=== PATIENT | female | born 1950 | race Caucasian/White ===

== ENCOUNTER 2016-08-12 13:09 | Inpatient (IN) | payer OTHER, MEDICARE ==
[~2016-08-12] VITALS: Ht 162.6 cm; Wt 119.1 kg
[2016-08-12] MEDS ORDERED: NITROGLYCERIN 0.4 MG SUBL TABLET As Ordered ONE (13:43)
[2016-08-12] MEDS ORDERED: ASPIRIN 81 MG CHEW TABLET As Ordered ONE (13:43)
[2016-08-12 13:59] LABS: BASO % 0.2 % (0.0-1.0); EOS # 0.1 K/mm3 (0.0-0.50); EOS % 0.5 % (0.0-3.0); LARGE UNSTAINED CELL # 0.1 K/mm3 (0.0-0.4); LARGE UNSTAINED CELL % 0.9 % (0.0-4.0); LYMPH # 0.9 K/mm3 (1.5-4.5); LYMPH % 7.8 % (24.0-44.0); MEAN CORPUSCULAR HEMOGLOBIN 29.2 pg (27.0-33.0); MEAN CORPUSCULAR HGB CONC 32.1 g/dl (32.0-36.5); MEAN CORPUSCULAR VOLUME 90.7 fl (80.0-96.0); MONO # 0.5 K/mm3 (0.0-0.8); MONO % 4.3 % (0.0-5.0); NEUTROPHILS # 9.7 K/mm3 (1.8-7.7); NEUTROPHILS % 86.3 % (36.0-66.0); PLATELET COUNT, AUTOMATED 172 k/mm3 (150-450); RED CELL DISTRIBUTION WIDTH 13.6 % (11.5-14.5); WHITE BLOOD COUNT 11.2 K/mm3 (4.0-10.0)
[2016-08-12 14:18] LABS: ANION GAP 9 MEQ/L (8-16); BLOOD UREA NITROGEN 16 MG/DL (7-18); CALCIUM LEVEL 8.8 MG/DL (8.8-10.2); CARBON DIOXIDE LEVEL 27 MEQ/L (21-32); CHLORIDE LEVEL 103 MEQ/L (98-107); CREATININE FOR GFR 0.97 MG/DL (0.55-1.02); GLOMERULAR FILTRATION RATE > 60.0 (>45); GLUCOSE, FASTING 181 MG/DL (80-110); POTASSIUM SERUM 3.7 MEQ/L (3.5-5.1); SODIUM LEVEL 139 MEQ/L (136-145)
[2016-08-12] MEDS ORDERED: ISOVUE-370 76% 100ML VIAL (Q9967) As Ordered ONE (14:43)
--- NOTE | 2016-08-12 15:04 | REP ---
CHEST X-RAY: TWO VIEWS. HISTORY: Chest pain. COMPARISON STUDY: December 11, 2015 FINDINGS: EKG monitoring electrodes and oxygen tubing overlie the chest. Heart is not enlarged. The lungs are well inflated and clear. Pleural angles are sharp. No significant bony abnormality is seen. IMPRESSION: No active disease. Signed by Kevan Bender MD 08/12/2016 03:06 P
--- NOTE | 2016-08-12 15:24 | REP ---
CT pulmonary angiogram: With IV contrast. History: Shortness of breath and chest pain. Comparison studies: No comparison CT studies. Comparison is made with today's chest x-ray. Contrast dose: 75 cc's of Isovue [address] technique: Helical scanning is acquired and overlapping 1.5 mm and contiguous 3 mm axial images are reformatted. In addition, a 3-D work station is deployed to generate thick slab maximum intensity projection images in sagittal and coronal imaging projections. CT pulmonary angiographic findings: There is good opacification of the pulmonary arterial tree. There is no CT evidence of pulmonary embolism. Thoracic aorta is normal in coarse, caliber and homogeneous in density. There is no evidence of aneurysm or dissection. No hilar or mediastinal mass or adenopathy is observed. No pleural effusion is seen. There is a mild pericardial effusion. No adrenal lesion is seen. The visualized upper abdominal structures are unremarkable. A prosthetic left shoulder joint is seen casting some spray artifact. The lung gerber show no evidence of infiltrate or mass lesion. No bony destructive lesion is appreciated. Impression: No CT evidence of pulmonary embolism. Small pericardial effusion noted. Otherwise unremarkable CT pulmonary angiogram. Signed by Kevan Bender MD 08/12/2016 04:34 P
[2016-08-12] MEDS ORDERED: IPRATROPIUM 0.5MG/ALBUTEROL 2.5MG INH SOL UD 3ML (DUONEB)(J7620) As Ordered ONE (15:54)
[2016-08-12] MEDS ORDERED: methylPREDNISolone INJ 125 MG/2 ML VIAL (J2930) As Ordered ONE (16:28)
[2016-08-12] MEDS ORDERED: ONDANSETRON 4MG/2ML VIAL (J2405) As Ordered ONE (16:43)
[2016-08-12] MEDS ORDERED: MORPHINE 4 MG/ML 1ML SYRINGE As Ordered ONE (16:43)
[2016-08-12] MEDS ORDERED: BIOT10005 PO (17:59)
[2016-08-12] MEDS ORDERED: VITA200T2 PO (17:59)
[2016-08-12] MEDS ORDERED: CITA20TA4 PO (17:59)
[2016-08-12] MEDS ORDERED: PREG50CA PO (17:59)
[2016-08-12] MEDS ORDERED: GLIM4TAB PO (17:59)
[2016-08-12] MEDS ORDERED: RIZA10TA2 PO (17:59)
[2016-08-12] MEDS ORDERED: LOSA100T36 PO (17:59)
[2016-08-12] MEDS ORDERED: VITATAB11 PO (17:59)
[2016-08-12] MEDS ORDERED: AMLO5TAB2 PO (17:59)
[2016-08-12] MEDS ORDERED: FISH1000 PO (17:59)
[2016-08-12] MEDS ORDERED: VITA100066 PO (17:59)
[2016-08-12] MEDS ORDERED: ATOR1TAB19 PO (17:59)
[2016-08-12] MEDS ORDERED: MAGN500T2 PO (17:59)
[2016-08-12] MEDS ORDERED: VITA500T88 PO (17:59)
[2016-08-12] MEDS ORDERED: FERR325T PO (17:59)
[2016-08-12] MEDS ORDERED: FOLI1TAB2 PO (17:59)
[2016-08-12] MEDS ORDERED: RABE1TAB PO (17:59)
[2016-08-12] MEDS ORDERED: JANU100T PO (17:59)
[2016-08-12] MEDS ORDERED: HYDR12.55 PO (17:59)
[2016-08-12] MEDS ORDERED: VITA400C2 PO (17:59)
[2016-08-12] MEDS ORDERED: PIOG30TA4 PO (17:59)
[2016-08-12] MEDS ORDERED: ALBUTEROL SULFATE 2.5 MG/0.5 ML INH NEB SOLN INH PRN (18:30)
[2016-08-12 19:04] LABS: ABG BASE EXCESS -2.8 (-2.0-2.0); ABG HCO3 22.2 MEQ/L (22.0-26.0); ABG PARTIAL PRESSURE CO2 39.4 mmHg (35.0-45.0); ABG PARTIAL PRESSURE O2 105.8 mmHg (75.0-100.0); ABG STANDARD HCO3 22.1 MEQ/L (22.0-26.0); ABG TOTAL CO2 23.4 MEQ/L (23.0-31.0); ABG pH (ARTERIAL) 7.369 UNITS (7.350-7.450)
--- NOTE | 2016-08-12 19:57 | HPEPDOC ---
Medical History and Physical Date of Admission 08/12/16 History and Physical PRIMARY CARE PROVIDER: ATTENDING: Lisa Warren M.D. CHIEF COMPLAINT: Shortness of breath HISTORY OF PRESENT ILLNESS: This is a 66-year-old female past history of COPD with no prior hospitalizations , diabetes mellitus, hypertension, polymyalgia rheumatica who presents complaining of shortness of breath. Patient states she was walking to work when she got out of her car heading towards her building when she started to develop dyspnea on exertion, wheezing, and chest pain. Patient states that many of her coworkers have been having upper respiratory tract infection recently. Denies any fevers or has chills. Also states her was recently diagnosed with pneumonia. Patient states that she's been having exertional chest pain over the past few weeks. States that it's usually midsternal, nonradiating. No prior episodes. No stress test in the past. Patient states the chest and that she had today was 10 out of 10 however it is now 6 out of 10. Also states that the pain was midsternal, reproducible on palpation, nonpleuritic, non-positional, no associated nausea/vomiting/ diaphoresis. No palpitations. Patient received 3 sublingual nitroglycerin with no relief. PAST MEDICAL HISTORY: As per HPI PAST SURGICAL HISTORY: Left shoulder surgery, right arm melanoma resection SOCIAL HISTORY: History of tobacco abuse 2 packs per day 40 years, quit 16 years ago. Denies alcohol or illicit drug use. FAMILY HISTORY: Sister with COPD ALLERGIES: Please see below. REVIEW OF SYSTEMS: HEENT: Denies sore throat/headache CARDIOVASCULAR: + chest pain. No palpitations RESPIRATORY: + shortness of breath/cough GASTROINTESTINAL: denies nausea/vomiting GENITOURINARY: Denies dysuria/urinary urgency. MUSCULOSKELETAL: Denies myalgias/arthralgias NEUROLOGICAL: Denies any focal weakness Rest of ROS negative. HOME MEDICATIONS: Please see below. PHYSICAL EXAMINATION: Vitals: (see below) General: No acute distress, laying comfortably in bed. HEENT: Moist mucous membranes. Neck: No JVD or lymphadenopathy Cardiac: Regular rhythm. Tachycardic.No murmurs Pulm: Expiratory wheezing b/l. No crackles. B/l rhonchi Abd: NT/ND + BS Ext: No edema or cyanosis LABORATORY DATA: See below. IMAGING: CTA Chest 08/12/16 CT pulmonary angiographic findings: There is good opacification of the pulmonary arterial tree. There is no CT evidence of pulmonary embolism. Thoracic aorta is normal in coarse, caliber and homogeneous in density. There is no evidence of aneurysm or dissection. No hilar or mediastinal mass or adenopathy is observed. No pleural effusion is seen. There is a mild pericardial effusion. No adrenal lesion is seen. The visualized upper abdominal structures are unremarkable. A prosthetic left shoulder joint is seen casting some spray artifact. The lung gerber show no evidence of infiltrate or mass lesion. No bony destructive lesion is appreciated. Impression: No CT evidence of pulmonary embolism. Small pericardial effusion noted. Otherwise unremarkable CT pulmonary angiogram. MICROBIOLOGY: Please see below. ASSESSMENT/PLAN: COPD exacerbation - patient started to develop dyspnea exertion this morning with associated wheezing. States she had a nonproductive cough. States her coworkers have been having upper is at her tract infections. Mild leukocytosis. Has a low-grade fever. We'll start patient on doxycycline, Solu-Medrol, nebs. Atypical chest pain- appears to be reproducible on palpation. Likely costochondritis. Although, patient does have new right bundle branch block on EKG. We'll trend cardiac enzymes. Echocardiogram. Started on aspirin. Received 3 doses of sublingual nitroglycerin without relief. States the aspirin did help. Patient did states that she has been having chest pain with exertion over the past few weeks. Will likely need a stress test outpatient. Diabetes mellitus- we'll hold by mouth meds for now. Sliding scale insulin. Hypertension- continue home meds Polymyalgia rheumatica- states she's been on steroids for the past 2 years however this was recently stopped. DVT prophylaxis- enoxaparin Patient will be followed by Dr. Suzi Villa starting 08/13/16 at 7 AM. Vital Signs Blood pressure 131/90, heart rate 102, respiratory rate 16, O2 saturation 96% on room air, MAXIMUM TEMPERATURE 100.4 Laboratory Data Labs 24H Laboratory Tests 2 08/12/16 13:30: Lactic Acid (Sepsis) 1.6 08/12/16 13:37: Anion Gap 9, B-Type Natriuretic Peptide 104H, White Blood Count 11.2H, Red Blood Count 3.72L, Hemoglobin 10.8L, Hematocrit 33.7L, Mean Corpuscular Volume 90.7, Mean Corpuscular Hemoglobin 29.2, Mean Corpuscular Hemoglobin Concent 32.1 , Red Cell Distribution Width 13.6, Platelet Count 172, Neutrophils (%) (Auto) 86.3H, Lymphocytes (%) (Auto) 7.8L, Monocytes (%) (Auto) 4.3, Eosinophils (%) ( Auto) 0.5, Basophils (%) (Auto) 0.2, Neutrophils # (Auto) 9.7H, Lymphocytes # ( Auto) 0.9L, Monocytes # (Auto) 0.5, Eosinophils # (Auto) 0.1, Basophils # (Auto ) 0.0, Blood Urea Nitrogen 16, Creatinine 0.97, Sodium Level 139, Potassium Level 3.7, Chloride Level 103, Carbon Dioxide Level 27, Calcium Level 8.8, Total Creatine Kinase 78, Creatine Kinase MB 1.0, Creatine Kinase MB Relative Index 1.28, Glomerular Filtration Rate > 60.0, Large Unclassified Cells # 0.1, Large Unclassified Cells % 0.9, Troponin I < 0.02 08/12/16 18:48: Arterial Blood pH 7.369, Arterial Blood Partial Pressure CO2 39.4, Arterial Blood Partial Pressure O2 105.8H, Arterial Blood Total CO2 23.4, Arterial Blood HCO3 22.2, Arterial Blood Base Excess -2.8L, Arterial Blood Oxygen Saturation 98.0, Blood Gas Bicarbonate Standard 22.1 CBC/BMP Laboratory Tests 08/12/16 13:37 Calcium Level 8.8, Total Creatine Kinase 78, Red Blood Count 3.72 L, Mean Corpuscular Volume 90.7, Mean Corpuscular Hemoglobin 29.2, Mean Corpuscular Hemoglobin Concent 32.1, Red Cell Distribution Width 13.6, Neutrophils (%) (Auto ) 86.3 H, Lymphocytes (%) (Auto) 7.8 L, Monocytes (%) (Auto) 4.3, Eosinophils (% ) (Auto) 0.5, Basophils (%) (Auto) 0.2, Neutrophils # (Auto) 9.7 H, Lymphocytes # (Auto) 0.9 L, Monocytes # (Auto) 0.5, Eosinophils # (Auto) 0.1, Basophils # ( Auto) 0.0 Microbiology Microbiology 08/12/16 Blood Culture, Received Pending 08/12/16 Blood Culture, Received Pending Home Medications Scheduled (Rabeprazole Sodium) 20 Mg Tab 20 MG PO QHS Amlodipine Besylate (Amlodipine Besylate) 5 Mg Tab 5 MG PO DAILY Ascorbic Acid (Vitamin C) 500 Mg Tab 500 MG PO QHS Atorvastatin Calcium (Atorvastatin Calcium) 10 Mg Tab 10 MG PO DAILY B1/B2/B3/B5/B6 (Vitamin B Complex) 1 Tab Tab 1 TAB PO QHS Biotin (Vitamin H) (Biotin) 1,000 Mcg Tab 1,000 MCG PO QHS Cholecalciferol (Vitamin D) 1,000 Unit Tab 1,000 UNIT PO QHS Citalopram Hydrobromide (Citalopram Hydrobromide) 20 Mg Tab 20 MG PO QHS Ferrous Sulfate (Ferrous Sulfate) 325 Mg Tab 325 MG PO DAILY Fish Oil (Fish Oil) 1,000 Mg Cap 1,000 MG PO QHS Folic Acid (Folic Acid) 1 Mg Tab 1 MG PO DAILY Glimepiride (Glimepiride) 4 Mg Tab 4 MG PO QHS Hydrochlorothiazide (Hydrochlorothiazide) 12.5 Mg Tab 12.5 MG PO DAILY Losartan Potassium (Losartan Potassium) 100 Mg Tab 100 MG PO DAILY Magnesium Oxide (Magnesium) 500 Mg Tab 500 MG PO DAILY Pioglitazone Hydrochloride (Pioglitazone HCl) 30 Mg Tab 30 MG PO QHS Pregabalin (Lyrica) 50 Mg Cap 50 MG PO BID Pyridoxine HCl (Vitamin B-6) 200 Mg Tab 200 MG PO QHS Sitagliptin Phosphate (Januvia) 100 Mg Tab 100 MG PO QHS Vitamin E (Vitamin E) 400 Unit Cap 400 UNIT PO QHS Scheduled PRN Rizatriptan Benzoate (Rizatriptan Benzoate) 10 Mg Tab 10 MG PO PRN PRN PRN MIGRAINE Allergies Coded Allergies: Codeine (Unverified Allergy, Unknown, RASH, 08/12/16) Penicillins (Unverified Allergy, Unknown, DIZZINESS / RASH, 08/12/16) LISA WARREN MD Aug 12, 2016 19:57
[2016-08-12 20:00] VITALS: BP 102/56
[2016-08-12] MEDS ORDERED: PREGABALIN 50 MG CAP (LYRICA) PO SCH (21:00)
[2016-08-12] MEDS ORDERED: PREGABALIN 25 MG CAP (LYRICA) PO SCH (21:00)
[2016-08-12] MEDS ORDERED: DOXYCYCLINE HYCLATE 100 MG in D5W MINI-BAG PLUS 100 ML IV SCH (21:00)
[2016-08-12] MEDS ORDERED: PREGABALIN 25 MG CAP (LYRICA) As Ordered ONE (21:52)
[2016-08-12] MEDS: VITAMIN B COMPLEX/VIT C CAP PO SCH (21:56)
--- NOTE | 2016-08-12 21:56 | ECGEPIP ---
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
[2016-08-12] MEDS: OMEGA-3 1050MG CAPSULE PO SCH (21:57)
[2016-08-12] MEDS: VITAMIN D 1,000 INTERNATIONAL UNITS TABLET PO SCH (21:57)
[2016-08-12] MEDS: VITAMIN E 400 INTERNATIONAL UNITS CAP PO SCH (21:57)
[2016-08-12] MEDS: CitaloPRAM (CeleXA) 20 MG TAB PO SCH (21:57)
[2016-08-12] MEDS ORDERED: PREGABALIN 25 MG CAP (LYRICA) PO ONE (22:00)
[2016-08-13] VITALS (8 sets, daily range): BP systolic 102–120; BP diastolic 52–60; O2SAT 97
[2016-08-13] MEDS ORDERED: methylPREDNISolone INJ 125 MG/2 ML VIAL (J2930) As Ordered ONE ×3 (00:01→15:00)
[2016-08-13] MEDS: methylPREDNISolone INJ 125 MG/2 ML VIAL (J2930) IV SCH ×4 (00:05→23:57)
[2016-08-13] MEDS ORDERED: IPRATROPIUM 0.5MG/ALBUTEROL 2.5MG INH SOL UD 3ML (DUONEB)(J7620) As Ordered ONE ×4 (00:13→12:16)
[2016-08-13] MEDS: IPRATROPIUM 0.5MG/ALBUTEROL 2.5MG INH SOL UD 3ML (DUONEB)(J7620) NEB SCH ×7 (00:17→23:32)
[2016-08-13] MEDS ORDERED: NITROGLYCERIN 0.4 MG SUBL TABLET SL PRN (07:00)
--- NOTE | 2016-08-13 07:54 | IPN ---
DATE OF VISIT: 08/13/2016 The patient is seen and examined at the bedside. Chart has been reviewed this morning. The patient complains of epigastric, abdominal pain that radiates slightly to the back. She denies any diaphoresis, palpitations, lightheadedness, dizziness. She describes the pain as crampy and achy. No radiation to the neck or down the left arm. There is some shortness of breath with occasional wheezing. No prior episodes in the past. Worst when she takes a deep breath. Unsure if unrelated to her meals. PHYSICAL EXAMINATION: VITAL SIGNS: Temperature 97, pulse 78, respirations 20, blood pressure 103/58, 94% on 4 liters nasal cannula. GENERAL: The patient is awake, alert and oriented to person, place and time. HEENT/NECK: She has no cyanosis, icterus, or jaundice. No jugular venous distention or thyromegaly. No cervical lymphadenopathy. Mouth is moist. No pharyngeal erythema or tonsillar exudates. HEART: S1, S2, sinus rhythm with episodes of sinus tachycardia, no murmurs, rubs or gallops noted. LUNGS: Decreased breath sounds with expiratory wheezing bilaterally. No crackles or rhonchi. ABDOMEN: Obese, soft, nontender, nondistended. Positive bowel sounds. EXTREMITIES: No cyanosis, clubbing or pitting edema. LABORATORY DATA: 08/13: CBC, metabolic panel are currently not available. Troponin is negative. IMAGING STUDIES: CT of chest no consolidation. No pulmonary embolism. Small pericardial effusion. ASSESSMENT AND PLAN: This is a 66-year-old female with history of chronic pulmonary obstructive disease (COPD), type 2 diabetes, hypertension, polymyalgia rheumatica, complaint of acute onset of epigastric abdominal pain and chest pain described as achy accompanied with shortness of breath, wheezing. No fever or chills. The patient has been exposed to recent co-workers with respiratory tract infections but no fever or chills. The patient's was recently diagnosed with pneumonia. CT of the chest showed no pulmonary embolism (PE), pneumonia but small pericardial effusion. Troponins have been unremarkable. She has had no relief with nitroglycerine. CURRENT ISSUES: 1. Atypical epigastric abdominal pain/chest pain. Appears to be costochondritis. The patient has a new right bundle branch block on EKG. Will obtain an echocardiogram in light of small pericardial effusion, as well on CT of the chest. Evaluate further. The patient will be undergoing an upper gastrointestinal (GI) series to rule out hiatal hernia or reflux disease. Will start on empiric proton pump inhibitor (PPI) and Carafate. Nitroglycerine as needed. Continue to cycle to cardiac markers every 6 hourly and repeat the 12 lead EKG on patient due to cardiovascular risk factors of diabetes, hypertension, post menopausal state and prior history of smoking. Will require an outpatient stress test. 2. Chronic pulmonary obstructive disease (COPD) exacerbation with active wheezing and dyspnea on exertion. She has had a nonproductive cough but no fever or chills and recent exposure to upper respiratory infection and pneumonia from . The patient has been started on doxycycline, Solu-Medrol and nebulizers, inhaled steroids. 3. Type 2 diabetes. Currently nothing by mouth for upper gastrointestinal series. Sliding scale every 6 hourly. Nothing by mouth, check A1c, continue sliding scale, resume home medications. Avoid metformin in light of recent contrast study. 4. Hypertension. Continue home medications. 5. Polymyalgia rheumatica. She has been on steroids for two years which was recently stopped. 6. Deep venous thrombosis (DVT) prophylaxis. With Lovenox. MTDD
[2016-08-13 08:03] LABS: EOS # 0.1 K/mm3 (0.0-0.50); EOS % 0.5 % (0.0-3.0); LARGE UNSTAINED CELL % 0.3 % (0.0-4.0); LYMPH # 0.5 K/mm3 (1.5-4.5); LYMPH % 4.5 % (24.0-44.0); MEAN CORPUSCULAR HEMOGLOBIN 29.2 pg (27.0-33.0); MEAN CORPUSCULAR HGB CONC 31.1 g/dl (32.0-36.5); MEAN CORPUSCULAR VOLUME 94.1 fl (80.0-96.0); MONO # 0.3 K/mm3 (0.0-0.8); MONO % 2.2 % (0.0-5.0); NEUTROPHILS # 10.5 K/mm3 (1.8-7.7); NEUTROPHILS % 92.4 % (36.0-66.0); PLATELET COUNT, AUTOMATED 159 k/mm3 (150-450); RED CELL DISTRIBUTION WIDTH 13.4 % (11.5-14.5); WHITE BLOOD COUNT 11.4 K/mm3 (4.0-10.0)
[2016-08-13 08:29] LABS: ALBUMIN/GLOBULIN RATIO 0.79 (1.00-1.93); ALKALINE PHOSPHATASE 65 U/L (45-117); ALT/SGPT 13 U/L (12-78); ANION GAP 12 MEQ/L (8-16); AST/SGOT 7 U/L (15-37); BILIRUBIN,TOTAL 0.4 MG/DL (0.2-1.0); BLOOD UREA NITROGEN 29 MG/DL (7-18); CALCIUM LEVEL 8.7 MG/DL (8.8-10.2); CARBON DIOXIDE LEVEL 24 MEQ/L (21-32); CHLORIDE LEVEL 102 MEQ/L (98-107); CHOLESTEROL LEVEL 109 MG/DL (<200); CREATININE FOR GFR 1.76 MG/DL (0.55-1.02); GLOMERULAR FILTRATION RATE 30.7 (>45); GLUCOSE, FASTING 389 MG/DL (80-110); MAGNESIUM LEVEL 1.9 MG/DL (1.8-2.4); POTASSIUM SERUM 3.9 MEQ/L (3.5-5.1); SODIUM LEVEL 138 MEQ/L (136-145); TOTAL PROTEIN 6.8 GM/DL (6.4-8.2); TRIGLYCERIDES LEVEL 29 MG/DL (<150)
[2016-08-13] MEDS ORDERED: PREGABALIN 25 MG CAP (LYRICA) PO ONE (09:00)
[2016-08-13] MEDS ORDERED: ASPIRIN 81 MG CHEW TABLET PO ONE (09:00)
[2016-08-13] MEDS: SUCRALFATE SUSP 1GM/10ML UD PO SCH ×4 (09:06→23:56)
[2016-08-13] MEDS: DOXYCYCLINE HYCLATE 100 MG in D5W MINI-BAG PLUS 100 ML IV SCH ×2 (09:06→22:07)
[2016-08-13] MEDS ORDERED: PREGABALIN 25 MG CAP (LYRICA) As Ordered ONE (09:10)
[2016-08-13] MEDS: PANTOPRAZOLE 40MG INJ (PROTONIX) (C9113) IV SCH (09:17)
[2016-08-13] MEDS ORDERED: E-Z-GAS II EFFERVESCENT PACKET (SODIUM BICARB./CITRIC ACID/SIMETHICONE) As Ordered ONE (11:39)
[2016-08-13] MEDS ORDERED: E-Z-PAQUE 96% w/w SUSP 176GM BTL As Ordered ONE (11:39)
[2016-08-13] MEDS ORDERED: E-Z-HD 98% w/w 340GM SUSP BTL As Ordered ONE (11:40)
[2016-08-13] MEDS: amLODIPine 5 MG TAB PO SCH (14:56)
[2016-08-13] MEDS: LOSARTAN 50 MG TAB PO SCH (14:57)
[2016-08-13] MEDS: FERROUS SULFATE 325MG TAB PO SCH (14:57)
[2016-08-13] MEDS: ATORVASTATIN 10 MG TAB PO SCH (14:57)
[2016-08-13] MEDS: FOLIC ACID 1 MG TAB PO SCH (14:58)
--- NOTE | 2016-08-13 15:33 | EDDOCDS ---
Nurse's Notes [facility] Name: Qiana Morales Age: 66 yrs Sex: Female : 1950 Arrival Date: 08/12/2016 Time: 13:09 Bed Admit Hold Private MD: Royal Duran FPA Diagnosis: Chronic obstructive pulmonary disease with (acute) exacerbation;Pericardial effusion (noninflammatory);Abnormal electrocardiogram [ECG] [EKG];Chest pain, unspecified Presentation: 08/12 13:14 Presenting complaint: Patient states: Chest pain and SOB began this am. Adult Sepsis mlb1 Screening: The patient does not have new or worsening altered mentation. Patient's respiratory rate is less than 22. Systolic blood pressure is greater than 100. Patient has a qSOFA score of 0- Negative Sepsis Screen. Suicide/Homicide risk assessment- the patient denies having any suicidal and/or homicidal ideations and does not present with any other emotional, behavioral or mental health complaints. 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 Transition of care: patient was not received from another setting of care. 13:14 Acuity: GARIMA Level 2 mlb1 13:14 Method Of Arrival: Walkin/Carried/Asstd mlb1 13:19 Adult Sepsis Screening: Patient has a respiratory rate of greater than or equal to 22 mlb1 (1 point). Triage Assessment: 13:19 General: Appears distressed, obese, Behavior is anxious, cooperative. Pain: Location: mlb1 mid-sternal area Pain currently is 10 out of 10 on a pain scale. Respiratory: Onset: The symptoms/episode began/occurred today, Airway is patent Respiratory effort is labored. Historical: - Allergies: Codeine Sulfate; PENICILLINS; - Home Meds: 1. pregabalin 50 mg Oral cap twice a day 2. magnesium oxide 500 mg Oral cap daily 3. folic acid 1 mg Oral tab 1 tab once daily 4. losartan 100 mg oral tab once daily 5. atorvastatin 10 mg oral tab 1 tab once daily 6. ferrous sulfate 325 mg (65 mg iron) Oral tab daily 7. amlodipine 5 mg Oral tab 1 tab once daily 8. citalopram 20 mg Oral tab 1 tab once daily 9. pioglitazone 30 mg oral tab 1 tab once daily 10. Januvia 100 mg oral tab 1 tab once daily 11. rabeprazole 20 mg oral TbEC 1 tab once daily 12. glimepiride 4 mg Oral tab 1 tab once daily 13. rizatriptan 10 mg oral tab 1 tablet at onset of KHANNA, may repeat in 2 hours 14. Vitamin B-6 200 mg Oral tab daily - PMHx: COPD; Diabetes - NIDDM: controlled; Diabetic Neuropathy; Hypercholesterolemia; Hypertension; polymyalgia rheumatica; - PSHx: Shoulder Arthroplasty, Left; - Social history: Smoking status: Patient states former smoker of tobacco. No barriers to communication noted, The patient speaks fluent Uzbek, Speaks appropriately for age. - Family history: Not pertinent. - : The pt / caregiver states he / she is not on anticoagulants. Home medication list is obtained from the patient. - Exposure Risk Screening:: None identified. Screenin:01 Screening information is obtained from the patient. Fall risk: No risks identified. [facility] Assistance ADL's: requires no assistance with activities of daily living. Abuse/DV Screen: The patient / caregiver reports he/she is: not in a situation that causes fear, pain or injury. Nutritional screening: No deficits noted. Advance Directives: There is no active DNR order. home support is adequate. Assessment: 14:05 General: Appears distressed, ill, Behavior is cooperative. Pain: Location: chest Pain [facility] currently is 10 out of 10 on a pain scale. Neurological: Level of Consciousness is awake, alert, Oriented to person, place, time. Cardiovascular: Rhythm is sinus tachycardia Chest pain is described as Pain is 10 out of 10 on a pain scale. Respiratory: Airway is patent Respiratory effort is labored, Respiratory pattern is tachypnea Breath sounds are diminished bilaterally. Derm: Skin is clammy, Skin is normal, Skin temperature is cool. 14:07 General: Appears uncomfortable. tachypneic. resp shallow with poor insp effort. breath k sounds obscured by body habitus. Indicates sternal discomfort that is increased with palpation of sternal margin. Breath sounds are equal bilaterally and equally diminished. reports no change in discomfort with NTG. bilateral leg edema , pitting to both lower legs.. 15:12 General: Appears tachypneic and intolerant of activity when ambulated short distance to [facility] bathroom. reprots + pain which impeded ability to take full breath. readily recovers from exertion of activity.. 16:24 General: Appears states slightly less chest discomfort 9/10. continues tachypneic with k resting rate of 26. No cough appreciated. end expiratory wheeze noted... 16:53 General: Appears medicated as per order for pain management. jmk 17:07 General: Appears states " maybe a little" less pain.. jmk 18:20 General: Appears states pain has decreased to 6/10. resting with eyes closed . pursed k lip breathing. poor inspiratory effort. states typically has 8/10 discomfort on daily basis.. 19:28 General: report given to NELA [place]. pt moved to room 21. pt able to stand and pivot to [facility] bed. . Vital Signs: 13:11 BP 146 / 62; Pulse 106; Resp 32 S; Pulse Ox 93% on R/A; Weight 102.06 kg (R); Height 5 mlb1 ft. 4 in. (162.56 cm) (R); Pain 4/10; 13:46 BP 131 / 90 (auto/); cjh 13:50 Pulse 102 MON; Pulse Ox 96% ; cjh 13:53 Pulse 102 MON; Pulse Ox 93% ; cjh 13:53 BP 131 / 84 (auto/); cjh 13:54 Pulse 102 MON; Pulse Ox 92% ; cjh 13:54 BP 142 / 70 (auto/); Temp 100.4(O); cjh 14:01 Pulse 100 MON; Pulse Ox 93% ; cjh 14:01 BP 128 / 67 (auto/); cjh 14:09 BP 126 / 64 (auto/); jmk 14:09 Pulse 100 MON; Pulse Ox 96% ; jmk 14:23 Pulse 94 MON; Pulse Ox 99% ; jmk 14:24 BP 117 / 67 (auto/); jmk 14:39 BP 128 / 75 (auto/); jmk 14:39 Pulse 94 MON; Pulse Ox 98% ; jmk 14:53 Pulse 100 MON; Pulse Ox 94% ; jmk 14:54 BP 152 / 68 (auto/); jmk 15:09 BP 145 / 69 (auto/); jmk 15:09 Pulse 96 MON; Pulse Ox 98% ; jmk 15:38 Pulse 92 MON; Pulse Ox 98% ; jmk 15:39 BP 130 / 65 (auto/); jmk 15:53 Pulse 88 MON; Pulse Ox 98% ; jmk 15:54 BP 120 / 58 (auto/); jmk 16:08 Pulse 92 MON; Pulse Ox 100% ; jmk 16:09 BP 125 / 61 (auto/); jmk 16:23 Pulse 108 MON; Pulse Ox 99% ; jmk 16:24 BP 129 / 66 (auto/); jmk 16:38 Pulse 104 MON; Pulse Ox 97% ; jmk 16:39 BP 124 / 79 (auto/); jmk 19:13 Pulse 96 MON; Pulse Ox 95% ; mlc 13:11 Body Mass Index 38.62 (102.06 kg, 162.56 cm) mlb1 13:11 TEMP WILL NEED TO BE TAKEN mlb1 Vitals: 13:11 Log In Time: August 12, 2016 at 13:11. RN notified that patient meets Red Flag gr2 criteria. ED Course: 13:11 Patient visited by Pedrito Fragoso. gr2 13:11 Royal Duran is Private Physician. gr2 13:11 Patient moved to Waiting gr2 13:14 Patient visited by Pedrito Fragoso. gr2 13:14 Patient visited by Royal Hurtado, NELA. mlb1 13:14 Patient moved to Pre RCE gr2 13:15 Triage Initiated mlb1 13:20 Patient visited by Royal Hurtado, RN. mlb1 13:20 Patient moved to 8 mlb1 13:25 EKG done. (by ED staff). Reviewed by Italia Uriarte MD. jrd 13:26 Italia Uriarte MD is Attending Physician. br1 13:29 Patient visited by Kev Hoskins PCA. jrd 13:33 Patient visited by Italia Uriarte MD. br1 14:00 Inserted saline lock: 20 gauge in left antecubital area. jmk 14:04 -Blood Culture Sent. [facility] 14:07 The patient / caregiver is instructed regarding the plan of care and ED course. jmk 15:15 Patient visited by Jose Raul Acevedo,NELA. jmk 15:33 Chest, 2 View (pa\\E\\lat) Returned. EDMS 15:33 CT Chest Angio R/O PE Returned. EDMS 16:34 Patient visited by Jose Raul Acevedo,NELA. jmk 16:51 [facility] Payment Agreement was scanned into [employer] and attached to record. zo 16:53 Patient visited by Jose Raul Acevedo,RN. jmk 17:09 Patient visited by Jose Raul Acevedo,NELA. jmk 17:15 Rod Warren is Hospitalizing Provider. br1 17:22 CT Chest Angio R/O PE Returned. EDMS 18:23 Patient visited by Jose Raul Acevedo,NELA. jmk 18:47 Patient moved to Admit Hold kp 18:55 Kristin Zambrano,NELA is Primary Nurse. mlc 19:28 Patient visited by Kristin Zambrano RN. mlc 22:11 EKG-ADULT Returned. EDMS 08/13 09:01 T-Sheet-- Draft Copy was scanned into [employer] and attached to record. gb 09:38 Primary Nurse role handed off by Kristin Zambrano RN srm Administered Medications: 08/12 13:46 Drug: Aspirin 324 mg [aspirin 81 mg chewable tablet (4 tabs)] Route: PO; [facility] 13:47 Drug: Nitrostat 0.4 mg [Nitrostat 0.4 mg sublingual tablet (1 tabs)] Route: Sublingual; [facility] 13:54 Drug: Nitrostat 0.4 mg [Nitrostat 0.4 mg sublingual tablet (1 tabs)] Route: Sublingual; [facility] 13:55 Follow up: Response: No significant change.; 04/13 [facility] 14:03 Drug: Nitrostat 0.4 mg [Nitrostat 0.4 mg sublingual tablet (1 tabs)] Route: Sublingual; [facility] 14:04 Follow up: Response: No significant change.; 04/13 [facility] 15:50 Drug: Albuterol-Ipratropium 1 neb [ipratropium-albuterol 0.5 mg-3 mg(2.5 mg base)/3 mL js11 nebulization soln (1 neb)] Route: Nebulizer; 16:10 Drug: Albuterol-Ipratropium 1 neb [ipratropium-albuterol 0.5 mg-3 mg(2.5 mg base)/3 mL js11 nebulization soln (1 neb)] Route: Nebulizer; 16:18 Drug: Albuterol-Ipratropium 1 neb [ipratropium-albuterol 0.5 mg-3 mg(2.5 mg base)/3 mL js11 nebulization soln (1 neb)] Route: Nebulizer; 16:32 Drug: Solu-MEDROL 125 mg [Solu-Medrol 500 mg intravenous solution (125 mg)] Route: IVP; [facility] Site: left antecubital; 16:52 Drug: morphine 4 mg Route: IVP; Site: left antecubital; [facility] 16:52 Drug: Ondansetron 4 mg Route: IVP; Site: left antecubital; [facility] Intake: RT: 15:50 Initial Med Neb Given as ordered Patient was instructed and evaluated on procedure js11 Patient tolerated procedure well without adverse effect. O2 via nasal cannula \\T\\ 4L/min. Respiratory: Breath sounds are diminished bilaterally. 16:10 Subsequent Med Neb Given as ordered Patient tolerated procedure well without adverse js11 effect. Respiratory: Breath sounds are diminished bilaterally. 16:19 Subsequent Med Neb Given as ordered Patient tolerated procedure well without adverse js11 effect. Respiratory: Breath sounds are diminished bilaterally. 18:53 ABG's drawn from right radial artery allens test done and positive pressure held for 5 js11 minutes no bleeding noted specimen sent pt. tolerated well. O2 via nasal cannula \\T\\ 4L/min. Order Results: Lab Order: Basic Metabolic Profile; SPEC'M 08/12/16 13:37 Test: GLUCOSE, FASTING; Value: 181; Range: 80-110; Abnormal: Above high normal; Units: MG/DL; Status: F Test: BLOOD UREA NITROGEN; Value: 16; Range: 7-18; Units: MG/DL; Status: F Test: CREATININE FOR GFR; Value: 0.97; Range: 0.55-1.02; Units: MG/DL; Status: F Test: GLOMERULAR FILTRATION RATE; Value: > 60.0; Range: >45; Status: F Test: SODIUM LEVEL; Value: 139; Range: 136-145; Units: MEQ/L; Status: F Test: POTASSIUM SERUM; Value: 3.7; Range: 3.5-5.1; Units: MEQ/L; Status: F Test: CHLORIDE LEVEL; Value: 103; Range: 98-107; Units: MEQ/L; Status: F Test: CARBON DIOXIDE LEVEL; Value: 27; Range: 21-32; Units: MEQ/L; Status: F Test: ANION GAP; Value: 9; Range: 8-16; Units: MEQ/L; Status: F Test: CALCIUM LEVEL; Value: 8.8; Range: 8.8-10.2; Units: MG/DL; Status: F Test Note: ; Units are mL/min/1.73 m2 Chronic Kidney Disease Staging per NKF: Stage I & II GFR >=60 Normal to Mildly Decreased Stage III GFR 30-59 Moderately Decreased Stage IV GFR 15-29 Severely Decreased Stage V GFR <15 Very Little GFR Left ESRD GFR <15 on SCALE BALANCER Lab Order: CBC with Diff; SPEC'M 08/12/16 13:37 Test: WHITE BLOOD COUNT; Value: 11.2; Range: 4.0-10.0; Abnormal: Above high normal; Units: K/mm3; Status: F Test: RED BLOOD COUNT; Value: 3.72; Range: 4.00-5.40; Abnormal: Below low normal; Units: M/mm3; Status: F Test: HEMOGLOBIN; Value: 10.8; Range: 12.0-16.0; Abnormal: Below low normal; Units: g/dl; Status: F Test: HEMATOCRIT; Value: 33.7; Range: 36.0-47.0; Abnormal: Below low normal; Units: %; Status: F Test: MEAN CORPUSCULAR VOLUME; Value: 90.7; Range: 80.0-96.0; Units: fl; Status: F Test: MEAN CORPUSCULAR HEMOGLOBIN; Value: 29.2; Range: 27.0-33.0; Units: pg; Status: F Test: MEAN CORPUSCULAR HGB CONC; Value: 32.1; Range: 32.0-36.5; Units: g/dl; Status: F Test: RED CELL DISTRIBUTION WIDTH; Value: 13.6; Range: 11.5-14.5; Units: %; Status: F Test: PLATELET COUNT, AUTOMATED; Value: 172; Range: 150-450; Units: k/mm3; Status: F Test: NEUTROPHILS %; Value: 86.3; Range: 36.0-66.0; Abnormal: Above high normal; Units: %; Status: F Test: LYMPH %; Value: 7.8; Range: 24.0-44.0; Abnormal: Below low normal; Units: %; Status: F Test: MONO %; Value: 4.3; Range: 0.0-5.0; Units: %; Status: F Test: EOS %; Value: 0.5; Range: 0.0-3.0; Units: %; Status: F Test: BASO %; Value: 0.2; Range: 0.0-1.0; Units: %; Status: F Test: LARGE UNSTAINED CELL %; Value: 0.9; Range: 0.0-4.0; Units: %; Status: F Test: NEUTROPHILS #; Value: 9.7; Range: 1.8-7.7; Abnormal: Above high normal; Units: K/mm3; Status: F Test: LYMPH #; Value: 0.9; Range: 1.5-4.5; Abnormal: Below low normal; Units: K/mm3; Status: F Test: MONO #; Value: 0.5; Range: 0.0-0.8; Units: K/mm3; Status: F Test: EOS #; Value: 0.1; Range: 0.0-0.50; Units: K/mm3; Status: F Test: BASO #; Value: 0.0; Range: 0.0-0.2; Units: K/mm3; Status: F Test: LARGE UNSTAINED CELL #; Value: 0.1; Range: 0.0-0.4; Units: K/mm3; Status: F Lab Order: Cardiac Injury Profile; SPEC'M 08/12/16 13:37 Test: CPK CREATINE PHOSPHOKINASE; Value: 78; Range: 26-192; Units: U/L; Status: F Test: CK-MB VALUE MASS; Value: 1.0; Range: 0.0-3.6; Units: NG/ML; Status: F Test: MB/CK RELATIVE INDEX; Value: 1.28; Range: < OR =4; Status: F Test Note: ; DIAGNOSIS CRITERIA MMB ng/ml Relative Index (RI) NON-AMI < or = 5 N/A KERN ZONE > 5 < or = 4 AMI > 5 > 4 Lab Order: Troponin; SPEC'M 08/12/16 13:37 Test: TROPONIN I; Value: < 0.02; Range: < 0.10; Units: NG/ML; Status: F Test Note: ; Troponin I Reference Interval for [employer] LOCI: 99th Percentile= 0.00-0.045 ng/ml Risk Stratification: <= 0.10 ng/ml Decreased Risk for Adverse Clinical Events. 0.10-1.50 ng/ml Increased Risk for Adverse Clinical Events. Evaluation of additional criterion and/or repeat testing in 2-6 hours is suggested to rule out myocardial damage. >= 1.50 ng/ml Indicative of Myocardial Injury. Lab Order: BNP; [facility] 08/12/16 13:37 Test: BRAIN NATRIURETIC PEPTIDE; Value: 104; Range: <100; Abnormal: Above high normal; Units: PG/ML; Status: F Lab Order: -Blood Culture; [facility] 08/12/16 13:37 Test: BLOOD CULTURE; Value: No growth after 24 hours . All specimens observed; Status: F Test: BLOOD CULTURE; Value: for 7 days. Results final at that time.; Status: F Lab Order: Lactic Acid (Kern tube on ice); [facility] 08/12/16 13:30 Test: LACTIC ACID SEPSIS PROTOCOL; Value: 1.6; Range: 0.4-2.0; Units: MMOL/L; Status: F Lab Order: BLOOD CULTURES; [facility] 08/12/16 13:37 Test: BLOOD CULTURE; Value: No growth after 24 hours . All specimens observed; Status: F Test: BLOOD CULTURE; Value: for 7 days. Results final at that time.; Status: F Lab Order: ARTERIAL BLOOD GAS; [facility] 08/12/16 18:48 Test: ABG pH (ARTERIAL); Value: 7.369; Range: 7.350-7.450; Units: UNITS; Status: F Test: ABG PARTIAL PRESSURE CO2; Value: 39.4; Range: 35.0-45.0; Units: mmHg; Status: F Test: ABG PARTIAL PRESSURE O2; Value: 105.8; Range: 75.0-100.0; Abnormal: Above high normal; Units: mmHg; Status: F Test: ABG TOTAL CO2; Value: 23.4; Range: 23.0-31.0; Units: MEQ/L; Status: F Test: ABG HCO3; Value: 22.2; Range: 22.0-26.0; Units: MEQ/L; Status: F Test: ABG BASE EXCESS; Value: -2.8; Range: -2.0-2.0; Abnormal: Below low normal; Status: F Test: ABG STANDARD HCO3; Value: 22.1; Range: 22.0-26.0; Units: MEQ/L; Status: F Test: ABG O2 SATURATION; Value: 98.0; Range: 95.0-99.0; Units: %; Status: F Lab Order: CARDIAC INJURY PROFILE; [facility]08/12/16 21:52 Test: CPK CREATINE PHOSPHOKINASE; Value: 57; Range: 26-192; Units: U/L; Status: F Test: CK-MB VALUE MASS; Value: 1.0; Range: 0.0-3.6; Units: NG/ML; Status: F Test: MB/CK RELATIVE INDEX; Value: 1.75; Range: < OR =4; Status: F Test Note: ; DIAGNOSIS CRITERIA MMB ng/ml Relative Index (RI) NON-AMI < or = 5 N/A KERN ZONE > 5 < or = 4 AMI > 5 > 4 Lab Order: TROPONIN; 08/12/16 21:52 Test: TROPONIN I; Value: < 0.02; Range: < 0.10; Units: NG/ML; Status: F Test Note: ; Troponin I Reference Interval for [employer] LOCI: 99th Percentile= 0.00-0.045 ng/ml Risk Stratification: <= 0.10 ng/ml Decreased Risk for Adverse Clinical Events. 0.10-1.50 ng/ml Increased Risk for Adverse Clinical Events. Evaluation of additional criterion and/or repeat testing in 2-6 hours is suggested to rule out myocardial damage. >= 1.50 ng/ml Indicative of Myocardial Injury. Lab Order: COMPLETE COMPHRENSIVE METABOLI; 08/13/16 07:47 Test: GLUCOSE, FASTING; Value: 389; Range: 80-110; Abnormal: Above high normal; Units: MG/DL; Status: F Test: BLOOD UREA NITROGEN; Value: 29; Range: 7-18; Abnormal: High; Units: MG/DL; Status: F Test: CREATININE FOR GFR; Value: 1.76; Range: 0.55-1.02; Abnormal: High; Units: MG/DL; Status: F Test: GLOMERULAR FILTRATION RATE; Value: 30.7; Range: >45; Abnormal: Below low normal; Status: F Test: SODIUM LEVEL; Value: 138; Range: 136-145; Units: MEQ/L; Status: F Test: POTASSIUM SERUM; Value: 3.9; Range: 3.5-5.1; Units: MEQ/L; Status: F Test: CHLORIDE LEVEL; Value: 102; Range: 98-107; Units: MEQ/L; Status: F Test: CARBON DIOXIDE LEVEL; Value: 24; Range: 21-32; Units: MEQ/L; Status: F Test: ANION GAP; Value: 12; Range: 8-16; Units: MEQ/L; Status: F Test: CALCIUM LEVEL; Value: 8.7; Range: 8.8-10.2; Abnormal: Below low normal; Units: MG/DL; Status: F Test: AST/SGOT; Value: 7; Range: 15-37; Abnormal: Below low normal; Units: U/L; Status: F Test: ALT/SGPT; Value: 13; Range: 12-78; Units: U/L; Status: F Test: ALKALINE PHOSPHATASE; Value: 65; Range: 45-117; Units: U/L; Status: F Test: BILIRUBIN,TOTAL; Value: 0.4; Range: 0.2-1.0; Units: MG/DL; Status: F Test: TOTAL PROTEIN; Value: 6.8; Range: 6.4-8.2; Units: GM/DL; Status: F Test: ALBUMIN; Value: 3.0; Range: 3.2-5.2; Abnormal: Below low normal; Units: GM/DL; Status: F Test: ALBUMIN/GLOBULIN RATIO; Value: 0.79; Range: 1.00-1.93; Abnormal: Below low normal; Status: F Test Note: ; Units are mL/min/1.73 m2 Chronic Kidney Disease Staging per NKF: Stage I & II GFR >=60 Normal to Mildly Decreased Stage III GFR 30-59 Moderately Decreased Stage IV GFR 15-29 Severely Decreased Stage V GFR <15 Very Little GFR Left ESRD GFR <15 on SCALE BALANCER Lab Order: THYROID STIMULATING HORMONE; SPEC'M 08/13/16 07:47 Test: THYROID STIMULATING HORMONE; Value: 0.726; Range: 0.358-3.740; Units: uIU/ML; Status: F Lab Order: HEMOGLOBIN A1C; [facility]08/13/16:47 Test: HEMOGLOBIN A1c; Value: 6.9; Range: 4.5-6.2; Abnormal: Above high normal; Units: %; Status: F Test: ESTIMATED AVERAGE GLUCOSE; Value: 151; Range: 60-110; Abnormal: Above high normal; Units: MG/DL; Status: F Lab Order: MAGNESIUM LEVEL; [facility]08/13/16 07:47 Test: MAGNESIUM LEVEL; Value: 1.9; Range: 1.8-2.4; Units: MG/DL; Status: F Lab Order: CBC WITH DIFFERENTIAL; 08/13/16:47 Test: WHITE BLOOD COUNT; Value: 11.4; Range: 4.0-10.0; Abnormal: Above high normal; Units: K/mm3; Status: F Test: RED BLOOD COUNT; Value: 3.43; Range: 4.00-5.40; Abnormal: Below low normal; Units: M/mm3; Status: F Test: HEMOGLOBIN; Value: 10.0; Range: 12.0-16.0; Abnormal: Below low normal; Units: g/dl; Status: F Test: HEMATOCRIT; Value: 32.3; Range: 36.0-47.0; Abnormal: Below low normal; Units: %; Status: F Test: MEAN CORPUSCULAR VOLUME; Value: 94.1; Range: 80.0-96.0; Units: fl; Status: F Test: MEAN CORPUSCULAR HEMOGLOBIN; Value: 29.2; Range: 27.0-33.0; Units: pg; Status: F Test: MEAN CORPUSCULAR HGB CONC; Value: 31.1; Range: 32.0-36.5; Abnormal: Below low normal; Units: g/dl; Status: F Test: RED CELL DISTRIBUTION WIDTH; Value: 13.4; Range: 11.5-14.5; Units: %; Status: F Test: PLATELET COUNT, AUTOMATED; Value: 159; Range: 150-450; Units: k/mm3; Status: F Test: NEUTROPHILS %; Value: 92.4; Range: 36.0-66.0; Abnormal: Above high normal; Units: %; Status: F Test: LYMPH %; Value: 4.5; Range: 24.0-44.0; Abnormal: Below low normal; Units: %; Status: F Test: MONO %; Value: 2.2; Range: 0.0-5.0; Units: %; Status: F Test: EOS %; Value: 0.5; Range: 0.0-3.0; Units: %; Status: F Test: BASO %; Value: 0.0; Range: 0.0-1.0; Units: %; Status: F Test: LARGE UNSTAINED CELL %; Value: 0.3; Range: 0.0-4.0; Units: %; Status: F Test: NEUTROPHILS #; Value: 10.5; Range: 1.8-7.7; Abnormal: Above high normal; Units: K/mm3; Status: F Test: LYMPH #; Value: 0.5; Range: 1.5-4.5; Abnormal: Below low normal; Units: K/mm3; Status: F Test: MONO #; Value: 0.3; Range: 0.0-0.8; Units: K/mm3; Status: F Test: EOS #; Value: 0.1; Range: 0.0-0.50; Units: K/mm3; Status: F Test: BASO #; Value: 0.0; Range: 0.0-0.2; Units: K/mm3; Status: F Test: LARGE UNSTAINED CELL #; Value: 0.0; Range: 0.0-0.4; Units: K/mm3; Status: F Lab Order: CARDIAC RISK PROFILE; [facility] 08/13/16 07:47 Test: TRIGLYCERIDES LEVEL; Value: 29; Range: <150; Units: MG/DL; Status: F Test: CHOLESTEROL LEVEL; Value: 109; Range: <200; Units: MG/DL; Status: F Test: HDL CHOLESTEROL; Value: 75; Range: >40; Units: MG/DL; Status: F Test: LDL CHOLESTEROL; Value: 28.2; Range: <100; Units: MG/DL; Status: F Test: NON-HDL-C; Value: 34; Units: MG/DL; Status: F Test: CHOLESTEROL RISK RATIO; Value: 1.453; Range: <5; Status: F Lab Order: CARDIAC INJURY PROFILE; SPEC'M 08/13/16 07:47 Test: CPK CREATINE PHOSPHOKINASE; Value: 46; Range: 26-192; Units: U/L; Status: F Test: CK-MB VALUE MASS; Value: 1.4; Range: 0.0-3.6; Units: NG/ML; Status: F Test: MB/CK RELATIVE INDEX; Value: 3.04; Range: < OR =4; Status: F Test Note: ; DIAGNOSIS CRITERIA MMB ng/ml Relative Index (RI) NON-AMI < or = 5 N/A KERN ZONE > 5 < or = 4 AMI > 5 > 4 Lab Order: TROPONIN; SPEC'M 08/13/16 07:47 Test: TROPONIN I; Value: < 0.02; Range: < 0.10; Units: NG/ML; Status: F Test Note: ; Troponin I Reference Interval for [employer] LOCI: 99th Percentile= 0.00-0.045 ng/ml Risk Stratification: <= 0.10 ng/ml Decreased Risk for Adverse Clinical Events. 0.10-1.50 ng/ml Increased Risk for Adverse Clinical Events. Evaluation of additional criterion and/or repeat testing in 2-6 hours is suggested to rule out myocardial damage. >= 1.50 ng/ml Indicative of Myocardial Injury. 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; : 1950 Requested By: ITALIA Stereter; Order Number: [id number] Reading MD: Ani Wei; Measurements; Intervals [place]; Rate: 105 P: 52; TN: 155 QRS: -4; QRSD: 126 T: 34; QT: 350; QTc: 463; Interpretive Statements; SINUS TACHYCARDIA; RIGHT BUNDLE BRANCH BLOCK; NEW Right bundle branch block; 12/11/15; Electronically Signed On 08-12-2016 21:56:12 EST by Ani Wei; Radiology Order: Chest, 2 View (pa\\E\\lat) Test: Chest, 2 View (pa\\E\\lat) REASON FOR EXAMINATION: Chest Pain; CHEST X-RAY: TWO VIEWS.; ; HISTORY: Chest pain.; ; COMPARISON STUDY: December 11, 2015; ; FINDINGS: EKG monitoring electrodes and oxygen tubing overlie the chest. Heart; is not enlarged. The lungs are well inflated and clear. Pleural angles are; sharp. No significant bony abnormality is seen.; ; IMPRESSION:; ; No active disease.; ; ; Signed by; Kevan Bender MD 08/12/2016 03:06 P; Radiology Order: CT Chest Angio R/O PE Test: CT Chest Angio R/O PE REASON FOR EXAMINATION: Shortness of Breath;Chest Pain; CT pulmonary angiogram: With IV contrast.; ; History: Shortness of breath and chest pain.; ; Comparison studies: No comparison CT studies. Comparison is made with today's; chest x-ray.; ; Contrast dose: 75 cc's of Isovue 370 are administered intravenously.; ; CT technique: Helical scanning is acquired and overlapping 1.5 mm and contiguous; 3 mm axial images are reformatted. In addition, a 3-D work station is deployed; to generate thick slab maximum intensity projection images in sagittal and; coronal imaging projections.; ; CT pulmonary angiographic findings: There is good opacification of the pulmonary; arterial tree. There is no CT evidence of pulmonary embolism. Thoracic aorta is; normal in coarse, caliber and homogeneous in density. There is no evidence of; aneurysm or dissection. No hilar or mediastinal mass or adenopathy is observed.; No pleural effusion is seen. There is a mild pericardial effusion. No adrenal; lesion is seen. The visualized upper abdominal structures are unremarkable. A; prosthetic left shoulder joint is seen casting some spray artifact. The lung; gerber show no evidence of infiltrate or mass lesion. No bony destructive lesion; is appreciated.; ; Impression:; ; No CT evidence of pulmonary embolism. Small pericardial effusion noted.; Otherwise unremarkable CT pulmonary angiogram.; ; ; Signed by; Kevan Bender MD 08/12/2016 04:34 P; Outcome: 17:15 Decision to Hospitalize by Provider. br1 08/13 15:33 Patient left the ED. ld5 Signatures: Dispatcher [employer] EDMS Fernanda Arias, RN RN kpJose Raul Saldaña,RN RN rck Cheyenne Burden, RN RN [facility] Melania, Mojgan, Reg Reg Royal Hurtado RN RN mlb1 Petr Luna Brian, MD MD br1 Candelaria TelloRN RN ld5 Mathieu Anderson js11 Mariah DudleyRN RN [facility] gr2 Kristin Zambrano RN RN [facility] Kev Hoskins, ELINA CLIENT ACCOUNT SPECIALIST jrd Corrections: (The following items were deleted from the chart) 08/12 13:19 13:11 BP 146 / 62; Pulse 106bpm; Resp 20bpm; Spontaneous; Pulse Ox 93% RA; 102.06 kg mlb1 Reported; Height 5 ft. 4 in. Reported; BMI: 38.6; Pain 4/10; TEMP WILL NEED TO BE TAKEN; gr2 MTDD
--- NOTE | 2016-08-13 15:33 | EDDOCDS ---
Physician Documentation [facility] Name: Qiana Veloz Age: 66 yrs Sex: Female : 1950 Arrival Date: 08/12/2016 Time: 13:09 Bed Admit Hold Private MD: Royal Duran FPA Disposition: 08/12/16 17:15 Hospitalization ordered by Rod Warren for Inpatient Admission. Preliminary diagnosis are Chronic obstructive pulmonary disease with (acute) exacerbation, Pericardial effusion (noninflammatory), Abnormal electrocardiogram [ECG] [EKG], Chest pain, unspecified. - Bed requested for PCU. - Status is Inpatient Admission. ld5 - Condition is Stable. - Problem is new. - Symptoms are unchanged. Historical: - Allergies: Codeine Sulfate; PENICILLINS; - Home Meds: 1. pregabalin 50 mg Oral cap twice a day 2. magnesium oxide 500 mg Oral cap daily 3. folic acid 1 mg Oral tab 1 tab once daily 4. losartan 100 mg oral tab once daily 5. atorvastatin 10 mg oral tab 1 tab once daily 6. ferrous sulfate 325 mg (65 mg iron) Oral tab daily 7. amlodipine 5 mg Oral tab 1 tab once daily 8. citalopram 20 mg Oral tab 1 tab once daily 9. pioglitazone 30 mg oral tab 1 tab once daily 10. Januvia 100 mg oral tab 1 tab once daily 11. rabeprazole 20 mg oral TbEC 1 tab once daily 12. glimepiride 4 mg Oral tab 1 tab once daily 13. rizatriptan 10 mg oral tab 1 tablet at onset of KHANNA, may repeat in 2 hours 14. Vitamin B-6 200 mg Oral tab daily - PMHx: COPD; Diabetes - NIDDM: controlled; Diabetic Neuropathy; Hypercholesterolemia; Hypertension; polymyalgia rheumatica; - PSHx: Shoulder Arthroplasty, Left; - Social history: Smoking status: Patient states former smoker of tobacco. No barriers to communication noted, The patient speaks fluent Ghanaian, Speaks appropriately for age. - Family history: Not pertinent. - : The pt / caregiver states he / she is not on anticoagulants. Home medication list is obtained from the patient. - Exposure Risk Screening:: None identified. Vital Signs: 08/12 13:11 BP 146 / 62; Pulse 106; Resp 32 S; Pulse Ox 93% on R/A; Weight 102.06 kg / 225 lbs (R); mlb1 Height 5 ft. 4 in. (162.56 cm) (R); Pain 4/10; 13:46 BP 131 / 90 (auto/); cjh 13:50 Pulse 102 MON; Pulse Ox 96% ; cjh 13:53 Pulse 102 MON; Pulse Ox 93% ; cjh 13:53 BP 131 / 84 (auto/); cjh 13:54 Pulse 102 MON; Pulse Ox 92% ; cjh 13:54 BP 142 / 70 (auto/); Temp 100.4(O); cjh 14:01 Pulse 100 MON; Pulse Ox 93% ; cjh 14:01 BP 128 / 67 (auto/); cjh 14:09 BP 126 / 64 (auto/); jmk 14:09 Pulse 100 MON; Pulse Ox 96% ; jmk 14:23 Pulse 94 MON; Pulse Ox 99% ; jmk 14:24 BP 117 / 67 (auto/); jmk 14:39 BP 128 / 75 (auto/); jmk 14:39 Pulse 94 MON; Pulse Ox 98% ; jmk 14:53 Pulse 100 MON; Pulse Ox 94% ; jmk 14:54 BP 152 / 68 (auto/); jmk 15:09 BP 145 / 69 (auto/); jmk 15:09 Pulse 96 MON; Pulse Ox 98% ; jmk 15:38 Pulse 92 MON; Pulse Ox 98% ; jmk 15:39 BP 130 / 65 (auto/); jmk 15:53 Pulse 88 MON; Pulse Ox 98% ; jmk 15:54 BP 120 / 58 (auto/); jmk 16:08 Pulse 92 MON; Pulse Ox 100% ; jmk 16:09 BP 125 / 61 (auto/); jmk 16:23 Pulse 108 MON; Pulse Ox 99% ; jmk 16:24 BP 129 / 66 (auto/); jmk 16:38 Pulse 104 MON; Pulse Ox 97% ; jmk 16:39 BP 124 / 79 (auto/); jmk 19:13 Pulse 96 MON; Pulse Ox 95% ; mlc 13:11 Body Mass Index 38.62 (102.06 kg, 162.56 cm) mlb1 13:11 TEMP WILL NEED TO BE TAKEN mlb1 MDM: 13:22 ECG WITH READING ER PHYS+CARDIAG ordered. EDMS 13:33 Oral Temp ordered. br1 13:33 Cloth Doffer/Pulse Ox/q 30 min VS ordered. br1 13:33 IV Saline Lock ordered. br1 13:33 Rhythm Strip to chart ordered. br1 13:33 Undress patient appropriately for examination ordered. br1 13:34 Basic Metabolic Profile Ordered. EDMS 13:34 CBC with Diff Ordered. EDMS 13:34 Cardiac Injury Profile Ordered. EDMS 13:34 Troponin Ordered. EDMS 13:34 Oxygen at 2L/min via NC ordered. br1 13:35 Aspirin 324 mg PO once ordered. br1 13:35 Nitrostat 0.4 mg Sublingual every 5 minutes; hold if SBP<90mmHg.Document Pain Score br1 Response to Each Dose x3 ordered. 13:35 Chest, 2 View (pa\E\lat) Ordered. EDMS 13:35 BNP Ordered. EDMS 13:58 -Blood Culture (Adults Only), peripheral from different site, or from device/port/PICC br1 etc. if present ordered. 13:59 Lactic Acid (Kern tube on ice) Ordered. EDMS 13:59 -Blood Culture Ordered. EDMS 14:03 -Blood Culture (Adults Only), peripheral from different site, or from device/port/PICC lbd etc. if present complete. 14:06 BLOOD CULTURES Ordered. EDMS 14:40 Basic Metabolic Profile Reviewed. br1 14:40 CBC with Diff Reviewed. br1 14:40 BNP Reviewed. br1 14:40 Cardiac Injury Profile Reviewed. br1 14:40 Troponin Reviewed. br1 14:40 Lactic Acid (Kern tube on ice) Reviewed. br1 14:41 CT Chest Angio R/O PE Ordered. EDMS 15:24 Albuterol-Ipratropium 1 neb Nebulizer every 20 minutes x3 ordered. br1 15:25 Call Respiratory ordered. br1 15:25 Call Respiratory complete. rs6 15:52 Chest, 2 View (pa\E\lat) Reviewed. br1 15:52 CT Chest Angio R/O PE Reviewed. br1 15:54 Solu-MEDROL 125 mg IVP once ordered. br1 16:42 morphine 4 mg IVP once ordered. br1 16:42 Ondansetron 4 mg IVP once ordered. br1 16:50 Financial registration complete. zo 16:51 [facility] Payment Agreement was scanned into [employer] and attached to record. zo 17:10 BED REQUEST+ADM ordered. EDMS 18:27 Admission / Observation Status ordered. EDMS 18:27 ECHOCARD,DOPPLER/COLOR FLOW ordered. EDMS 18:27 COPD DIET ordered. EDMS 18:28 ARTERIAL BLOOD GAS Ordered. EDMS 18:28 CARDIAC INJURY PROFILE Ordered. EDMS 18:28 TROPONIN Ordered. EDMS 18:28 RESPIRATORY PANEL Ordered. EDMS 18:28 SPUTUM CULTURE AND GRAM STAIN Ordered. EDMS 02 06:45 NPO FOR TEST/PROCEDURE ordered. EDMS 06:46 Upper G.I. w-air-small bowel Ordered. EDMS 06:48 COMPLETE COMPHRENSIVE METABOLI Ordered. EDMS 06:48 THYROID STIMULATING HORMONE Ordered. EDMS 06:48 HEMOGLOBIN A1C Ordered. EDMS 06:48 MAGNESIUM LEVEL Ordered. EDMS 06:48 CBC WITH DIFFERENTIAL Ordered. EDMS 06:48 CARDIAC RISK PROFILE Ordered. EDMS 06:53 ELECTROCARDIOGRAM ADULT ordered. EDMS 07:43 CARDIAC INJURY PROFILE Ordered. EDMS 07:43 TROPONIN Ordered. EDMS 09:01 T-Sheet-- Draft Copy was scanned into [employer] and attached to record. gb 14:48 REGULAR DIET ordered. EDMS Administered Medications: 08/12 13:46 Drug: Aspirin 324 mg [aspirin 81 mg chewable tablet (4 tabs)] Route: PO; [facility] 13:47 Drug: Nitrostat 0.4 mg [Nitrostat 0.4 mg sublingual tablet (1 tabs)] Route: Sublingual; [facility] 13:54 Drug: Nitrostat 0.4 mg [Nitrostat 0.4 mg sublingual tablet (1 tabs)] Route: Sublingual; [facility] 13:55 Follow up: Response: No significant change.; 04/13 [facility] 14:03 Drug: Nitrostat 0.4 mg [Nitrostat 0.4 mg sublingual tablet (1 tabs)] Route: Sublingual; [facility] 14:04 Follow up: Response: No significant change.; 04/13 [facility] 15:50 Drug: Albuterol-Ipratropium 1 neb [ipratropium-albuterol 0.5 mg-3 mg(2.5 mg base)/3 mL js11 nebulization soln (1 neb)] Route: Nebulizer; 16:10 Drug: Albuterol-Ipratropium 1 neb [ipratropium-albuterol 0.5 mg-3 mg(2.5 mg base)/3 mL js11 nebulization soln (1 neb)] Route: Nebulizer; 16:18 Drug: Albuterol-Ipratropium 1 neb [ipratropium-albuterol 0.5 mg-3 mg(2.5 mg base)/3 mL js11 nebulization soln (1 neb)] Route: Nebulizer; 16:32 Drug: Solu-MEDROL 125 mg [Solu-Medrol 500 mg intravenous solution (125 mg)] Route: IVP; [facility] Site: left antecubital; 16:52 Drug: morphine 4 mg Route: IVP; Site: left antecubital; [facility] 16:52 Drug: Ondansetron 4 mg Route: IVP; Site: left antecubital; [facility] Signatures: Dispatcher [employer] EDMS Qiana Marrero, Arboreal Scientist Unit lbd Mojgan Velázquez, Reg Reg Royal Greenfield RN RN mlb1 Petr Luna Brian, MD MD br1 Candelaria TelloRN RN ld5 aMriah DudleyRN RN caitlin Amaya Greco RN RN sls2 Rosalia Baez, ELINA PRESS TENDER rs6 Jose Raul Acevedo RN k Mathieu Anderson js11 The chart was reviewed and I authenticate all verbal orders and agree with the evaluation and treatment provided.Corrections: (The following items were deleted from the chart) 08/13 07:44 08/12 19:32 CARDIAC INJURY PROFILE ordered. EDMS EDMS 08/13 07:44 08/12 19:32 TROPONIN ordered. EDMS EDMS Attachments: 16:51 [facility] Payment Agreement zo 08/13 09:01 T-Sheet-- Draft Copy gb MTDD
--- NOTE | 2016-08-13 17:09 | ECGEPIP ---
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
--- NOTE | 2016-08-13 18:36 | REP ---
UPPER GI AIR CONTRAST AND SMALL BOWEL FOLLOW-THROUGH: The procedure was performed under the direct supervision of Dr. Bender. The images were reviewed with Dr. Bender. The silver recovery operator film shows no organomegaly or pathological masses. The intestinal gas pattern is nonspecific. There is residual contrast in the bladder from prior CT IV contrast. Liquid barium and gas producing granules were given in the erect position as well as liquid barium in the prone oblique position in order to perform a double contrast upper GI examination. Additionally liquid barium was given at the end of the examination in order to perform a small bowel follow-through. The oral and pharyngeal stages of deglutition are unremarkable. Esophageal transport is prompt and efficient. In the upper third of the esophagus there is a 7 mm plaque like polyp. Recommend endoscopy for further evaluation. There is a hiatal hernia present. There is gastroesophageal reflux demonstrated to above the level of the katie. Within the body of the stomach there is a small polyp identified. The remainder of the stomach is unremarkable. The duodenal short are normally outlined. The mucosal folds are smooth and regular. There is no duodenitis, pancreatitis, peptic ulcer disease, or neoplasm. The visualized portion of the proximal small bowel appears normal in course and caliber. The barium column was followed through the small bowel to the level of the terminal ileum. Small bowel transit time is approximately 5 hours. During fluoroscopy gentle palpation shows all loops are freely movable and pliable. There are no fixed or angulated loops. The small bowel mucosal pattern is normal in course and caliber. There is no transition to suggest a partial small bowel obstruction. Within the terminal ileum there are a few tiny diverticula identified. The terminal ileum is otherwise unremarkable. IMPRESSION: 1. In the upper third of the esophagus there is a 7 mm plaque like polyp. Within the body of the stomach. There is also a small polyp. Recommend endoscopy for further evaluation. 2. There is a hiatal hernia present. There is gastroesophageal reflux demonstrated to above the level of the katie. 3. Within the terminal ileum there are a few tiny diverticula, otherwise the terminal ileum and small bowel is unremarkable. 6 minutes and 51 seconds of fluoroscopy time was utilized for this procedure. Reviewed by DEDRA Knutson 08/14/2016 03:41 PEdited and Signed by Kevan Bender MD 08/14/2016 04:26 P
[2016-08-13] MEDS ORDERED: GLUCAGON FOR INJ 1 MG VIAL (J1610) SC PRN (20:30)
[2016-08-13] MEDS ORDERED: SLF 3 ML SYR IV PRN (20:30)
[2016-08-13] MEDS ORDERED: GLUCOSE 4 GM CHEW TABLET PO PRN (20:30)
[2016-08-13] MEDS ORDERED: DEXTROSE 50% 50 ML SYRINGE IV PRN (20:30)
[2016-08-13] MEDS: SLF 3 ML SYR IV SCH (22:00)
[2016-08-13] MEDS: PREGABALIN 50 MG CAP (LYRICA) PO SCH (22:06)
[2016-08-13] MEDS: VITAMIN E 400 INTERNATIONAL UNITS CAP PO SCH (22:06)
[2016-08-13] MEDS: OMEGA-3 1050MG CAPSULE PO SCH (22:06)
[2016-08-13] MEDS: VITAMIN B COMPLEX/VIT C CAP PO SCH (22:07)
[2016-08-13] MEDS: CitaloPRAM (CeleXA) 20 MG TAB PO SCH (22:07)
[2016-08-13] MEDS: VITAMIN D 1,000 INTERNATIONAL UNITS TABLET PO SCH (22:07)
[2016-08-13] MEDS: HumaLOG INSULIN (NovoLOG) PER UNIT SC SCH (22:07)
[2016-08-14] MEDS: IPRATROPIUM 0.5MG/ALBUTEROL 2.5MG INH SOL UD 3ML (DUONEB)(J7620) NEB SCH ×6 (04:14→23:31)
[2016-08-14 05:23] VITALS: BP 125/62
[2016-08-14] MEDS: SUCRALFATE SUSP 1GM/10ML UD PO SCH ×3 (05:52→17:49)
[2016-08-14] MEDS: SLF 3 ML SYR IV SCH ×3 (06:00→21:35)
[2016-08-14 07:06] LABS: MEAN CORPUSCULAR HEMOGLOBIN 29.7 pg (27.0-33.0); MEAN CORPUSCULAR HGB CONC 30.9 g/dl (32.0-36.5); MEAN CORPUSCULAR VOLUME 96.2 fl (80.0-96.0); RED CELL DISTRIBUTION WIDTH 13.6 % (11.5-14.5); WHITE BLOOD COUNT 15.3 K/mm3 (4.0-10.0)
[2016-08-14] MEDS: NS 1,000 ML IV SCH ×2 (07:07→17:50)
[2016-08-14 07:24] LABS: CALCIUM LEVEL 8.4 MG/DL (8.8-10.2); CREATININE FOR GFR 2.08 MG/DL (0.55-1.02); GLOMERULAR FILTRATION RATE 25.3 (>45); POTASSIUM SERUM 4.5 MEQ/L (3.5-5.1)
[2016-08-14 08:00] VITALS: BP 128/58
[2016-08-14] MEDS: FOLIC ACID 1 MG TAB PO SCH (08:49)
[2016-08-14] MEDS: PREGABALIN 50 MG CAP (LYRICA) PO SCH ×2 (08:49→21:34)
[2016-08-14] MEDS: amLODIPine 5 MG TAB PO SCH ×2 (08:50→21:35)
[2016-08-14] MEDS: ATORVASTATIN 10 MG TAB PO SCH (08:50)
[2016-08-14] MEDS: FERROUS SULFATE 325MG TAB PO SCH (08:50)
[2016-08-14] MEDS: methylPREDNISolone INJ 125 MG/2 ML VIAL (J2930) IV SCH (08:50)
[2016-08-14] MEDS: PANTOPRAZOLE 40MG INJ (PROTONIX) (C9113) IV SCH (08:50)
[2016-08-14] MEDS: LOSARTAN 50 MG TAB PO SCH (08:50)
[2016-08-14] MEDS: DOXYCYCLINE HYCLATE 100 MG in D5W MINI-BAG PLUS 100 ML IV SCH (08:51)
[2016-08-14] MEDS: HumaLOG INSULIN (NovoLOG) PER UNIT SC SCH ×4 (08:51→21:34)
[2016-08-14 09:40] VITALS: BP 144/66
[2016-08-14] MEDS ORDERED: LEVEMIR (INSULIN DETEMIR) 1 UNITS/0.01ML SC ONE (10:45)
[2016-08-14 12:00] VITALS: BP 138/65
--- NOTE | 2016-08-14 12:14 | IPN ---
DATE: 08/14/2016 The patient is seen and examined at the bedside. The chart has been reviewed. The patient states her shortness of breath is significantly improved. She is able to ambulate much more comfortably. She denies any cough, fever or chills. She continues to have epigastric discomfort, especially one or two hours after her meals. Upper GI series yesterday confirms hiatal hernia and severe reflux, finding of a stomach polyp with recommendations for endoscopy. Vitals this morning, temperature 96.6, pulse 107, respiratory rate 22, blood pressure 128/58, 96% on 4 liters nasal cannula. Generally, the patient is awake, alert and oriented times three. Able to converse in full sentences. Lungs are clear to auscultation. No wheezing, rales or rhonchi noted. Abdomen soft, nontender, nondistended, obese. Extremities: No cyanosis or clubbing. Trace edema. White count 15.3, hemoglobin 9, hematocrit 29, platelet count 168. Sodium 136, potassium 4.5, chloride 100, bicarbonate 26, BUN 49, creatinine 2.08, glucose 446. Laboratory data had been reviewed. Imaging studies have been reviewed. ASSESSMENT AND PLAN: This is a 66-year-old female with history of type 2 diabetes, hypertension, obesity, chronic obstructive pulmonary disease (COPD), and PMR who presents to the emergency room with acute onset of epigastric substernal abdominal and chest pain described as aching, accompanied with shortness of breath and wheezing. No fever or chills. CT of chest shows no pulmonary embolism (PE) or pneumonia with small pericardial effusion. Troponin is unremarkable. The patient underwent upper GI series which showed hiatal hernia and reflux disease and a stomach polyp. IMPRESSIONS: 1. Atypical epigastric abdominal and chest pain. Upper GI series shows reflux, hiatal hernia and a stomach polyp. At this time, the patient may be transferred to medical-surgical floor. Patient complains of chest pain, most likely GI in origin. She has been started on Carafate and proton pump inhibitor (PPI) with possible endoscopy for stomach polyp or outpatient followup with Dr. Martinez if he is unavailable. 2. Chronic obstructive pulmonary disease exacerbation. The patient's lungs are clear today. Therefore, will decrease Solu-Medrol to every 12 hours. Continue NEBS treatment. Oral doxycycline, inhaled steroids, supplemental oxygen if needed for saturations less than 88%. 3. Type 2 diabetes with steroid induced hyperglycemia. Decrease steroids rapidly for taper as well as start on Levemir insulin 10 twice a day. Hold for glucose less than 180. 4. PMR. Patient has been on steroids for two years which has recently stopped. 5. Deep vein thrombosis prophylaxis with Lovenox. DISPOSITION: If stable, may discharge in the morning on oral prednisone taper. MTDD
[2016-08-14] MEDS: **hydrALAZINE** 10 MG TAB PO SCH ×2 (12:50→17:51)
[2016-08-14] MEDS: ENOXAPARIN 30 MG/0.3 ML SYR (J1650) SC SCH (13:51)
[2016-08-14] MEDS ORDERED: HumaLOG INSULIN (NovoLOG) PER UNIT SC ONE ×2 (14:00→18:00)
[2016-08-14] MEDS: ACETAMINOPHEN TAB 650MG DOSE (2X325MG) PO PRN (14:26)
[2016-08-14 20:10] VITALS: BP 111/56
[2016-08-14] MEDS ORDERED: LEVEMIR (INSULIN DETEMIR) 1 UNITS/0.01ML SC SCH (21:00)
[2016-08-14] MEDS ORDERED: methylPREDNISolone INJ 125 MG/2 ML VIAL (J2930) IV SCH (21:00)
[2016-08-14] MEDS: DOXYCYCLINE HYCLATE 100 MG TAB PO SCH (21:34)
[2016-08-14] MEDS: VITAMIN E 400 INTERNATIONAL UNITS CAP PO SCH (21:34)
[2016-08-14] MEDS: OMEGA-3 1050MG CAPSULE PO SCH (21:34)
[2016-08-14] MEDS: CitaloPRAM (CeleXA) 20 MG TAB PO SCH (21:34)
[2016-08-14] MEDS: VITAMIN D 1,000 INTERNATIONAL UNITS TABLET PO SCH (21:34)
[2016-08-14] MEDS: VITAMIN B COMPLEX/VIT C CAP PO SCH (21:35)
[2016-08-14 23:31] LABS: CALCIUM LEVEL 8.4 MG/DL (8.8-10.2); GLOMERULAR FILTRATION RATE 26.5 (>45)
[2016-08-15] MEDS: SUCRALFATE SUSP 1GM/10ML UD PO SCH ×4 (00:43→17:34)
[2016-08-15] MEDS ORDERED: HumaLOG INSULIN (NovoLOG) PER UNIT SC ONE (01:45)
[2016-08-15] MEDS: IPRATROPIUM 0.5MG/ALBUTEROL 2.5MG INH SOL UD 3ML (DUONEB)(J7620) NEB SCH ×6 (03:13→23:17)
[2016-08-15] MEDS: NS 1,000 ML IV SCH (03:45)
[2016-08-15 06:00] VITALS: BP 121/57
[2016-08-15] MEDS: SLF 3 ML SYR IV SCH ×3 (06:12→22:00)
[2016-08-15 06:41] LABS: MEAN CORPUSCULAR HEMOGLOBIN 29.6 pg (27.0-33.0); MEAN CORPUSCULAR HGB CONC 30.9 g/dl (32.0-36.5); MEAN CORPUSCULAR VOLUME 95.6 fl (80.0-96.0); RED CELL DISTRIBUTION WIDTH 13.7 % (11.5-14.5); WHITE BLOOD COUNT 11.8 K/mm3 (4.0-10.0)
[2016-08-15 06:54] LABS: CREATININE FOR GFR 1.76 MG/DL (0.55-1.02); GLOMERULAR FILTRATION RATE 30.7 (>45); POTASSIUM SERUM 4.3 MEQ/L (3.5-5.1)
[2016-08-15] MEDS: **hydrALAZINE** 10 MG TAB PO SCH ×4 (08:11→17:26)
[2016-08-15 08:19] VITALS: BP 124/84
[2016-08-15] MEDS: HumaLOG INSULIN (NovoLOG) PER UNIT SC SCH ×4 (08:21→21:22)
[2016-08-15] MEDS: PREGABALIN 50 MG CAP (LYRICA) PO SCH ×2 (08:21→21:21)
[2016-08-15] MEDS ORDERED: predniSONE 20 MG TAB PO SCH (09:00)
[2016-08-15] MEDS: ATORVASTATIN 10 MG TAB PO SCH (09:35)
[2016-08-15] MEDS: DOXYCYCLINE HYCLATE 100 MG TAB PO SCH ×2 (09:35→21:21)
[2016-08-15] MEDS: ENOXAPARIN 30 MG/0.3 ML SYR (J1650) SC SCH (09:36)
[2016-08-15] MEDS: amLODIPine 5 MG TAB PO SCH ×2 (09:36→21:21)
[2016-08-15] MEDS: FOLIC ACID 1 MG TAB PO SCH (09:36)
[2016-08-15] MEDS: PANTOPRAZOLE 40MG INJ (PROTONIX) (C9113) IV SCH (09:36)
[2016-08-15] MEDS: FERROUS SULFATE 325MG TAB PO SCH (09:36)
[2016-08-15] MEDS: methylPREDNISolone INJ 125 MG/2 ML VIAL (J2930) IV SCH ×3 (09:37→21:21)
[2016-08-15] MEDS: LEVEMIR (INSULIN DETEMIR) 1 UNITS/0.01ML SC SCH ×2 (09:37→21:22)
--- NOTE | 2016-08-15 11:15 | REP ---
AP PORTABLE CHEST: 08/15/2016 at 09:37 AM. Comparison: CT angiogram and chest x-ray 08/12/2016, chest x-ray 12/11/2015. Clinical history: Dyspnea. Findings: The lung gerber are well inflated. There is underlying interstitial fibrotic change. There is some venous hypertension now evident with increased vascular congestion. Basilar fibrotic changes are noted. Some patchy atelectasis or infiltrate at the left base difficult to exclude on this portable chest. The right base showed no definite infiltrate. CP angle on the right was clearly defined. The heart size is enlarged. The aorta is mildly tortuous. Airway is intact. There is a left total shoulder arthroplasty. Impression: 1. Cardiomegaly with pulmonary venous hypertension. No meghana edema. 2. Some basilar atelectasis or infiltrate may be present on the left, small left effusion difficult to exclude. Signed by Michael Ferrell MD 08/15/2016 07:32 P
--- NOTE | 2016-08-15 11:30 | ECHO ---
DATE OF STUDY: 08/14/2016 REFERRING PHYSICIAN: Dr. Julia Warren INDICATION: Dyspnea. HEIGHT: 163 cm WEIGHT: 102 kilograms MEASUREMENTS: Ventricular septum: 1.01 cm Posterior wall: 1.04 cm Left ventricle diastole: 5.1 cm Left atrium: 3.8 cm LVOT: 1.9 cm Aortic root: 3.5 cm Inferior vena cava: 2.0 cm DOPPLER MEASUREMENTS: Aortic valve velocity: 202 cm/s LVOT velocity: 126 cm/s LVOT VTI: 28.4 cm Mitral E velocity: 114 cm/s Mitral A velocity: 135 cm/s Mitral deceleration time could not be determined due to effusion at 103 beats per minute. Mild tricuspid regurgitation. Estimated right ventricle systolic pressure: 33 mmHg assuming a right atrial pressure of at least 5 mmHg MITRAL ANNULAR TISSUE DOPPLER: E prime septal: 6.0 cm/s E prime lateral: 7.1 cm/s DESCRIPTION: Rhythm was sinus tachycardia. This was a moderately technically difficult echocardiogram. No pericardial effusion. This was a 2D, M-mode, color flow Doppler, and pulse wave Doppler examination and included mitral annular tissue Doppler. CONCLUSIONS: 1. Normal left ventricle size and wall thickness. Normal left ventricle (LV) wall motion and wall thickening. Left ventricular ejection fraction (LVEF) 70% by visual estimate. Normal left ventricle (LV) systolic function. Grade 1 LV diastolic dysfunction (relaxation filling pattern). 2. Suggestive of mild elevation of estimated right ventricular systolic pressure. 3. Mild mitral annular calcification. No mitral regurgitation. 4. Mild left atrial dilatation. 5. Moderately technically difficult echocardiogram.
[2016-08-15] MEDS: ACETAMINOPHEN TAB 650MG DOSE (2X325MG) PO PRN (13:48)
[2016-08-15 13:50] VITALS: BP 132/60
[2016-08-15 14:18] VITALS: BP 137/64
--- NOTE | 2016-08-15 14:49 | IPN ---
DATE: 08/15/2016 Patient is seen and examined at the bedside. Chart has been reviewed. Since discontinuation of intravenous Solu-Medrol, patient is experiencing increasing chest tightness with increasing wheezing and limitation of ambulation, desaturation to 79% on room air. She currently denies any diaphoresis, nausea, vomiting, epigastric pain. No fever or chills. Temperature 97.9, pulse 84, respiratory rate 18, blood pressure 124/84, 90% on four liters nasal cannula. Generally, awake, alert, oriented times three, answering questions appropriately. Lungs diminished breath sounds, prolonged expiration, expiratory wheezing bilaterally, worse than yesterday. Heart S1, S2, sinus rhythm. Abdomen is obese, soft, nontender, nondistended. Extremities trace edema. White count 11, hemoglobin 9, hematocrit 29, platelet count 174, sodium 141, potassium 4.2, chloride 107, bicarbonate 25, BUN 56, creatinine 1.76, glucose 395, 453, 436, peak glucose of 526 yesterday. ASSESSMENT AND PLAN: This is a 66-year-old female who has history of type 2 diabetes, hypertension, obesity, chronic obstructive pulmonary disease (COPD), and polymyalgia rheumatica who presented to emergency room (ER) with acute onset of epigastric substernal chest pain and abdominal pain described as achy with shortness of breath and wheezing, no fever or chills. CT chest shows no pulmonary embolus (PE) or pneumonia with small pericardial effusion. Troponin unremarkable. Patient underwent upper gastrointestinal (GI) series which showed hiatal hernia, reflux disease, and a stomach polyp. IMPRESSION: 1. Hiatal hernia and reflux causing atypical chest pain. Patient is currently on Carafate and Protonix. Outpatient followup with Dr. Martinez for the stomach polyp. 2. Chronic obstructive pulmonary disease (COPD) exacerbation. Patient is adamant about being released on Wednesday, she is afraid to lose her job and needs to work on Wednesday. We had decided to change her over to oral prednisone yesterday due to clear lungs. This morning, patient had decompensated chronic obstructive pulmonary disease (COPD) with increasing wheezing, decreased entry, and inability to ambulate without significant desaturation. Will resume Solu-Medrol 50 intravenous (IV) every 6 hours for now. Continue with oral doxycycline. Supplemental oxygen to keep saturations above 88%. 3. Type 2 diabetes with steroid induced hyperglycemia. We have attempted to taper down the Solu-Medrol to oral prednisone but with worsening respiratory wheezing. Therefore, patient has been given Levemir insulin for better glycemic control. Her A1c level is 6.9. 4. Polymyalgia rheumatica (PMR). Has been on steroids for 2 years, has recently stopped. 5. Deep venous thrombosis (DVT) prophylaxis with Lovenox. 6. Acute hypoxic respiratory failure secondary to chronic obstructive pulmonary disease (COPD) currently requiring oxygen, saturation dipped down to 79% on room air. DISPOSITION: Patient has had a decompensation in her chronic obstructive pulmonary disease (COPD) status and may not be stable to be discharged on Wednesday, however patient is adamant about going back to work on Wednesday. MTDD
--- NOTE | 2016-08-15 16:34 | EDDOCDS ---
Nurse's Notes [facility] Name: Qiana Morales Age: 66 yrs Sex: Female : 1950 Arrival Date: 08/12/2016 Time: 13:09 Bed Admit Hold Private MD: Royal Duran FPA Diagnosis: Chronic obstructive pulmonary disease with (acute) exacerbation;Pericardial effusion (noninflammatory);Abnormal electrocardiogram [ECG] [EKG];Chest pain, unspecified Presentation: 08/12 13:14 Presenting complaint: Patient states: Chest pain and SOB began this am. Adult Sepsis mlb1 Screening: The patient does not have new or worsening altered mentation. Patient's respiratory rate is less than 22. Systolic blood pressure is greater than 100. Patient has a qSOFA score of 0- Negative Sepsis Screen. Suicide/Homicide risk assessment- the patient denies having any suicidal and/or homicidal ideations and does not present with any other emotional, behavioral or mental health complaints. Status: Patient is not a general service officer or dependent. Transition of care: patient was not received from another setting of care. 13:14 Acuity: GARIMA Level 2 mlb1 13:14 Method Of Arrival: Walkin/Carried/Asstd mlb1 13:19 Adult Sepsis Screening: Patient has a respiratory rate of greater than or equal to 22 mlb1 (1 point). Triage Assessment: 13:19 General: Appears distressed, obese, Behavior is anxious, cooperative. Pain: Location: mlb1 mid-sternal area Pain currently is 10 out of 10 on a pain scale. Respiratory: Onset: The symptoms/episode began/occurred today, Airway is patent Respiratory effort is labored. Historical: - Allergies: Codeine Sulfate; PENICILLINS; - Home Meds: 1. pregabalin 50 mg Oral cap twice a day 2. magnesium oxide 500 mg Oral cap daily 3. folic acid 1 mg Oral tab 1 tab once daily 4. losartan 100 mg oral tab once daily 5. atorvastatin 10 mg oral tab 1 tab once daily 6. ferrous sulfate 325 mg (65 mg iron) Oral tab daily 7. amlodipine 5 mg Oral tab 1 tab once daily 8. citalopram 20 mg Oral tab 1 tab once daily 9. pioglitazone 30 mg oral tab 1 tab once daily 10. Januvia 100 mg oral tab 1 tab once daily 11. rabeprazole 20 mg oral TbEC 1 tab once daily 12. glimepiride 4 mg Oral tab 1 tab once daily 13. rizatriptan 10 mg oral tab 1 tablet at onset of KHANNA, may repeat in 2 hours 14. Vitamin B-6 200 mg Oral tab daily - PMHx: COPD; Diabetes - NIDDM: controlled; Diabetic Neuropathy; Hypercholesterolemia; Hypertension; polymyalgia rheumatica; - PSHx: Shoulder Arthroplasty, Left; - Social history: Smoking status: Patient states former smoker of tobacco. No barriers to communication noted, The patient speaks fluent [place], Speaks appropriately for age. - Family history: Not pertinent. - : The pt / caregiver states he / she is not on anticoagulants. Home medication list is obtained from the patient. - Exposure Risk Screening:: None identified. Screenin:01 Screening information is obtained from the patient. Fall risk: No risks identified. [facility] Assistance ADL's: requires no assistance with activities of daily living. Abuse/DV Screen: The patient / caregiver reports he/she is: not in a situation that causes fear, pain or injury. Nutritional screening: No deficits noted. Advance Directives: There is no active DNR order. home support is adequate. Assessment: 14:05 General: Appears distressed, ill, Behavior is cooperative. Pain: Location: chest Pain [facility] currently is 10 out of 10 on a pain scale. Neurological: Level of Consciousness is awake, alert, Oriented to person, place, time. Cardiovascular: Rhythm is sinus tachycardia Chest pain is described as Pain is 10 out of 10 on a pain scale. Respiratory: Airway is patent Respiratory effort is labored, Respiratory pattern is tachypnea Breath sounds are diminished bilaterally. Derm: Skin is clammy, Skin is normal, Skin temperature is cool. 14:07 General: Appears uncomfortable. tachypneic. resp shallow with poor insp effort. breath k sounds obscured by body habitus. Indicates sternal discomfort that is increased with palpation of sternal margin. Breath sounds are equal bilaterally and equally diminished. reports no change in discomfort with NTG. bilateral leg edema , pitting to both lower legs.. 15:12 General: Appears tachypneic and intolerant of activity when ambulated short distance to [facility] bathroom. reprots + pain which impeded ability to take full breath. readily recovers from exertion of activity.. 16:24 General: Appears states slightly less chest discomfort 9/10. continues tachypneic with k resting rate of 26. No cough appreciated. end expiratory wheeze noted... 16:53 General: Appears medicated as per order for pain management. jmk 17:07 General: Appears states " maybe a little" less pain.. jmk 18:20 General: Appears states pain has decreased to 6/10. resting with eyes closed . pursed k lip breathing. poor inspiratory effort. states typically has 8/10 discomfort on daily basis.. 19:28 General: report given to NELA [place]. pt moved to room 21. pt able to stand and pivot to [facility] bed. . Vital Signs: 13:11 BP 146 / 62; Pulse 106; Resp 32 S; Pulse Ox 93% on R/A; Weight 102.06 kg (R); Height 5 mlb1 ft. 4 in. (162.56 cm) (R); Pain 4/10; 13:46 BP 131 / 90 (auto/); cjh 13:50 Pulse 102 MON; Pulse Ox 96% ; cjh 13:53 Pulse 102 MON; Pulse Ox 93% ; cjh 13:53 BP 131 / 84 (auto/); cjh 13:54 Pulse 102 MON; Pulse Ox 92% ; cjh 13:54 BP 142 / 70 (auto/); Temp 100.4(O); cjh 14:01 Pulse 100 MON; Pulse Ox 93% ; cjh 14:01 BP 128 / 67 (auto/); cjh 14:09 BP 126 / 64 (auto/); jmk 14:09 Pulse 100 MON; Pulse Ox 96% ; jmk 14:23 Pulse 94 MON; Pulse Ox 99% ; jmk 14:24 BP 117 / 67 (auto/); jmk 14:39 BP 128 / 75 (auto/); jmk 14:39 Pulse 94 MON; Pulse Ox 98% ; jmk 14:53 Pulse 100 MON; Pulse Ox 94% ; jmk 14:54 BP 152 / 68 (auto/); jmk 15:09 BP 145 / 69 (auto/); jmk 15:09 Pulse 96 MON; Pulse Ox 98% ; jmk 15:38 Pulse 92 MON; Pulse Ox 98% ; jmk 15:39 BP 130 / 65 (auto/); jmk 15:53 Pulse 88 MON; Pulse Ox 98% ; jmk 15:54 BP 120 / 58 (auto/); jmk 16:08 Pulse 92 MON; Pulse Ox 100% ; jmk 16:09 BP 125 / 61 (auto/); jmk 16:23 Pulse 108 MON; Pulse Ox 99% ; jmk 16:24 BP 129 / 66 (auto/); jmk 16:38 Pulse 104 MON; Pulse Ox 97% ; jmk 16:39 BP 124 / 79 (auto/); jmk 19:13 Pulse 96 MON; Pulse Ox 95% ; mlc 13:11 Body Mass Index 38.62 (102.06 kg, 162.56 cm) mlb1 13:11 TEMP WILL NEED TO BE TAKEN mlb1 Vitals: 13:11 Log In Time: August 12, 2016 at 13:11. RN notified that patient meets Red Flag gr2 criteria. ED Course: 13:11 Patient visited by Pedrito Fragoso. gr2 13:11 Royal Duran is Private Physician. gr2 13:11 Patient moved to Waiting gr2 13:14 Patient visited by Pedrito Fragoso. gr2 13:14 Patient visited by Royal Hurtado, NELA. mlb1 13:14 Patient moved to Pre RCE gr2 13:15 Triage Initiated mlb1 13:20 Patient visited by Royal Hurtado, RN. mlb1 13:20 Patient moved to 8 mlb1 13:25 EKG done. (by ED staff). Reviewed by Italia Uriarte MD. jrd 13:26 Italia Uriarte MD is Attending Physician. br1 13:29 Patient visited by Kev Hoskins PCA. jrd 13:33 Patient visited by Italia Uriarte MD. br1 14:00 Inserted saline lock: 20 gauge in left antecubital area. jmk 14:04 -Blood Culture Sent. [facility] 14:07 The patient / caregiver is instructed regarding the plan of care and ED course. jmk 15:15 Patient visited by Jose Raul Acevedo,NELA. jmk 15:33 Chest, 2 View (pa\\E\\lat) Returned. EDMS 15:33 CT Chest Angio R/O PE Returned. EDMS 16:34 Patient visited by Jose Raul Acevedo,NELA. jmk 16:51 [facility] Payment Agreement was scanned into [employer] and attached to record. zo 16:53 Patient visited by Jose Raul Acevedo,NELA. jmk 17:09 Patient visited by Jose Raul Acevedo,NELA. jmk 17:15 Rod Warren is Hospitalizing Provider. br1 17:22 CT Chest Angio R/O PE Returned. EDMS 18:23 Patient visited by Jose Raul Acevedo,NELA. jmk 18:47 Patient moved to Admit Hold kp 18:55 Kristin Zambrano,NELA is Primary Nurse. mlc 19:28 Patient visited by Kristin Zambrano RN. mlc 22:11 EKG-ADULT Returned. EDMS 08/13 09:01 T-Sheet-- Draft Copy was scanned into [employer] and attached to record. gb 09:38 Primary Nurse role handed off by Kristin Zambrano RN [facility] 08/14 12:42 ECG/EKG was scanned into [employer] and attached to record. gb Administered Medications: 08/12 13:46 Drug: Aspirin 324 mg [aspirin 81 mg chewable tablet (4 tabs)] Route: PO; [facility] 13:47 Drug: Nitrostat 0.4 mg [Nitrostat 0.4 mg sublingual tablet (1 tabs)] Route: Sublingual; [facility] 13:54 Drug: Nitrostat 0.4 mg [Nitrostat 0.4 mg sublingual tablet (1 tabs)] Route: Sublingual; [facility] 13:55 Follow up: Response: No significant change.; 04/[address] [facility] 14:03 Drug: Nitrostat 0.4 mg [Nitrostat 0.4 mg sublingual tablet (1 tabs)] Route: Sublingual; [facility] 14:04 Follow up: Response: No significant change.; 04/[address] [facility] 15:50 Drug: Albuterol-Ipratropium 1 neb [ipratropium-albuterol 0.5 mg-3 mg(2.5 mg base)/3 mL js11 nebulization soln (1 neb)] Route: Nebulizer; 16:10 Drug: Albuterol-Ipratropium 1 neb [ipratropium-albuterol 0.5 mg-3 mg(2.5 mg base)/3 mL js11 nebulization soln (1 neb)] Route: Nebulizer; 16:18 Drug: Albuterol-Ipratropium 1 neb [ipratropium-albuterol 0.5 mg-3 mg(2.5 mg base)/3 mL js11 nebulization soln (1 neb)] Route: Nebulizer; 16:32 Drug: Solu-MEDROL 125 mg [Solu-Medrol 500 mg intravenous solution (125 mg)] Route: IVP; [facility] Site: left antecubital; 16:52 Drug: morphine 4 mg Route: IVP; Site: left antecubital; [facility] 16:52 Drug: Ondansetron 4 mg Route: IVP; Site: left antecubital; [facility] Intake: RT: 15:50 Initial Med Neb Given as ordered Patient was instructed and evaluated on procedure js11 Patient tolerated procedure well without adverse effect. O2 via nasal cannula \\T\\ 4L/min. Respiratory: Breath sounds are diminished bilaterally. 16:10 Subsequent Med Neb Given as ordered Patient tolerated procedure well without adverse js11 effect. Respiratory: Breath sounds are diminished bilaterally. 16:19 Subsequent Med Neb Given as ordered Patient tolerated procedure well without adverse js11 effect. Respiratory: Breath sounds are diminished bilaterally. 18:53 ABG's drawn from right radial artery allens test done and positive pressure held for 5 js11 minutes no bleeding noted specimen sent pt. tolerated well. O2 via nasal cannula \\T\\ 4L/min. Order Results: Lab Order: Basic Metabolic Profile; SPEC'M 08/12/16 13:37 Test: GLUCOSE, FASTING; Value: 181; Range: 80-110; Abnormal: Above high normal; Units: MG/DL; Status: F Test: BLOOD UREA NITROGEN; Value: 16; Range: 7-18; Units: MG/DL; Status: F Test: CREATININE FOR GFR; Value: 0.97; Range: 0.55-1.02; Units: MG/DL; Status: F Test: GLOMERULAR FILTRATION RATE; Value: > 60.0; Range: >45; Status: F Test: SODIUM LEVEL; Value: 139; Range: 136-145; Units: MEQ/L; Status: F Test: POTASSIUM SERUM; Value: 3.7; Range: 3.5-5.1; Units: MEQ/L; Status: F Test: CHLORIDE LEVEL; Value: 103; Range: 98-107; Units: MEQ/L; Status: F Test: CARBON DIOXIDE LEVEL; Value: 27; Range: 21-32; Units: MEQ/L; Status: F Test: ANION GAP; Value: 9; Range: 8-16; Units: MEQ/L; Status: F Test: CALCIUM LEVEL; Value: 8.8; Range: 8.8-10.2; Units: MG/DL; Status: F Test Note: ; Units are mL/min/1.73 m2 Chronic Kidney Disease Staging per NKF: Stage I & II GFR >=60 Normal to Mildly Decreased Stage III GFR 30-59 Moderately Decreased Stage IV GFR 15-29 Severely Decreased Stage V GFR <15 Very Little GFR Left ESRD GFR <15 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 Lab Order: CBC with Diff; SPEC'M 08/12/16 13:37 Test: WHITE BLOOD COUNT; Value: 11.2; Range: 4.0-10.0; Abnormal: Above high normal; Units: K/mm3; Status: F Test: RED BLOOD COUNT; Value: 3.72; Range: 4.00-5.40; Abnormal: Below low normal; Units: M/mm3; Status: F Test: HEMOGLOBIN; Value: 10.8; Range: 12.0-16.0; Abnormal: Below low normal; Units: g/dl; Status: F Test: HEMATOCRIT; Value: 33.7; Range: 36.0-47.0; Abnormal: Below low normal; Units: %; Status: F Test: MEAN CORPUSCULAR VOLUME; Value: 90.7; Range: 80.0-96.0; Units: fl; Status: F Test: MEAN CORPUSCULAR HEMOGLOBIN; Value: 29.2; Range: 27.0-33.0; Units: pg; Status: F Test: MEAN CORPUSCULAR HGB CONC; Value: 32.1; Range: 32.0-36.5; Units: g/dl; Status: F Test: RED CELL DISTRIBUTION WIDTH; Value: 13.6; Range: 11.5-14.5; Units: %; Status: F Test: PLATELET COUNT, AUTOMATED; Value: 172; Range: 150-450; Units: k/mm3; Status: F Test: NEUTROPHILS %; Value: 86.3; Range: 36.0-66.0; Abnormal: Above high normal; Units: %; Status: F Test: LYMPH %; Value: 7.8; Range: 24.0-44.0; Abnormal: Below low normal; Units: %; Status: F Test: MONO %; Value: 4.3; Range: 0.0-5.0; Units: %; Status: F Test: EOS %; Value: 0.5; Range: 0.0-3.0; Units: %; Status: F Test: BASO %; Value: 0.2; Range: 0.0-1.0; Units: %; Status: F Test: LARGE UNSTAINED CELL %; Value: 0.9; Range: 0.0-4.0; Units: %; Status: F Test: NEUTROPHILS #; Value: 9.7; Range: 1.8-7.7; Abnormal: Above high normal; Units: K/mm3; Status: F Test: LYMPH #; Value: 0.9; Range: 1.5-4.5; Abnormal: Below low normal; Units: K/mm3; Status: F Test: MONO #; Value: 0.5; Range: 0.0-0.8; Units: K/mm3; Status: F Test: EOS #; Value: 0.1; Range: 0.0-0.50; Units: K/mm3; Status: F Test: BASO #; Value: 0.0; Range: 0.0-0.2; Units: K/mm3; Status: F Test: LARGE UNSTAINED CELL #; Value: 0.1; Range: 0.0-0.4; Units: K/mm3; Status: F Lab Order: Cardiac Injury Profile; SPEC' 08/12/16 13:37 Test: CPK CREATINE PHOSPHOKINASE; Value: 78; Range: 26-192; Units: U/L; Status: F Test: CK-MB VALUE MASS; Value: 1.0; Range: 0.0-3.6; Units: NG/ML; Status: F Test: MB/CK RELATIVE INDEX; Value: 1.28; Range: < OR =4; Status: F Test Note: ; DIAGNOSIS CRITERIA MMB ng/ml Relative Index (RI) NON-AMI < or = 5 N/A KERN ZONE > 5 < or = 4 AMI > 5 > 4 Lab Order: Troponin; SPEC' 08/12/16 13:37 Test: TROPONIN I; Value: < 0.02; Range: < 0.10; Units: NG/ML; Status: F Test Note: ; Troponin I Reference Interval for [facility] LOCI: 99th Percentile= 0.00-0.045 ng/ml Risk Stratification: <= 0.10 ng/ml Decreased Risk for Adverse Clinical Events. 0.10-1.50 ng/ml Increased Risk for Adverse Clinical Events. Evaluation of additional criterion and/or repeat testing in 2-6 hours is suggested to rule out myocardial damage. >= 1.50 ng/ml Indicative of Myocardial Injury. Lab Order: BNP; [facility] 08/12/16 13:37 Test: BRAIN NATRIURETIC PEPTIDE; Value: 104; Range: <100; Abnormal: Above high normal; Units: PG/ML; Status: F Lab Order: -Blood Culture; [facility] 08/12/16 13:37 Test: BLOOD CULTURE; Value: No growth after 24 hours . All specimens observed; Status: F Test: BLOOD CULTURE; Value: for 7 days. Results final at that time.; Status: F Lab Order: Lactic Acid (Kern tube on ice); [facility] 08/12/16 13:30 Test: LACTIC ACID SEPSIS PROTOCOL; Value: 1.6; Range: 0.4-2.0; Units: MMOL/L; Status: F Lab Order: BLOOD CULTURES; [facility] 08/12/16 13:37 Test: BLOOD CULTURE; Value: No growth after 24 hours . All specimens observed; Status: F Test: BLOOD CULTURE; Value: for 7 days. Results final at that time.; Status: F Lab Order: ARTERIAL BLOOD GAS; [facility] 08/12/16 18:48 Test: ABG pH (ARTERIAL); Value: 7.369; Range: 7.350-7.450; Units: UNITS; Status: F Test: ABG PARTIAL PRESSURE CO2; Value: 39.4; Range: 35.0-45.0; Units: mmHg; Status: F Test: ABG PARTIAL PRESSURE O2; Value: 105.8; Range: 75.0-100.0; Abnormal: Above high normal; Units: mmHg; Status: F Test: ABG TOTAL CO2; Value: 23.4; Range: 23.0-31.0; Units: MEQ/L; Status: F Test: ABG HCO3; Value: 22.2; Range: 22.0-26.0; Units: MEQ/L; Status: F Test: ABG BASE EXCESS; Value: -2.8; Range: -2.0-2.0; Abnormal: Below low normal; Status: F Test: ABG STANDARD HCO3; Value: 22.1; Range: 22.0-26.0; Units: MEQ/L; Status: F Test: ABG O2 SATURATION; Value: 98.0; Range: 95.0-99.0; Units: %; Status: F Lab Order: CARDIAC INJURY PROFILE; [facility] 08/12/16 21:52 Test: CPK CREATINE PHOSPHOKINASE; Value: 57; Range: 26-192; Units: U/L; Status: F Test: CK-MB VALUE MASS; Value: 1.0; Range: 0.0-3.6; Units: NG/ML; Status: F Test: MB/CK RELATIVE INDEX; Value: 1.75; Range: < OR =4; Status: F Test Note: ; DIAGNOSIS CRITERIA MMB ng/ml Relative Index (RI) NON-AMI < or = 5 N/A KERN ZONE > 5 < or = 4 AMI > 5 > 4 Lab Order: TROPONIN; 08/12/16 21:52 Test: TROPONIN I; Value: < 0.02; Range: < 0.10; Units: NG/ML; Status: F Test Note: ; Troponin I Reference Interval for [employer] LOCI: 99th Percentile= 0.00-0.045 ng/ml Risk Stratification: <= 0.10 ng/ml Decreased Risk for Adverse Clinical Events. 0.10-1.50 ng/ml Increased Risk for Adverse Clinical Events. Evaluation of additional criterion and/or repeat testing in 2-6 hours is suggested to rule out myocardial damage. >= 1.50 ng/ml Indicative of Myocardial Injury. Lab Order: COMPLETE COMPHRENSIVE METABOLI; [facility]08/13/16 07:47 Test: GLUCOSE, FASTING; Value: 389; Range: 80-110; Abnormal: Above high normal; Units: MG/DL; Status: F Test: BLOOD UREA NITROGEN; Value: 29; Range: 7-18; Abnormal: High; Units: MG/DL; Status: F Test: CREATININE FOR GFR; Value: 1.76; Range: 0.55-1.02; Abnormal: High; Units: MG/DL; Status: F Test: GLOMERULAR FILTRATION RATE; Value: 30.7; Range: >45; Abnormal: Below low normal; Status: F Test: SODIUM LEVEL; Value: 138; Range: 136-145; Units: MEQ/L; Status: F Test: POTASSIUM SERUM; Value: 3.9; Range: 3.5-5.1; Units: MEQ/L; Status: F Test: CHLORIDE LEVEL; Value: 102; Range: 98-107; Units: MEQ/L; Status: F Test: CARBON DIOXIDE LEVEL; Value: 24; Range: 21-32; Units: MEQ/L; Status: F Test: ANION GAP; Value: 12; Range: 8-16; Units: MEQ/L; Status: F Test: CALCIUM LEVEL; Value: 8.7; Range: 8.8-10.2; Abnormal: Below low normal; Units: MG/DL; Status: F Test: AST/SGOT; Value: 7; Range: 15-37; Abnormal: Below low normal; Units: U/L; Status: F Test: ALT/SGPT; Value: 13; Range: 12-78; Units: U/L; Status: F Test: ALKALINE PHOSPHATASE; Value: 65; Range: 45-117; Units: U/L; Status: F Test: BILIRUBIN,TOTAL; Value: 0.4; Range: 0.2-1.0; Units: MG/DL; Status: F Test: TOTAL PROTEIN; Value: 6.8; Range: 6.4-8.2; Units: GM/DL; Status: F Test: ALBUMIN; Value: 3.0; Range: 3.2-5.2; Abnormal: Below low normal; Units: GM/DL; Status: F Test: ALBUMIN/GLOBULIN RATIO; Value: 0.79; Range: 1.00-1.93; Abnormal: Below low normal; Status: F Test Note: ; Units are mL/min/1.73 m2 Chronic Kidney Disease Staging per NKF: Stage I & II GFR >=60 Normal to Mildly Decreased Stage III GFR 30-59 Moderately Decreased Stage IV GFR 15-29 Severely Decreased Stage V GFR <15 Very Little GFR Left ESRD 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 <15 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 Lab Order: THYROID STIMULATING HORMONE; 08/13/16 07:47 Test: THYROID STIMULATING HORMONE; Value: 0.726; Range: 0.358-3.740; Units: uIU/ML; Status: F Lab Order: HEMOGLOBIN A1C; 08/13/16 07:47 Test: HEMOGLOBIN A1c; Value: 6.9; Range: 4.5-6.2; Abnormal: Above high normal; Units: %; Status: F Test: ESTIMATED AVERAGE GLUCOSE; Value: 151; Range: 60-110; Abnormal: Above high normal; Units: MG/DL; Status: F Lab Order: MAGNESIUM LEVEL; 08/13/16 07:47 Test: MAGNESIUM LEVEL; Value: 1.9; Range: 1.8-2.4; Units: MG/DL; Status: F Lab Order: CBC WITH DIFFERENTIAL; 08/13/16 07:47 Test: WHITE BLOOD COUNT; Value: 11.4; Range: 4.0-10.0; Abnormal: Above high normal; Units: K/mm3; Status: F Test: RED BLOOD COUNT; Value: 3.43; Range: 4.00-5.40; Abnormal: Below low normal; Units: M/mm3; Status: F Test: HEMOGLOBIN; Value: 10.0; Range: 12.0-16.0; Abnormal: Below low normal; Units: g/dl; Status: F Test: HEMATOCRIT; Value: 32.3; Range: 36.0-47.0; Abnormal: Below low normal; Units: %; Status: F Test: MEAN CORPUSCULAR VOLUME; Value: 94.1; Range: 80.0-96.0; Units: fl; Status: F Test: MEAN CORPUSCULAR HEMOGLOBIN; Value: 29.2; Range: 27.0-33.0; Units: pg; Status: F Test: MEAN CORPUSCULAR HGB CONC; Value: 31.1; Range: 32.0-36.5; Abnormal: Below low normal; Units: g/dl; Status: F Test: RED CELL DISTRIBUTION WIDTH; Value: 13.4; Range: 11.5-14.5; Units: %; Status: F Test: PLATELET COUNT, AUTOMATED; Value: 159; Range: 150-450; Units: k/mm3; Status: F Test: NEUTROPHILS %; Value: 92.4; Range: 36.0-66.0; Abnormal: Above high normal; Units: %; Status: F Test: LYMPH %; Value: 4.5; Range: 24.0-44.0; Abnormal: Below low normal; Units: %; Status: F Test: MONO %; Value: 2.2; Range: 0.0-5.0; Units: %; Status: F Test: EOS %; Value: 0.5; Range: 0.0-3.0; Units: %; Status: F Test: BASO %; Value: 0.0; Range: 0.0-1.0; Units: %; Status: F Test: LARGE UNSTAINED CELL %; Value: 0.3; Range: 0.0-4.0; Units: %; Status: F Test: NEUTROPHILS #; Value: 10.5; Range: 1.8-7.7; Abnormal: Above high normal; Units: K/mm3; Status: F Test: LYMPH #; Value: 0.5; Range: 1.5-4.5; Abnormal: Below low normal; Units: K/mm3; Status: F Test: MONO #; Value: 0.3; Range: 0.0-0.8; Units: K/mm3; Status: F Test: EOS #; Value: 0.1; Range: 0.0-0.50; Units: K/mm3; Status: F Test: BASO #; Value: 0.0; Range: 0.0-0.2; Units: K/mm3; Status: F Test: LARGE UNSTAINED CELL #; Value: 0.0; Range: 0.0-0.4; Units: K/mm3; Status: F Lab Order: CARDIAC RISK PROFILE; [facility]' 08/13/16 07:47 Test: TRIGLYCERIDES LEVEL; Value: 29; Range: <150; Units: MG/DL; Status: F Test: CHOLESTEROL LEVEL; Value: 109; Range: <200; Units: MG/DL; Status: F Test: HDL CHOLESTEROL; Value: 75; Range: >40; Units: MG/DL; Status: F Test: LDL CHOLESTEROL; Value: 28.2; Range: <100; Units: MG/DL; Status: F Test: NON-HDL-C; Value: 34; Units: MG/DL; Status: F Test: CHOLESTEROL RISK RATIO; Value: 1.453; Range: <5; Status: F Lab Order: CARDIAC INJURY PROFILE; SPEC'M 08/13/16 07:47 Test: CPK CREATINE PHOSPHOKINASE; Value: 46; Range: 26-192; Units: U/L; Status: F Test: CK-MB VALUE MASS; Value: 1.4; Range: 0.0-3.6; Units: NG/ML; Status: F Test: MB/CK RELATIVE INDEX; Value: 3.04; Range: < OR =4; Status: F Test Note: ; DIAGNOSIS CRITERIA MMB ng/ml Relative Index (RI) NON-AMI < or = 5 N/A KERN ZONE > 5 < or = 4 AMI > 5 > 4 Lab Order: TROPONIN; SPEC'M 08/13/16 07:47 Test: TROPONIN I; Value: < 0.02; Range: < 0.10; Units: NG/ML; Status: F Test Note: ; Troponin I Reference Interval for [employer] LOCI: 99th Percentile= 0.00-0.045 ng/ml Risk Stratification: <= 0.10 ng/ml Decreased Risk for Adverse Clinical Events. 0.10-1.50 ng/ml Increased Risk for Adverse Clinical Events. Evaluation of additional criterion and/or repeat testing in 2-6 hours is suggested to rule out myocardial damage. >= 1.50 ng/ml Indicative of Myocardial Injury. 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; : 1950 Requested By: ITALIA Streeter; Order Number: [id number] Reading MD: Ani Wei; Measurements; Intervals [place]; Rate: 105 P: 52; UT: 155 QRS: -4; QRSD: 126 T: 34; QT: 350; QTc: 463; Interpretive Statements; SINUS TACHYCARDIA; RIGHT BUNDLE BRANCH BLOCK; NEW Right bundle branch block; 12/11/15; Electronically Signed On 08-12-2016 21:56:12 EST by Ani Wei; Radiology Order: Chest, 2 View (pa\\E\\lat) Test: Chest, 2 View (pa\\E\\lat) REASON FOR EXAMINATION: Chest Pain; CHEST X-RAY: TWO VIEWS.; ; HISTORY: Chest pain.; ; COMPARISON STUDY: December 11, 2015; ; FINDINGS: EKG monitoring electrodes and oxygen tubing overlie the chest. Heart; is not enlarged. The lungs are well inflated and clear. Pleural angles are; sharp. No significant bony abnormality is seen.; ; IMPRESSION:; ; No active disease.; ; ; Signed by; Kevan Bender MD 08/12/2016 03:06 P; Radiology Order: CT Chest Angio R/O PE Test: CT Chest Angio R/O PE REASON FOR EXAMINATION: Shortness of Breath;Chest Pain; CT pulmonary angiogram: With IV contrast.; ; History: Shortness of breath and chest pain.; ; Comparison studies: No comparison CT studies. Comparison is made with today's; chest x-ray.; ; Contrast dose: 75 cc's of Isovue 370 are administered intravenously.; ; CT technique: Helical scanning is acquired and overlapping 1.5 mm and contiguous; 3 mm axial images are reformatted. In addition, a 3-D work station is deployed; to generate thick slab maximum intensity projection images in sagittal and; coronal imaging projections.; ; CT pulmonary angiographic findings: There is good opacification of the pulmonary; arterial tree. There is no CT evidence of pulmonary embolism. Thoracic aorta is; normal in coarse, caliber and homogeneous in density. There is no evidence of; aneurysm or dissection. No hilar or mediastinal mass or adenopathy is observed.; No pleural effusion is seen. There is a mild pericardial effusion. No adrenal; lesion is seen. The visualized upper abdominal structures are unremarkable. A; prosthetic left shoulder joint is seen casting some spray artifact. The lung; gerber show no evidence of infiltrate or mass lesion. No bony destructive lesion; is appreciated.; ; Impression:; ; No CT evidence of pulmonary embolism. Small pericardial effusion noted.; Otherwise unremarkable CT pulmonary angiogram.; ; ; Signed by; Kevan Bender MD 08/12/2016 04:34 P; Outcome: 17:15 Decision to Hospitalize by Provider. br1 08/13 15:33 Patient left the ED. ld5 Signatures: Dispatcher [employer] EDMS Fernanda Arias RN RN Jose Raul Jerry,RN RN Cheyenne Osorio RN RN srm Melania, Mojgan, Reg Reg gb Bryant, Royal Cantrell RN RN mlb1 Petr Luna Brian, MD MD br1 Candelaria TelloRN RN ld5 Mathieu Anderson js11 Mariah DudleyRN RN [facility] Pedrito Fragoso gr2 Kristin Zambrano,RN RN [facility] Kev Hoskins, ELINA RECORDER HELPER SEISMOGRAPH jrd Corrections: (The following items were deleted from the chart) 08/12 13:19 13:11 BP 146 / 62; Pulse 106bpm; Resp 20bpm; Spontaneous; Pulse Ox 93% RA; 102.06 kg mlb1 Reported; Height 5 ft. 4 in. Reported; BMI: 38.6; Pain 4/10; TEMP WILL NEED TO BE TAKEN; gr2 Chart Complete MTDD
--- NOTE | 2016-08-15 16:34 | EDDOCDS ---
Physician Documentation [facility] Name: Qiana Veloz Age: 66 yrs Sex: Female : 1950 Arrival Date: 08/12/2016 Time: 13:09 Bed Admit Hold Private MD: Royal Duran FPA Disposition: 08/12/16 17:15 Hospitalization ordered by Rod Warren for Inpatient Admission. Preliminary diagnosis are Chronic obstructive pulmonary disease with (acute) exacerbation, Pericardial effusion (noninflammatory), Abnormal electrocardiogram [ECG] [EKG], Chest pain, unspecified. - Bed requested for PCU. - Status is Inpatient Admission. ld5 - Condition is Stable. - Problem is new. - Symptoms are unchanged. Historical: - Allergies: Codeine Sulfate; PENICILLINS; - Home Meds: 1. pregabalin 50 mg Oral cap twice a day 2. magnesium oxide 500 mg Oral cap daily 3. folic acid 1 mg Oral tab 1 tab once daily 4. losartan 100 mg oral tab once daily 5. atorvastatin 10 mg oral tab 1 tab once daily 6. ferrous sulfate 325 mg (65 mg iron) Oral tab daily 7. amlodipine 5 mg Oral tab 1 tab once daily 8. citalopram 20 mg Oral tab 1 tab once daily 9. pioglitazone 30 mg oral tab 1 tab once daily 10. Januvia 100 mg oral tab 1 tab once daily 11. rabeprazole 20 mg oral TbEC 1 tab once daily 12. glimepiride 4 mg Oral tab 1 tab once daily 13. rizatriptan 10 mg oral tab 1 tablet at onset of KHANNA, may repeat in 2 hours 14. Vitamin B-6 200 mg Oral tab daily - PMHx: COPD; Diabetes - NIDDM: controlled; Diabetic Neuropathy; Hypercholesterolemia; Hypertension; polymyalgia rheumatica; - PSHx: Shoulder Arthroplasty, Left; - Social history: Smoking status: Patient states former smoker of tobacco. No barriers to communication noted, The patient speaks fluent Kenyan, Speaks appropriately for age. - Family history: Not pertinent. - : The pt / caregiver states he / she is not on anticoagulants. Home medication list is obtained from the patient. - Exposure Risk Screening:: None identified. Vital Signs: 08/12 13:11 BP 146 / 62; Pulse 106; Resp 32 S; Pulse Ox 93% on R/A; Weight 102.06 kg / 225 lbs (R); mlb1 Height 5 ft. 4 in. (162.56 cm) (R); Pain 4/10; 13:46 BP 131 / 90 (auto/); cjh 13:50 Pulse 102 MON; Pulse Ox 96% ; cjh 13:53 Pulse 102 MON; Pulse Ox 93% ; cjh 13:53 BP 131 / 84 (auto/); cjh 13:54 Pulse 102 MON; Pulse Ox 92% ; cjh 13:54 BP 142 / 70 (auto/); Temp 100.4(O); cjh 14:01 Pulse 100 MON; Pulse Ox 93% ; cjh 14:01 BP 128 / 67 (auto/); cjh 14:09 BP 126 / 64 (auto/); jmk 14:09 Pulse 100 MON; Pulse Ox 96% ; jmk 14:23 Pulse 94 MON; Pulse Ox 99% ; jmk 14:24 BP 117 / 67 (auto/); jmk 14:39 BP 128 / 75 (auto/); jmk 14:39 Pulse 94 MON; Pulse Ox 98% ; jmk 14:53 Pulse 100 MON; Pulse Ox 94% ; jmk 14:54 BP 152 / 68 (auto/); jmk 15:09 BP 145 / 69 (auto/); jmk 15:09 Pulse 96 MON; Pulse Ox 98% ; jmk 15:38 Pulse 92 MON; Pulse Ox 98% ; jmk 15:39 BP 130 / 65 (auto/); jmk 15:53 Pulse 88 MON; Pulse Ox 98% ; jmk 15:54 BP 120 / 58 (auto/); jmk 16:08 Pulse 92 MON; Pulse Ox 100% ; jmk 16:09 BP 125 / 61 (auto/); jmk 16:23 Pulse 108 MON; Pulse Ox 99% ; jmk 16:24 BP 129 / 66 (auto/); jmk 16:38 Pulse 104 MON; Pulse Ox 97% ; jmk 16:39 BP 124 / 79 (auto/); jmk 19:13 Pulse 96 MON; Pulse Ox 95% ; mlc 13:11 Body Mass Index 38.62 (102.06 kg, 162.56 cm) mlb1 13:11 TEMP WILL NEED TO BE TAKEN mlb1 MDM: 13:22 ECG WITH READING ER PHYS+CARDIAG ordered. EDMS 13:33 Oral Temp ordered. br1 13:33 Screen Vent Binder/Pulse Ox/q 30 min VS ordered. br1 13:33 IV Saline Lock ordered. br1 13:33 Rhythm Strip to chart ordered. br1 13:33 Undress patient appropriately for examination ordered. br1 13:34 Basic Metabolic Profile Ordered. EDMS 13:34 CBC with Diff Ordered. EDMS 13:34 Cardiac Injury Profile Ordered. EDMS 13:34 Troponin Ordered. EDMS 13:34 Oxygen at 2L/min via NC ordered. br1 13:35 Aspirin 324 mg PO once ordered. br1 13:35 Nitrostat 0.4 mg Sublingual every 5 minutes; hold if SBP<90mmHg.Document Pain Score br1 Response to Each Dose x3 ordered. 13:35 Chest, 2 View (pa\E\lat) Ordered. EDMS 13:35 BNP Ordered. EDMS 13:58 -Blood Culture (Adults Only), peripheral from different site, or from device/port/PICC br1 etc. if present ordered. 13:59 Lactic Acid (Kern tube on ice) Ordered. EDMS 13:59 -Blood Culture Ordered. EDMS 14:03 -Blood Culture (Adults Only), peripheral from different site, or from device/port/PICC lbd etc. if present complete. 14:06 BLOOD CULTURES Ordered. EDMS 14:40 Basic Metabolic Profile Reviewed. br1 14:40 CBC with Diff Reviewed. br1 14:40 BNP Reviewed. br1 14:40 Cardiac Injury Profile Reviewed. br1 14:40 Troponin Reviewed. br1 14:40 Lactic Acid (Kern tube on ice) Reviewed. br1 14:41 CT Chest Angio R/O PE Ordered. EDMS 15:24 Albuterol-Ipratropium 1 neb Nebulizer every 20 minutes x3 ordered. br1 15:25 Call Respiratory ordered. br1 15:25 Call Respiratory complete. rs6 15:52 Chest, 2 View (pa\E\lat) Reviewed. br1 15:52 CT Chest Angio R/O PE Reviewed. br1 15:54 Solu-MEDROL 125 mg IVP once ordered. br1 16:42 morphine 4 mg IVP once ordered. br1 16:42 Ondansetron 4 mg IVP once ordered. br1 16:50 Financial registration complete. zo 16:51 [facility] Payment Agreement was scanned into [employer] and attached to record. zo 17:10 BED REQUEST+ADM ordered. EDMS 18:27 Admission / Observation Status ordered. EDMS 18:27 ECHOCARD,DOPPLER/COLOR FLOW ordered. EDMS 18:27 COPD DIET ordered. EDMS 18:28 ARTERIAL BLOOD GAS Ordered. EDMS 18:28 CARDIAC INJURY PROFILE Ordered. EDMS 18:28 TROPONIN Ordered. EDMS 18:28 RESPIRATORY PANEL Ordered. EDMS 18:28 SPUTUM CULTURE AND GRAM STAIN Ordered. EDMS 02 06:45 NPO FOR TEST/PROCEDURE ordered. EDMS 06:46 Upper G.I. w-air-small bowel Ordered. EDMS 06:48 COMPLETE COMPHRENSIVE METABOLI Ordered. EDMS 06:48 THYROID STIMULATING HORMONE Ordered. EDMS 06:48 HEMOGLOBIN A1C Ordered. EDMS 06:48 MAGNESIUM LEVEL Ordered. EDMS 06:48 CBC WITH DIFFERENTIAL Ordered. EDMS 06:48 CARDIAC RISK PROFILE Ordered. EDMS 06:53 ELECTROCARDIOGRAM ADULT ordered. EDMS 07:43 CARDIAC INJURY PROFILE Ordered. EDMS 07:43 TROPONIN Ordered. EDMS 09:01 T-Sheet-- Draft Copy was scanned into [employer] and attached to record. gb 14:48 REGULAR DIET ordered. EDMS 08/14 12:42 ECG/EKG was scanned into [employer] and attached to record. gb Administered Medications: 08/12 13:46 Drug: Aspirin 324 mg [aspirin 81 mg chewable tablet (4 tabs)] Route: PO; [facility] 13:47 Drug: Nitrostat 0.4 mg [Nitrostat 0.4 mg sublingual tablet (1 tabs)] Route: Sublingual; [facility] 13:54 Drug: Nitrostat 0.4 mg [Nitrostat 0.4 mg sublingual tablet (1 tabs)] Route: Sublingual; [facility] 13:55 Follow up: Response: No significant change.; 04/13 [facility] 14:03 Drug: Nitrostat 0.4 mg [Nitrostat 0.4 mg sublingual tablet (1 tabs)] Route: Sublingual; [facility] 14:04 Follow up: Response: No significant change.; 04/13 cj 15:50 Drug: Albuterol-Ipratropium 1 neb [ipratropium-albuterol 0.5 mg-3 mg(2.5 mg base)/3 mL js11 nebulization soln (1 neb)] Route: Nebulizer; 16:10 Drug: Albuterol-Ipratropium 1 neb [ipratropium-albuterol 0.5 mg-3 mg(2.5 mg base)/3 mL js11 nebulization soln (1 neb)] Route: Nebulizer; 16:18 Drug: Albuterol-Ipratropium 1 neb [ipratropium-albuterol 0.5 mg-3 mg(2.5 mg base)/3 mL js11 nebulization soln (1 neb)] Route: Nebulizer; 16:32 Drug: Solu-MEDROL 125 mg [Solu-Medrol 500 mg intravenous solution (125 mg)] Route: IVP; [facility] Site: left antecubital; 16:52 Drug: morphine 4 mg Route: IVP; Site: left antecubital; [facility] 16:52 Drug: Ondansetron 4 mg Route: IVP; Site: left antecubital; [facility] Signatures: Dispatcher MedHost EDMS Qiana Marrero, Sandblast Carver Unit lbd Mojgan Velázquez, Reg Reg gb Royal Hurtado RN RN mlb1 Petr Luna Brian, MD MD br1 Candelaria TelloRN RN ld5 Mairah DudleyRN RN [facility] Amaya Greco RN RN sls2 Rosalia Baez, ELINA BAT PERSON rs6 Jose Raul Acevedo RN Mathieu Leyva js11 The chart was reviewed and I authenticate all verbal orders and agree with the evaluation and treatment provided.Corrections: (The following items were deleted from the chart) 08/13 07:44 08/12 19:32 CARDIAC INJURY PROFILE ordered. EDMS EDMS 08/13 07:44 08/12 19:32 TROPONIN ordered. EDKY EDMS Attachments: 16:51 [facility] Payment Agreement zo 08/13 09:01 T-Sheet-- Draft Copy gb 08/14 12:42 ECG/EKG Chart Complete MTDD
--- NOTE | 2016-08-15 16:34 | EDDOCDS ---
Physician Documentation [facility] Name: Qiana Veloz Age: 66 yrs Sex: Female : 1950 Arrival Date: 08/12/2016 Time: 13:09 Bed Admit Hold Private MD: Royal Duran FPA Disposition: 08/12/16 17:15 Hospitalization ordered by Rod Warren for Inpatient Admission. Preliminary diagnosis are Chronic obstructive pulmonary disease with (acute) exacerbation, Pericardial effusion (noninflammatory), Abnormal electrocardiogram [ECG] [EKG], Chest pain, unspecified. - Bed requested for PCU. - Status is Inpatient Admission. ld5 - Condition is Stable. - Problem is new. - Symptoms are unchanged. Historical: - Allergies: Codeine Sulfate; PENICILLINS; - Home Meds: 1. pregabalin 50 mg Oral cap twice a day 2. magnesium oxide 500 mg Oral cap daily 3. folic acid 1 mg Oral tab 1 tab once daily 4. losartan 100 mg oral tab once daily 5. atorvastatin 10 mg oral tab 1 tab once daily 6. ferrous sulfate 325 mg (65 mg iron) Oral tab daily 7. amlodipine 5 mg Oral tab 1 tab once daily 8. citalopram 20 mg Oral tab 1 tab once daily 9. pioglitazone 30 mg oral tab 1 tab once daily 10. Januvia 100 mg oral tab 1 tab once daily 11. rabeprazole 20 mg oral TbEC 1 tab once daily 12. glimepiride 4 mg Oral tab 1 tab once daily 13. rizatriptan 10 mg oral tab 1 tablet at onset of KHANNA, may repeat in 2 hours 14. Vitamin B-6 200 mg Oral tab daily - PMHx: COPD; Diabetes - NIDDM: controlled; Diabetic Neuropathy; Hypercholesterolemia; Hypertension; polymyalgia rheumatica; - PSHx: Shoulder Arthroplasty, Left; - Social history: Smoking status: Patient states former smoker of tobacco. No barriers to communication noted, The patient speaks fluent Malagasy, Speaks appropriately for age. - Family history: Not pertinent. - : The pt / caregiver states he / she is not on anticoagulants. Home medication list is obtained from the patient. - Exposure Risk Screening:: None identified. Vital Signs: 08/12 13:11 BP 146 / 62; Pulse 106; Resp 32 S; Pulse Ox 93% on R/A; Weight 102.06 kg / 225 lbs (R); mlb1 Height 5 ft. 4 in. (162.56 cm) (R); Pain 4/10; 13:46 BP 131 / 90 (auto/); cjh 13:50 Pulse 102 MON; Pulse Ox 96% ; cjh 13:53 Pulse 102 MON; Pulse Ox 93% ; cjh 13:53 BP 131 / 84 (auto/); cjh 13:54 Pulse 102 MON; Pulse Ox 92% ; cjh 13:54 BP 142 / 70 (auto/); Temp 100.4(O); cjh 14:01 Pulse 100 MON; Pulse Ox 93% ; cjh 14:01 BP 128 / 67 (auto/); cjh 14:09 BP 126 / 64 (auto/); jmk 14:09 Pulse 100 MON; Pulse Ox 96% ; jmk 14:23 Pulse 94 MON; Pulse Ox 99% ; jmk 14:24 BP 117 / 67 (auto/); jmk 14:39 BP 128 / 75 (auto/); jmk 14:39 Pulse 94 MON; Pulse Ox 98% ; jmk 14:53 Pulse 100 MON; Pulse Ox 94% ; jmk 14:54 BP 152 / 68 (auto/); jmk 15:09 BP 145 / 69 (auto/); jmk 15:09 Pulse 96 MON; Pulse Ox 98% ; jmk 15:38 Pulse 92 MON; Pulse Ox 98% ; jmk 15:39 BP 130 / 65 (auto/); jmk 15:53 Pulse 88 MON; Pulse Ox 98% ; jmk 15:54 BP 120 / 58 (auto/); jmk 16:08 Pulse 92 MON; Pulse Ox 100% ; jmk 16:09 BP 125 / 61 (auto/); jmk 16:23 Pulse 108 MON; Pulse Ox 99% ; jmk 16:24 BP 129 / 66 (auto/); jmk 16:38 Pulse 104 MON; Pulse Ox 97% ; jmk 16:39 BP 124 / 79 (auto/); jmk 19:13 Pulse 96 MON; Pulse Ox 95% ; mlc 13:11 Body Mass Index 38.62 (102.06 kg, 162.56 cm) mlb1 13:11 TEMP WILL NEED TO BE TAKEN mlb1 MDM: 13:22 ECG WITH READING ER PHYS+CARDIAG ordered. EDMS 13:33 Oral Temp ordered. br1 13:33 Store Hand/Pulse Ox/q 30 min VS ordered. br1 13:33 IV Saline Lock ordered. br1 13:33 Rhythm Strip to chart ordered. br1 13:33 Undress patient appropriately for examination ordered. br1 13:34 Basic Metabolic Profile Ordered. EDMS 13:34 CBC with Diff Ordered. EDMS 13:34 Cardiac Injury Profile Ordered. EDMS 13:34 Troponin Ordered. EDMS 13:34 Oxygen at 2L/min via NC ordered. br1 13:35 Aspirin 324 mg PO once ordered. br1 13:35 Nitrostat 0.4 mg Sublingual every 5 minutes; hold if SBP<90mmHg.Document Pain Score br1 Response to Each Dose x3 ordered. 13:35 Chest, 2 View (pa\E\lat) Ordered. EDMS 13:35 BNP Ordered. EDMS 13:58 -Blood Culture (Adults Only), peripheral from different site, or from device/port/PICC br1 etc. if present ordered. 13:59 Lactic Acid (Kern tube on ice) Ordered. EDMS 13:59 -Blood Culture Ordered. EDMS 14:03 -Blood Culture (Adults Only), peripheral from different site, or from device/port/PICC lbd etc. if present complete. 14:06 BLOOD CULTURES Ordered. EDMS 14:40 Basic Metabolic Profile Reviewed. br1 14:40 CBC with Diff Reviewed. br1 14:40 BNP Reviewed. br1 14:40 Cardiac Injury Profile Reviewed. br1 14:40 Troponin Reviewed. br1 14:40 Lactic Acid (Kern tube on ice) Reviewed. br1 14:41 CT Chest Angio R/O PE Ordered. EDMS 15:24 Albuterol-Ipratropium 1 neb Nebulizer every 20 minutes x3 ordered. br1 15:25 Call Respiratory ordered. br1 15:25 Call Respiratory complete. rs6 15:52 Chest, 2 View (pa\E\lat) Reviewed. br1 15:52 CT Chest Angio R/O PE Reviewed. br1 15:54 Solu-MEDROL 125 mg IVP once ordered. br1 16:42 morphine 4 mg IVP once ordered. br1 16:42 Ondansetron 4 mg IVP once ordered. br1 16:50 Financial registration complete. zo 16:51 [facility] [place] Payment Agreement was scanned into [employer] and attached to record. zo 17:10 BED REQUEST+ADM ordered. EDMS 18:27 Admission / Observation Status ordered. EDMS 18:27 ECHOCARD,DOPPLER/COLOR FLOW ordered. EDMS 18:27 COPD DIET ordered. EDMS 18:28 ARTERIAL BLOOD GAS Ordered. EDMS 18:28 CARDIAC INJURY PROFILE Ordered. EDMS 18:28 TROPONIN Ordered. EDMS 18:28 RESPIRATORY PANEL Ordered. EDMS 18:28 SPUTUM CULTURE AND GRAM STAIN Ordered. EDMS 02 06:45 NPO FOR TEST/PROCEDURE ordered. EDMS 06:46 Upper G.I. w-air-small bowel Ordered. EDMS 06:48 COMPLETE COMPHRENSIVE METABOLI Ordered. EDMS 06:48 THYROID STIMULATING HORMONE Ordered. EDMS 06:48 HEMOGLOBIN A1C Ordered. EDMS 06:48 MAGNESIUM LEVEL Ordered. EDMS 06:48 CBC WITH DIFFERENTIAL Ordered. EDMS 06:48 CARDIAC RISK PROFILE Ordered. EDMS 06:53 ELECTROCARDIOGRAM ADULT ordered. EDMS 07:43 CARDIAC INJURY PROFILE Ordered. EDMS 07:43 TROPONIN Ordered. EDMS 09:01 T-Sheet-- Draft Copy was scanned into [employer] and attached to record. gb 14:48 REGULAR DIET ordered. EDMS 08/14 12:42 ECG/EKG was scanned into [employer] and attached to record. gb Administered Medications: 08/12 13:46 Drug: Aspirin 324 mg [aspirin 81 mg chewable tablet (4 tabs)] Route: PO; [facility] 13:47 Drug: Nitrostat 0.4 mg [Nitrostat 0.4 mg sublingual tablet (1 tabs)] Route: Sublingual; [facility] 13:54 Drug: Nitrostat 0.4 mg [Nitrostat 0.4 mg sublingual tablet (1 tabs)] Route: Sublingual; [facility] 13:55 Follow up: Response: No significant change.; 04/13 [facility] 14:03 Drug: Nitrostat 0.4 mg [Nitrostat 0.4 mg sublingual tablet (1 tabs)] Route: Sublingual; [facility] 14:04 Follow up: Response: No significant change.; 04/13 cj 15:50 Drug: Albuterol-Ipratropium 1 neb [ipratropium-albuterol 0.5 mg-3 mg(2.5 mg base)/3 mL js11 nebulization soln (1 neb)] Route: Nebulizer; 16:10 Drug: Albuterol-Ipratropium 1 neb [ipratropium-albuterol 0.5 mg-3 mg(2.5 mg base)/3 mL js11 nebulization soln (1 neb)] Route: Nebulizer; 16:18 Drug: Albuterol-Ipratropium 1 neb [ipratropium-albuterol 0.5 mg-3 mg(2.5 mg base)/3 mL js11 nebulization soln (1 neb)] Route: Nebulizer; 16:32 Drug: Solu-MEDROL 125 mg [Solu-Medrol 500 mg intravenous solution (125 mg)] Route: IVP; [facility] Site: left antecubital; 16:52 Drug: morphine 4 mg Route: IVP; Site: left antecubital; [facility] 16:52 Drug: Ondansetron 4 mg Route: IVP; Site: left antecubital; [facility] Signatures: Dispatcher MedHost EDMS Qiana Marrero, Spanish Language Lecturer Unit lbd Mojgan Velázquez, Reg Reg gb Royal Hurtado RN RN mlb1 Petr Luna Brian, MD MD br1 Candelaria TelloRN RN ld5 Mariah DudleyRN RN [facility] Amaya Greco RN RN sls2 Rosalia Baez, ELINA CREATIVE WRITING TEACHER rs6 Jose Raul Acevedo RN Mathieu Leyva js11 The chart was reviewed and I authenticate all verbal orders and agree with the evaluation and treatment provided.Corrections: (The following items were deleted from the chart) 08/13 07:44 08/12 19:32 CARDIAC INJURY PROFILE ordered. EDMS EDMS 08/13 07:44 08/12 19:32 TROPONIN ordered. EDUT EDMS Attachments: 16:51 [facility] Payment Agreement zo 08/13 09:01 T-Sheet-- Draft Copy gb 08/14 12:42 ECG/EKG Chart Complete MTDD
[2016-08-15] MEDS: CitaloPRAM (CeleXA) 20 MG TAB PO SCH (21:20)
[2016-08-15] MEDS: VITAMIN D 1,000 INTERNATIONAL UNITS TABLET PO SCH (21:20)
[2016-08-15] MEDS: OMEGA-3 1050MG CAPSULE PO SCH (21:20)
[2016-08-15] MEDS: VITAMIN B COMPLEX/VIT C CAP PO SCH (21:21)
[2016-08-15] MEDS: VITAMIN E 400 INTERNATIONAL UNITS CAP PO SCH (21:21)
[2016-08-15 22:00] VITALS: BP 143/70
[2016-08-16] MEDS: SUCRALFATE SUSP 1GM/10ML UD PO SCH ×4 (00:28→17:00)
[2016-08-16] MEDS: IPRATROPIUM 0.5MG/ALBUTEROL 2.5MG INH SOL UD 3ML (DUONEB)(J7620) NEB SCH ×6 (03:45→23:48)
[2016-08-16] MEDS: SLF 3 ML SYR IV SCH ×3 (05:19→20:56)
[2016-08-16] MEDS: methylPREDNISolone INJ 125 MG/2 ML VIAL (J2930) IV SCH ×3 (05:19→17:00)
[2016-08-16] MEDS: **hydrALAZINE** 10 MG TAB PO SCH ×5 (05:31→23:59)
[2016-08-16] MEDS ORDERED: GLIP10TA6 PO (05:38)
[2016-08-16] MEDS ORDERED: DOXY10CA PO (05:38)
[2016-08-16] MEDS ORDERED: PANT40TA2 PO (05:38)
[2016-08-16] MEDS ORDERED: AMLO10TA2 PO (05:38)
[2016-08-16] MEDS ORDERED: SUCR1TA PO (05:38)
[2016-08-16] MEDS ORDERED: HYDR10TAB PO (05:38)
[2016-08-16] MEDS ORDERED: PRED10PA PO (05:41)
[2016-08-16] MEDS ORDERED: amLODIPine 10 MG TAB PO ONE (05:45)
[2016-08-16] MEDS ORDERED: glipiZIDE 10 MG TAB PO ONE ×2 (05:45→17:00)
[2016-08-16 05:54] LABS: MEAN CORPUSCULAR HEMOGLOBIN 29.9 pg (27.0-33.0); MEAN CORPUSCULAR HGB CONC 32.1 g/dl (32.0-36.5); MEAN CORPUSCULAR VOLUME 92.9 fl (80.0-96.0); RED CELL DISTRIBUTION WIDTH 13.7 % (11.5-14.5); WHITE BLOOD COUNT 7.7 K/mm3 (4.0-10.0)
[2016-08-16 06:00] VITALS: BP 136/65
[2016-08-16 06:03] LABS: CALCIUM LEVEL 9.1 MG/DL (8.8-10.2); CREATININE FOR GFR 1.44 MG/DL (0.55-1.02); GLOMERULAR FILTRATION RATE 38.7 (>45)
[2016-08-16] MEDS: PANTOPRAZOLE 40MG INJ (PROTONIX) (C9113) IV SCH (07:35)
[2016-08-16] MEDS: HumaLOG INSULIN (NovoLOG) PER UNIT SC SCH ×4 (07:35→20:56)
[2016-08-16] MEDS: FOLIC ACID 1 MG TAB PO SCH (07:36)
[2016-08-16] MEDS: DOXYCYCLINE HYCLATE 100 MG TAB PO SCH ×2 (07:36→20:55)
[2016-08-16] MEDS: ATORVASTATIN 10 MG TAB PO SCH (07:36)
[2016-08-16] MEDS: predniSONE 20 MG TAB PO SCH (07:36)
[2016-08-16] MEDS: PREGABALIN 50 MG CAP (LYRICA) PO SCH ×2 (07:36→20:55)
[2016-08-16] MEDS: FERROUS SULFATE 325MG TAB PO SCH (07:36)
[2016-08-16] MEDS: LEVEMIR (INSULIN DETEMIR) 1 UNITS/0.01ML SC SCH (07:37)
[2016-08-16] MEDS: ENOXAPARIN 30 MG/0.3 ML SYR (J1650) SC SCH (07:37)
[2016-08-16] MEDS: BUDESONIDE 180MCG INHALER (PULMICORT FLEXHALER) INH SCH ×2 (13:29→20:09)
[2016-08-16] MEDS: TIOTROPIUM INHALER/CAPSULE (SPIRIVA) INH SCH (13:29)
[2016-08-16 14:00] VITALS: BP 147/79
--- NOTE | 2016-08-16 14:04 | REP ---
AP PORTABLE CHEST: 08/16/2016 at 09:23 AM. Comparison: 08/15/2016, 08/12/2016, 08/12/2016 CT angiogram chest. Clinical history: Dyspnea. Findings: Study again shows some cardiomegaly. There is vascular redistribution with some underlying interstitial fibrosis. Heavier markings at the left base with increasing atelectasis or infiltrate and possible effusion. Haziness at the right CP angle now noted suggesting some atelectasis or effusion. The engorgement of the veins has increased indicating worsening venous hypertension. No other change. Impression: 1. Cardiomegaly with worsening vascular congestion and increasing airspace opacity left base from atelectasis and/or infiltrate with effusion. Small effusion suspected on the right as well. Signed by Michael Ferrell MD 08/16/2016 07:25 P
--- NOTE | 2016-08-16 16:47 | IPN ---
DATE: 08/16/2016 Patient is seen and examined at the bedside. Chart has been reviewed. This morning, the patient still complains of dyspnea on exertion, desaturates to 79% on room air with ambulation and 84% at rest. Breathing is slightly worse today. The patient has had hyperglycemia induced by steroids with glucose level of 563, currently at 336 to 480 with Levemir insulin. Temperature 98.6, pulse 94, respiratory rate 20, blood pressure 136/65, 98% on 2 liters nasal cannula, 85% on room air at rest. GENERAL: Awake, alert, oriented times three. Some mild dyspnea. Unable to complete full sentences. No use of respiratory accessory muscles or abdominal muscles. No cyanosis. No jugular venous distention (JVD). LUNGS: Diminished breath sounds, bilateral coarse rhonchi. Expiratory wheezing. HEART: S1, S2. Sinus tachycardia. ABDOMEN: Obese, soft, nontender, nondistended. EXTREMITIES: Trace edema. LABORATORY DATA: White count 7.7, hemoglobin 9.5, hematocrit 29, platelet count 183. Sodium 145, potassium 4, chloride 111, bicarbonate 24, BUN 46, creatinine 1.44, glucose 334. Input and output: Input of 2690, output of 2 liters, positive 690. The patient had three bowel movements yesterday. ASSESSMENT AND PLAN: This is a 66-year-old female who has history of chronic obstructive pulmonary disease (COPD), not on home oxygen, type 2 diabetes, hypertension, obesity, polymyalgia rheumatica who presented to emergency room (ER) with acute onset of epigastric substernal chest pain and abdominal pain described as achy with shortness of breath and wheezing without fever or chills. CT of the chest shows no pulmonary embolus (PE) or pneumonia with small pericardial effusion. Troponin unremarkable. Patient underwent upper gastrointestinal (GI) series, which showed hiatal hernia, reflux disease, and a stomach polyp. The patient has been admitted for COPD exacerbation with decreased air entry and prolonged expiration and expiratory wheezing despite intravenous steroids. The patient was adamant about being discharged on Wednesday because she was afraid to lose her job on Wednesday; however, she is still unstable and requiring oxygen, which is new to her. IMPRESSION: 1. Acute hypoxic respiratory failure secondary to COPD exacerbation. The patient's saturations are 79% on room air with ambulation and 84% at rest. She is currently maximized on Solu-Medrol 60 mg IV every 6 hours, nebulizer treatments every 4 hours and every 2 hours as needed and not stable for discharge. Continue with oxygen supplementation to keep saturations above 88% to 92%. 2. Acute COPD exacerbation. The patient is unstable at this time and still requiring IV steroids. Therefore, we will discontinue oral prednisone. She was convinced to stay today due to unstable respiratory status and not to be discharged home prematurely. She is continued on IV Solu-Medrol, antibiotics, nebulizer treatments, supplemental oxygen. We will start inhaled steroids and Spiriva. 3. Acute renal failure. We have discontinued all nephrotoxins, cizzgibxuiw-iyawljkvmo-xwkxxi (THUY) inhibitor, hydrochlorothiazide. Seems to be improving with intravenous fluids, currently at 1.44 from peak creatinine of 2.08. Blood pressure is maintained using Norvasc, which we will increase to 10 mg daily, as well as hydralazine 10 mg every 6 hours. 4. Hypertension. The patient's diuretics, THUY inhibitor, and ARB have been avoided due to acute renal failure. Currently on Norvasc and hydralazine, titrate as required. 5. Steroid induced hyperglycemia/type 2 diabetes, uncontrolled. Currently on Levemir insulin twice a day. We will increase the dose. A1/c is 6.9, most likely recent hyperglycemia secondary to Solu-Medrol. 6. Polymyalgia rheumatica (PMR). Has been on steroids for 2 years. 7. Deep venous thrombosis (DVT) prophylaxis with Lovenox. DISPOSITION: Patient was adamant about being discharged today, afraid for her job thinking that she will lose her job if she did not go to work on Wednesday. However, she is unstable respiratory mata requiring supplemental oxygen to be discharged home with uncontrolled diabetes, as well as steroid-induced hyperglycemia and renal failure. The patient was agreeable to stay one more day in the hospital. Therefore, we will continue with full supportive care. VIRAL
[2016-08-16] MEDS: ACETAMINOPHEN TAB 650MG DOSE (2X325MG) PO PRN (18:54)
[2016-08-16] MEDS: OMEGA-3 1050MG CAPSULE PO SCH (20:55)
[2016-08-16] MEDS: VITAMIN E 400 INTERNATIONAL UNITS CAP PO SCH (20:55)
[2016-08-16] MEDS: VITAMIN D 1,000 INTERNATIONAL UNITS TABLET PO SCH (20:55)
[2016-08-16] MEDS: CitaloPRAM (CeleXA) 20 MG TAB PO SCH (20:55)
[2016-08-16] MEDS: VITAMIN B COMPLEX/VIT C CAP PO SCH (20:55)
[2016-08-16] MEDS ORDERED: LEVEMIR (INSULIN DETEMIR) 1 UNITS/0.01ML SC SCH (21:00)
[2016-08-16 22:00] VITALS: BP 165/72
[2016-08-17] MEDS: methylPREDNISolone INJ 125 MG/2 ML VIAL (J2930) IV SCH ×5 (00:07→21:31)
[2016-08-17] MEDS: SUCRALFATE SUSP 1GM/10ML UD PO SCH ×5 (00:07→23:54)
[2016-08-17] MEDS: ACETAMINOPHEN TAB 650MG DOSE (2X325MG) PO PRN ×3 (00:12→17:41)
[2016-08-17] MEDS: IPRATROPIUM 0.5MG/ALBUTEROL 2.5MG INH SOL UD 3ML (DUONEB)(J7620) NEB SCH ×6 (03:59→23:56)
[2016-08-17] MEDS: **hydrALAZINE** 10 MG TAB PO SCH ×4 (05:55→23:51)
[2016-08-17] MEDS: SLF 3 ML SYR IV SCH ×3 (05:56→21:31)
[2016-08-17 06:00] VITALS: BP 141/73
[2016-08-17 06:31] LABS: MEAN CORPUSCULAR HGB CONC 31.4 g/dl (32.0-36.5); MEAN CORPUSCULAR VOLUME 92.5 fl (80.0-96.0); RED CELL DISTRIBUTION WIDTH 13.8 % (11.5-14.5); WHITE BLOOD COUNT 7.4 K/mm3 (4.0-10.0)
[2016-08-17 06:33] LABS: CALCIUM LEVEL 9.1 MG/DL (8.8-10.2); CREATININE FOR GFR 1.39 MG/DL (0.55-1.02); GLOMERULAR FILTRATION RATE 40.3 (>45); POTASSIUM SERUM 3.8 MEQ/L (3.5-5.1)
[2016-08-17] MEDS: TIOTROPIUM INHALER/CAPSULE (SPIRIVA) INH SCH (08:03)
[2016-08-17] MEDS: BUDESONIDE 180MCG INHALER (PULMICORT FLEXHALER) INH SCH ×2 (08:03→20:03)
[2016-08-17] MEDS ORDERED: FUROSEMIDE 40 MG/4 ML VIAL (J1940) IV ONE ×2 (08:45→16:00)
[2016-08-17] MEDS: HumaLOG INSULIN (NovoLOG) PER UNIT SC SCH ×4 (09:11→21:30)
[2016-08-17] MEDS: amLODIPine 10 MG TAB PO SCH (09:13)
[2016-08-17] MEDS: FERROUS SULFATE 325MG TAB PO SCH (09:13)
[2016-08-17] MEDS: ENOXAPARIN 30 MG/0.3 ML SYR (J1650) SC SCH (09:13)
[2016-08-17] MEDS: PANTOPRAZOLE 40MG INJ (PROTONIX) (C9113) IV SCH (09:13)
[2016-08-17] MEDS: FOLIC ACID 1 MG TAB PO SCH (09:14)
[2016-08-17] MEDS: DOXYCYCLINE HYCLATE 100 MG TAB PO SCH ×2 (09:14→21:31)
[2016-08-17] MEDS: predniSONE 20 MG TAB PO SCH (09:14)
[2016-08-17] MEDS: ATORVASTATIN 10 MG TAB PO SCH (09:14)
[2016-08-17] MEDS: PREGABALIN 50 MG CAP (LYRICA) PO SCH ×2 (09:14→21:31)
[2016-08-17] MEDS: LEVEMIR (INSULIN DETEMIR) 1 UNITS/0.01ML SC SCH ×2 (09:15→21:30)
--- NOTE | 2016-08-17 10:09 | IPN ---
DATE: 08/17/2016 Patient is seen and examined at the bedside. Chart has been reviewed. The patient has no complaint of chest pain, pressure or tightness. Shortness of breath is improved with IV Solu-Medrol. She denies any lightheadedness or dizziness with ambulation. She continues to be hypoxic, requiring supplemental oxygen. Documented saturation 84% on room air and 79% with ambulation. VITALS: Temperature 97, pulse 94, respiratory rate 21, blood pressure 141/73, 92% on room air. GENERAL: Awake, alert, oriented to person, place and time. No use of respiratory accessory muscles. LUNGS: Diminished, prolonged expiration. Expiratory wheezing bilaterally. ABDOMEN: Obese, soft, nontender, nondistended. Positive bowel sounds. No rebound, guarding. No hepatosplenomegaly. EXTREMITIES: Positive pitting edema 2+. CBC and metabolic panel have been reviewed. ASSESSMENT AND PLAN: This is a 66-year-old female with history of chronic obstructive pulmonary disease (COPD) not on home oxygen, type 2 diabetes, hypertension, obesity, and polymyalgia rheumatica (PMR) who presented to the emergency room (ER) with acute onset of chest pain, atypical, epigastric, and substernal region described as achy, pleuritic, with shortness of breath and wheezing, without fever or chills. CT of the chest showed no pulmonary embolus (PE) or pneumonia with small pericardial effusion. Troponin unremarkable. Patient underwent upper gastrointestinal (GI) series which showed hiatal hernia, reflux disease, and a stomach polyp. The patient has been treated for COPD exacerbation with prolonged expiration, and wheezing. The patient was adamant about being discharged on Wednesday as she was afraid to lose her job on Wednesday; however, the patient did not remain stable on oral prednisone and required IV Solu-Medrol to be resumed. She has been on IV fluids due to acute kidney injury with a creatinine peak of 2.08 and current creatinine of 1.39 with IV fluids. The patient has since developed positive balance with pitting edema and severe hypoxia. The patient's glucose level has increased to 571 with IV Solu-Medrol requiring Levemir insulin subcutaneous to be instituted. CURRENT ISSUES: 1. Acute COPD exacerbation, improved today than yesterday. The patient is requiring supplemental oxygen and currently on Solu-Medrol 60 IV every 6 hours, nebulizer treatments every 4 and every 2 as needed. Not stable for discharge. 2. Acute hypoxic respiratory failure secondary to COPD exacerbation on supplemental oxygen and maximized on IV Solu-Medrol, nebulizer and supplemental oxygen. The patient has been started on inhaled steroids. Continue to monitor for now. Give one dose of IV Lasix due to positive balance. Monitor for worsening creatinine. 3. Acute renal failure. We have discontinued all nephrotoxins, peyjdatemqk-eqnixqzgjz-uisnlu (THUY) inhibitors. Improved with IV fluids; however, patient is edematous today with worsening hypoxia with saturations 79% with ambulation and 84% on room air at rest. 4. Hypertension. The patient's diuretics, ARB and THUY inhibitor have been discontinued currently and Norvasc and hydralazine titrated as required. 5. Steroid induced hyperglycemia/type 2 diabetes, uncontrolled. Currently on Levemir twice a day. We have increased the dose. Her A1/c is 6.9. Current uncontrolled glucose most likely secondary to Solu-Medrol. 6. Polymyalgia rheumatica (PMR). Has not been on steroids for 2 years. 7. Deep venous thrombosis (DVT) prophylaxis with Lovenox. DISPOSITION: Patient was afraid to lose her job and wanted to be discharged on Wednesday; however, due to her clinical decompensation requiring supplemental oxygen, worsening wheezing, and renal failure, the patient agreed to stay until she is clinically stable to be released. [facility]
[2016-08-17 10:11] LABS: MAGNESIUM LEVEL 2.3 MG/DL (1.8-2.4)
[2016-08-17 14:00] VITALS: BP 152/72
[2016-08-17 18:55] LABS: CREATININE FOR GFR 1.68 MG/DL (0.55-1.02); GLOMERULAR FILTRATION RATE 32.4 (>45); POTASSIUM SERUM 3.4 MEQ/L (3.5-5.1)
[2016-08-17] MEDS: VITAMIN B COMPLEX/VIT C CAP PO SCH (21:31)
[2016-08-17] MEDS: OMEGA-3 1050MG CAPSULE PO SCH (21:31)
[2016-08-17] MEDS: VITAMIN E 400 INTERNATIONAL UNITS CAP PO SCH (21:31)
[2016-08-17] MEDS: CitaloPRAM (CeleXA) 20 MG TAB PO SCH (21:31)
[2016-08-17] MEDS: VITAMIN D 1,000 INTERNATIONAL UNITS TABLET PO SCH (21:31)
[2016-08-17 22:00] VITALS: BP 142/70
[2016-08-18] MEDS: IPRATROPIUM 0.5MG/ALBUTEROL 2.5MG INH SOL UD 3ML (DUONEB)(J7620) NEB SCH ×6 (03:44→23:59)
[2016-08-18] MEDS: **hydrALAZINE** 10 MG TAB PO SCH ×3 (05:11→18:20)
[2016-08-18] MEDS: methylPREDNISolone INJ 125 MG/2 ML VIAL (J2930) IV SCH ×2 (05:14→09:59)
[2016-08-18] MEDS: SUCRALFATE SUSP 1GM/10ML UD PO SCH ×3 (05:14→18:20)
[2016-08-18] MEDS: SLF 3 ML SYR IV SCH ×3 (05:15→20:45)
[2016-08-18 06:00] VITALS: BP 156/98
[2016-08-18 06:23] LABS: MEAN CORPUSCULAR HEMOGLOBIN 29.7 pg (27.0-33.0); MEAN CORPUSCULAR HGB CONC 32.4 g/dl (32.0-36.5); MEAN CORPUSCULAR VOLUME 91.8 fl (80.0-96.0); RED CELL DISTRIBUTION WIDTH 13.9 % (11.5-14.5)
[2016-08-18 06:56] LABS: CALCIUM LEVEL 8.8 MG/DL (8.8-10.2); CREATININE FOR GFR 1.42 MG/DL (0.55-1.02); GLOMERULAR FILTRATION RATE 39.3 (>45); POTASSIUM SERUM 3.5 MEQ/L (3.5-5.1)
[2016-08-18] MEDS: TIOTROPIUM INHALER/CAPSULE (SPIRIVA) INH SCH (08:39)
[2016-08-18] MEDS: BUDESONIDE 180MCG INHALER (PULMICORT FLEXHALER) INH SCH ×2 (08:39→20:16)
[2016-08-18] MEDS: predniSONE 20 MG TAB PO SCH (09:00)
[2016-08-18] MEDS ORDERED: NS 500 ML IV ONE (09:15)
[2016-08-18] MEDS: LEVEMIR (INSULIN DETEMIR) 1 UNITS/0.01ML SC SCH ×2 (09:59→20:43)
[2016-08-18] MEDS: HumaLOG INSULIN (NovoLOG) PER UNIT SC SCH ×4 (09:59→20:49)
[2016-08-18] MEDS: guaiFENesin 200 MG TAB PO SCH ×2 (10:00→20:45)
[2016-08-18] MEDS: BENZONATATE 100 MG CAP PO SCH ×2 (10:00→20:44)
[2016-08-18] MEDS: ATORVASTATIN 10 MG TAB PO SCH (10:00)
[2016-08-18] MEDS: DOXYCYCLINE HYCLATE 100 MG TAB PO SCH ×2 (10:01→20:43)
[2016-08-18] MEDS: FERROUS SULFATE 325MG TAB PO SCH (10:01)
[2016-08-18] MEDS: amLODIPine 10 MG TAB PO SCH (10:01)
[2016-08-18] MEDS: FOLIC ACID 1 MG TAB PO SCH (10:01)
[2016-08-18] MEDS: PANTOPRAZOLE 40MG INJ (PROTONIX) (C9113) IV SCH (10:07)
[2016-08-18] MEDS: PREGABALIN 50 MG CAP (LYRICA) PO SCH ×2 (10:07→20:44)
[2016-08-18] MEDS: ENOXAPARIN 30 MG/0.3 ML SYR (J1650) SC SCH (10:11)
--- NOTE | 2016-08-18 12:21 | IPNPDOC ---
Text Note Date of Service The patient was seen on 08/18/16. NOTE Subjective: Patient is a 66 year old female with a PMHx of COPD, DM2, HTN, polymyalgia rheumatica who presented to the ED with SOB, wheezing and pleuritic chest pain. She was admitted for COPD exacerbation. Patient was seen and examined at the bedside. Clinically she notes that she has been having some pleuritic chest pain with coughs, she notes her breathing has improved. Objective: Vitals (See below) General: Lying in bed, no acute distress, comfortable, AAOx3 HEENT: NC, AT CVS: RRR, +S1S2 Lungs: Fair air entry b/l, + Expiratory wheezing Abdomen: Soft, ND, NT, +BSx4 Extremities: Trace LE edema, - Calf tenderness Assessment and plan: 1. Acute COPD exacerbation - Presented with SOB, wheezing and pleuritic chest pain - Physical today reveals mild expiratory wheezing - CTA chest 08/12: no PE, small pericardial effusion, unremarkable CT - c/w Solumedrol - will taper - c/w Duoneb, Doxycycline and supplemental oxygen - Will start anti-tussive medications 2. Acute hypoxic respiratory failure 2/2 COPD exacerbation and possibly fluid overload - Had an episode of volume overload while correcting LUZ; s/p Lasix - Physical with trace LE edema - CXR 08/16 with worsening vascular congestion + increasing airspace opacity in L base - will hold on diuretics at this time 3. Acute renal failure - likely 2/2 pre-renal etiology, less likely renal or post-renal - baseline cr of 0.9; currently at 1.42 - will give very israel IV fluid hydration for 500 cc only - will hold nephrotoxic medications 4. HTN - c/w Norvasc and hydralazine - will restart THUY/ ARB when LUZ resolves 5. Uncontrolled DM2 - likely 2/2 steroids - A1c of 6.9 - will continue to taper off steroids - c/w ISS and levemir while inpatient 6. Polymyalgia rheumatica - Has not been on steroids for 2 years 7. DVT prophylaxis - c/w Lovenox Disposition - Will clear for DC when breathing improves VS,Fishbone, I+O VS, Fishbone, I+O Laboratory Tests 08/17/16 18:13 Calcium Level 9.0 08/18/16 05:42 Calcium Level 8.8, Red Blood Count 3.41 L, Mean Corpuscular Volume 91.8, Mean Corpuscular Hemoglobin 29.7, Mean Corpuscular Hemoglobin Concent 32.4, Red Cell Distribution Width 13.9 Vital Signs Date Time Temp Pulse Resp B/P Pulse Ox O2 Delivery O2 Flow Rate FiO2 08/18/16 12:04 159/78 08/18/16 10:01 88 08/18/16 06:00 96.8 17 93 NIPPV (BIPAP/CPAP) 08/15/16 21:40 4.0 I&O- Last 24 Hours up to 6 AM 08/18/16 06:00 Intake Total 240 ml Output Total 2650 ml Balance -2410 ml CAMI MORENO MD Aug 18, 2016 12:21
[2016-08-18 14:00] VITALS: BP 167/79
[2016-08-18] MEDS: methylPREDNISolone INJ 40 MG/1 ML VIAL (J2920) IV SCH (18:20)
[2016-08-18] MEDS: VITAMIN B COMPLEX/VIT C CAP PO SCH (20:42)
[2016-08-18] MEDS: CitaloPRAM (CeleXA) 20 MG TAB PO SCH (20:43)
[2016-08-18] MEDS: VITAMIN E 400 INTERNATIONAL UNITS CAP PO SCH (20:44)
[2016-08-18] MEDS: OMEGA-3 1050MG CAPSULE PO SCH (20:45)
[2016-08-18] MEDS: VITAMIN D 1,000 INTERNATIONAL UNITS TABLET PO SCH (20:45)
[2016-08-18 22:00] VITALS: BP 165/82
[2016-08-19] MEDS: SUCRALFATE SUSP 1GM/10ML UD PO SCH ×5 (00:23→23:16)
[2016-08-19] MEDS: methylPREDNISolone INJ 40 MG/1 ML VIAL (J2920) IV SCH ×2 (00:23→14:33)
[2016-08-19] MEDS: IPRATROPIUM 0.5MG/ALBUTEROL 2.5MG INH SOL UD 3ML (DUONEB)(J7620) NEB SCH ×5 (03:52→19:55)
[2016-08-19] MEDS: **hydrALAZINE** 10 MG TAB PO SCH ×5 (05:36→23:15)
[2016-08-19] MEDS: SLF 3 ML SYR IV SCH ×3 (05:37→20:41)
[2016-08-19 06:00] VITALS: BP 148/71
[2016-08-19 06:30] LABS: MEAN CORPUSCULAR HEMOGLOBIN 29.6 pg (27.0-33.0); MEAN CORPUSCULAR HGB CONC 32.5 g/dl (32.0-36.5); MEAN CORPUSCULAR VOLUME 91.3 fl (80.0-96.0); WHITE BLOOD COUNT 8.7 K/mm3 (4.0-10.0)
[2016-08-19 06:32] LABS: CALCIUM LEVEL 8.9 MG/DL (8.8-10.2); CREATININE FOR GFR 1.25 MG/DL (0.55-1.02); GLOMERULAR FILTRATION RATE 45.5 (>45); POTASSIUM SERUM 3.4 MEQ/L (3.5-5.1)
[2016-08-19] MEDS: BUDESONIDE 180MCG INHALER (PULMICORT FLEXHALER) INH SCH ×2 (08:10→19:55)
[2016-08-19] MEDS: TIOTROPIUM INHALER/CAPSULE (SPIRIVA) INH SCH (08:10)
[2016-08-19] MEDS: LEVEMIR (INSULIN DETEMIR) 1 UNITS/0.01ML SC SCH ×2 (08:18→20:37)
[2016-08-19] MEDS ORDERED: predniSONE 20 MG TAB PO SCH (09:00)
[2016-08-19] MEDS ORDERED: NS 500 ML IV SCH (09:15)
[2016-08-19] MEDS: FOLIC ACID 1 MG TAB PO SCH (10:07)
[2016-08-19] MEDS: BENZONATATE 100 MG CAP PO SCH ×2 (10:07→20:38)
[2016-08-19] MEDS: ATORVASTATIN 10 MG TAB PO SCH (10:07)
[2016-08-19] MEDS: PANTOPRAZOLE 40MG INJ (PROTONIX) (C9113) IV SCH (10:07)
[2016-08-19] MEDS: FERROUS SULFATE 325MG TAB PO SCH (10:07)
[2016-08-19] MEDS: PREGABALIN 50 MG CAP (LYRICA) PO SCH ×2 (10:07→20:38)
[2016-08-19] MEDS: guaiFENesin 200 MG TAB PO SCH ×2 (10:07→20:37)
[2016-08-19] MEDS: amLODIPine 10 MG TAB PO SCH (10:08)
[2016-08-19] MEDS: ENOXAPARIN 30 MG/0.3 ML SYR (J1650) SC SCH (10:08)
[2016-08-19] MEDS: HumaLOG INSULIN (NovoLOG) PER UNIT SC SCH ×4 (10:08→20:37)
[2016-08-19] MEDS: DOXYCYCLINE HYCLATE 100 MG TAB PO SCH ×2 (10:08→20:38)
--- NOTE | 2016-08-19 13:05 | IPNPDOC ---
Text Note Date of Service The patient was seen on 08/19/16. NOTE Subjective: Patient is a 66 year old female with a PMHx of COPD, DM2, HTN, polymyalgia rheumatica who presented to the ED with SOB, wheezing and pleuritic chest pain. She was admitted for COPD exacerbation. Patient was seen and examined at the bedside. She notes improvement in her breathing, but still notes that it is not at baseline. Objective: Vitals (See below) General: Lying in bed, no acute distress, comfortable, AAOx3 HEENT: NC, AT CVS: RRR, +S1S2 Lungs: Fair air entry b/l, + Expiratory wheezing Abdomen: Soft, ND, NT, +BSx4 Extremities: Trace LE edema, - Calf tenderness Assessment and plan: 1. Acute COPD exacerbation - Presented with SOB, wheezing and pleuritic chest pain - Physical today reveals improvement in expiratory wheezing - CTA chest 08/12: no PE, small pericardial effusion, unremarkable CT - Will continue to taper Solumedrol - c/w Duoneb, supplemental oxygen and Doxycycline (Day #6) - c/w anti-tussive medications 2. Acute hypoxic respiratory failure 2/2 COPD exacerbation and possibly fluid overload - Had an episode of volume overload while correcting LUZ - Physical with trace LE edema - CXR 08/16 with worsening vascular congestion + increasing airspace opacity in L base - s/p Lasix 3. Acute renal failure - likely 2/2 pre-renal etiology, less likely renal or post-renal - baseline cr of 0.9; currently at 1.42 - will hold nephrotoxic medications - will give very [place] IV fluid hydration 4. HTN - c/w Norvasc and hydralazine - will restart THUY/ ARB when LUZ resolves 5. Uncontrolled DM2 - likely 2/2 steroids - A1c of 6.9 - will continue to taper off steroids - c/w ISS and levemir while inpatient 6. Polymyalgia rheumatica - Has not been on steroids for 2 years 7. DVT prophylaxis - c/w Lovenox Disposition: - Will clear for DC when breathing improves VS,Fishbone, I+O VS, Fishbone, I+O Laboratory Tests 08/19/16 06:06 Calcium Level 8.9, Red Blood Count 3.27 L, Mean Corpuscular Volume 91.3, Mean Corpuscular Hemoglobin 29.6, Mean Corpuscular Hemoglobin Concent 32.5, Red Cell Distribution Width 14.0 Vital Signs Date Time Temp Pulse Resp B/P Pulse Ox O2 Delivery O2 Flow Rate FiO2 08/19/16 12:34 158/64 08/19/16 06:00 96.6 69 18 95 Room Air 08/18/16 23:59 2.0 I&O- Last 24 Hours up to 6 AM 08/19/16 05:59 Intake Total 840 ml Output Total 1750 ml Balance -910 ml CAMI MORENO MD Aug 19, 2016 13:05
[2016-08-19 14:00] VITALS: BP 144/67
[2016-08-19] MEDS: VITAMIN D 1,000 INTERNATIONAL UNITS TABLET PO SCH (20:38)
[2016-08-19] MEDS: VITAMIN E 400 INTERNATIONAL UNITS CAP PO SCH (20:38)
[2016-08-19] MEDS: VITAMIN B COMPLEX/VIT C CAP PO SCH (20:38)
[2016-08-19] MEDS: CitaloPRAM (CeleXA) 20 MG TAB PO SCH (20:38)
[2016-08-19] MEDS: OMEGA-3 1050MG CAPSULE PO SCH (20:38)
[2016-08-19 22:00] VITALS: BP 132/61
[2016-08-20] MEDS: IPRATROPIUM 0.5MG/ALBUTEROL 2.5MG INH SOL UD 3ML (DUONEB)(J7620) NEB SCH ×6 (00:59→20:31)
[2016-08-20] MEDS: methylPREDNISolone INJ 40 MG/1 ML VIAL (J2920) IV SCH (02:55)
[2016-08-20] MEDS: SLF 3 ML SYR IV SCH ×3 (05:44→21:11)
[2016-08-20] MEDS: SUCRALFATE SUSP 1GM/10ML UD PO SCH ×3 (05:44→17:51)
[2016-08-20] MEDS: **hydrALAZINE** 10 MG TAB PO SCH ×3 (05:45→17:52)
[2016-08-20 06:00] VITALS: BP 154/73
[2016-08-20 06:48] VITALS: BP 164/68
[2016-08-20 06:55] LABS: MEAN CORPUSCULAR HGB CONC 32.5 g/dl (32.0-36.5); MEAN CORPUSCULAR VOLUME 92.5 fl (80.0-96.0); RED CELL DISTRIBUTION WIDTH 14.2 % (11.5-14.5); WHITE BLOOD COUNT 10.9 K/mm3 (4.0-10.0)
[2016-08-20 07:08] LABS: CALCIUM LEVEL 8.8 MG/DL (8.8-10.2); CREATININE FOR GFR 1.12 MG/DL (0.55-1.02); GLOMERULAR FILTRATION RATE 51.7 (>45); POTASSIUM SERUM 3.1 MEQ/L (3.5-5.1)
[2016-08-20] MEDS ORDERED: POTASSIUM CHLORIDE 10 MEQ SR TABLET PO ONE (08:15)
[2016-08-20] MEDS: DOXYCYCLINE HYCLATE 100 MG TAB PO SCH ×2 (08:23→21:07)
[2016-08-20] MEDS: FOLIC ACID 1 MG TAB PO SCH (08:23)
[2016-08-20] MEDS: ATORVASTATIN 10 MG TAB PO SCH (08:23)
[2016-08-20] MEDS: guaiFENesin 200 MG TAB PO SCH ×2 (08:23→21:07)
[2016-08-20] MEDS: PANTOPRAZOLE 40MG INJ (PROTONIX) (C9113) IV SCH (08:23)
[2016-08-20] MEDS: BENZONATATE 100 MG CAP PO SCH ×2 (08:23→21:07)
[2016-08-20] MEDS: FERROUS SULFATE 325MG TAB PO SCH (08:23)
[2016-08-20] MEDS: HumaLOG INSULIN (NovoLOG) PER UNIT SC SCH ×4 (08:23→21:08)
[2016-08-20] MEDS: PREGABALIN 50 MG CAP (LYRICA) PO SCH ×2 (08:23→21:06)
[2016-08-20] MEDS: LEVEMIR (INSULIN DETEMIR) 1 UNITS/0.01ML SC SCH ×2 (08:24→21:08)
[2016-08-20] MEDS: ENOXAPARIN 30 MG/0.3 ML SYR (J1650) SC SCH (08:24)
[2016-08-20] MEDS: amLODIPine 10 MG TAB PO SCH (08:30)
[2016-08-20] MEDS: TIOTROPIUM INHALER/CAPSULE (SPIRIVA) INH SCH (08:35)
[2016-08-20] MEDS: BUDESONIDE 180MCG INHALER (PULMICORT FLEXHALER) INH SCH ×2 (08:35→20:31)
[2016-08-20] MEDS ORDERED: CALCIUM CARBONATE 500 MG CHEW U/D PO PRN (10:15)
[2016-08-20] MEDS: predniSONE 20 MG TAB PO SCH (10:43)
--- NOTE | 2016-08-20 13:26 | IPNPDOC ---
Text Note Date of Service The patient was seen on 08/20/16. NOTE Subjective: Patient is a 66 year old female with a PMHx of COPD, DM2, HTN, polymyalgia rheumatica who presented to the ED with SOB, wheezing and pleuritic chest pain. She was admitted for COPD exacerbation. Patient was seen and examined at the bedside. 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 At this time she notes her breathing has improved. Objective: Vitals (See below) General: Lying in bed, no acute distress, comfortable, AAOx3 HEENT: NC, AT CVS: RRR, +S1S2 Lungs: Fair air entry b/l, no wheezing noted Abdomen: Soft, ND, NT, +BSx4 Extremities: Trace LE edema, - Calf tenderness Assessment and plan: 1. Acute COPD exacerbation - Presented with SOB, wheezing and pleuritic chest pain - Physical today reveals no significant wheezing - CTA chest 08/12: no PE, small pericardial effusion, unremarkable CT - Will discontinue solumedrol and start prednisone - c/w Duoneb, supplemental oxygen and Doxycycline (Day #7) - c/w anti-tussive medications 2. Acute hypoxic respiratory failure 2/2 COPD exacerbation and possibly fluid overload - Had an episode of volume overload while correcting LUZ - Physical with trace LE edema - CXR 08/16 with worsening vascular congestion + increasing airspace opacity in L base - s/p Lasix 3. Acute renal failure - likely 2/2 pre-renal etiology, less likely renal or post-renal - baseline cr of 0.9; currently at 1.12 - will hold nephrotoxic medications - will give very [place] IV fluid hydration 4. HTN - c/w Norvasc and hydralazine - will restart THUY/ ARB when LUZ resolves 5. Uncontrolled DM2 - likely 2/2 steroids - A1c of 6.9 - will continue to taper off steroids - c/w ISS and levemir while inpatient 6. Polymyalgia rheumatica - Has not been on steroids for 2 years 7. DVT prophylaxis - c/w Lovenox Disposition: - Will likely DC tomorrow if breathing has improved VS,Fishbone, I+O VS, Fishbone, I+O Laboratory Tests 08/20/16 06:40 Calcium Level 8.8, Red Blood Count 3.58 L, Mean Corpuscular Volume 92.5, Mean Corpuscular Hemoglobin 30.0, Mean Corpuscular Hemoglobin Concent 32.5, Red Cell Distribution Width 14.2 Vital Signs Date Time Temp Pulse Resp B/P Pulse Ox O2 Delivery O2 Flow Rate FiO2 08/20/16 08:30 94 152/56 08/20/16 08:23 Room Air 08/20/16 06:48 96.7 20 91 08/20/16 06:00 1.0 I&O- Last 24 Hours up to 6 AM 08/20/16 06:00 Intake Total 2010 ml Output Total 1400 ml Balance 610 ml CAMI MORENO MD Aug 20, 2016 13:26
[2016-08-20 14:00] VITALS: BP 141/74
[2016-08-20] MEDS: VITAMIN D 1,000 INTERNATIONAL UNITS TABLET PO SCH (21:06)
[2016-08-20] MEDS: OMEGA-3 1050MG CAPSULE PO SCH (21:06)
[2016-08-20] MEDS: VITAMIN E 400 INTERNATIONAL UNITS CAP PO SCH (21:06)
[2016-08-20] MEDS: CitaloPRAM (CeleXA) 20 MG TAB PO SCH (21:07)
[2016-08-20] MEDS: VITAMIN B COMPLEX/VIT C CAP PO SCH (21:07)
[2016-08-20 22:00] VITALS: BP 128/74
[2016-08-21] MEDS: SUCRALFATE SUSP 1GM/10ML UD PO SCH ×3 (00:09→12:18)
[2016-08-21] MEDS: IPRATROPIUM 0.5MG/ALBUTEROL 2.5MG INH SOL UD 3ML (DUONEB)(J7620) NEB SCH ×4 (00:13→11:17)
[2016-08-21] MEDS: **hydrALAZINE** 10 MG TAB PO SCH ×3 (05:21→12:18)
[2016-08-21] MEDS: SLF 3 ML SYR IV SCH (05:35)
[2016-08-21 06:00] VITALS: BP 137/75
[2016-08-21] MEDS: TIOTROPIUM INHALER/CAPSULE (SPIRIVA) INH SCH (08:08)
[2016-08-21] MEDS: BUDESONIDE 180MCG INHALER (PULMICORT FLEXHALER) INH SCH (08:08)
[2016-08-21] MEDS: DOXYCYCLINE HYCLATE 100 MG TAB PO SCH (08:41)
[2016-08-21] MEDS: BENZONATATE 100 MG CAP PO SCH (08:41)
[2016-08-21] MEDS: PREGABALIN 50 MG CAP (LYRICA) PO SCH (08:41)
[2016-08-21] MEDS: FERROUS SULFATE 325MG TAB PO SCH (08:42)
[2016-08-21] MEDS: HumaLOG INSULIN (NovoLOG) PER UNIT SC SCH ×2 (08:42→12:18)
[2016-08-21] MEDS: guaiFENesin 200 MG TAB PO SCH (08:42)
[2016-08-21] MEDS: predniSONE 20 MG TAB PO SCH (08:42)
[2016-08-21] MEDS: FOLIC ACID 1 MG TAB PO SCH (08:42)
[2016-08-21] MEDS: PANTOPRAZOLE 40MG INJ (PROTONIX) (C9113) IV SCH (08:42)
[2016-08-21] MEDS: ATORVASTATIN 10 MG TAB PO SCH (08:42)
[2016-08-21] MEDS: ENOXAPARIN 30 MG/0.3 ML SYR (J1650) SC SCH (08:43)
[2016-08-21] MEDS: LEVEMIR (INSULIN DETEMIR) 1 UNITS/0.01ML SC SCH (08:43)
[2016-08-21] MEDS: amLODIPine 10 MG TAB PO SCH (08:52)
[2016-08-21 09:11] LABS: ALBUMIN 2.9 GM/DL (3.2-5.2); ALBUMIN/GLOBULIN RATIO 0.97 (1.00-1.93); BILIRUBIN,TOTAL 0.4 MG/DL (0.2-1.0); CALCIUM LEVEL 8.8 MG/DL (8.8-10.2); CREATININE FOR GFR 1.09 MG/DL (0.55-1.02); GLOMERULAR FILTRATION RATE 53.3 (>45); POTASSIUM SERUM 3.1 MEQ/L (3.5-5.1); TOTAL PROTEIN 5.9 GM/DL (6.4-8.2)
[2016-08-21 09:41] LABS: MEAN CORPUSCULAR HEMOGLOBIN 29.6 pg (27.0-33.0); MEAN CORPUSCULAR HGB CONC 32.3 g/dl (32.0-36.5); MEAN CORPUSCULAR VOLUME 91.6 fl (80.0-96.0); PLATELET COUNT, AUTOMATED 181 k/mm3 (150-450); RED CELL DISTRIBUTION WIDTH 14.1 % (11.5-14.5); WHITE BLOOD COUNT 13.1 K/mm3 (4.0-10.0)
[2016-08-21 09:56] LABS: DIFF SLIDE NUMBER 121
[2016-08-21 09:57] LABS: NUCLEATED RED BLOOD CELL 2 % (0-0)
[2016-08-21] MEDS ORDERED: POTASSIUM CHLORIDE 10 MEQ SR TABLET PO ONE (12:00)
[2016-08-21 12:18] VITALS: BP 156/62
--- NOTE | 2016-08-21 15:20 | DSES ---
DATE OF ADMISSION: 08/14/2016 DATE OF DISCHARGE: 08/21/2016 ATTENDING PHYSICIAN: Dr. Isac Dash, Dr. Nesha Lozoya DISCHARGING PHYSICIAN: Dr. Isac Dash PRIMARY CARE PHYSICIAN: Royal Duran REFERRING PHYSICIAN: None. CONSULTING PHYSICIANS: None. CONDITION ON DISCHARGE: Stable. FINAL DIAGNOSIS: Acute chronic obstructive pulmonary disease (COPD) exacerbation. PROCEDURES: None. HISTORY OF PRESENT ILLNESS: The patient is a 66-year-old female with a past medical history of COPD, diabetes mellitus type 2, hypertension, polymyalgia rheumatica, who presented to the emergency room with a chief complaint of shortness of breath, wheezing, and pleuritic chest pain. She was admitted for COPD exacerbation. HOSPITAL COURSE: 1. Acute COPD exacerbation with shortness of breath, wheezing, and pleuritic chest pain. Initially, the patient had wheezing significantly in her bilateral lung gerber; however, throughout her hospital course, her wheezing has improved. CT angiogram on 08/12/2016 revealed no pulmonary embolism, small pericardial effusion, unremarkable CT. She was started on Solu-Medrol and then was eventually transitioned to prednisone orally. She was put on DuoNeb and supplemental oxygen, and she received a 7-day course of doxycycline. 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 2. Acute hypoxic respiratory failure, likely secondary to COPD exacerbation and possible fluid overload. She had an episode of volume overload after she was corrected with IV fluids for acute kidney injury. Physical revealed trace lower extremity edema. Chest x-ray on 08/16/2016 showed worsening vascular congestion and increased air space opacity in the left lung base. She received a dose of Lasix IV. 3. Acute renal failure, likely secondary to prerenal etiology, less likely secondary to renal or post renal etiology. Baseline creatinine 0.9 and currently 1.12. Nephrotoxic medications were held and she was continued with IV fluid hydration initially. 4. Hypertension. Continue with Norvasc and hydralazine. 5. Uncontrolled diabetes type 2, likely secondary to steroids. A1/c is 6.9. We will continue to taper off steroids. As an inpatient, she will be on insulin sliding scale and Levemir and as an outpatient she will be transitioned back to her home regimen. 6. Polymyalgia rheumatica. She has not been on steroids for the last 2 years. 7. Deep vein thrombosis (DVT) prophylaxis. Continue with Lovenox. DISCHARGE MEDICATIONS: The patient has been discharged on the following medications: - vitamin C 500 mg by mouth at night - atorvastatin 10 mg by mouth daily - vitamin B complex one tablet by mouth at night - vitamin H 1000 mcg by mouth at night - vitamin D 1000 units by mouth at night - citalopram 20 mg by mouth at night - ferrous sulfate 325 mg by mouth daily - fish oil 1000 mg by mouth at night - folic acid 1 mg by mouth daily - magnesium oxide 500 mg by mouth daily - pioglitazone 30 mg by mouth at night - pregabalin 50 mg by mouth twice a day - pyridoxine 200 mg by mouth at night - omeprazole 20 mg by mouth at night - rizatriptan 10 mg by mouth as needed for migraines - vitamin E 400 units by mouth at night New medication: - amlodipine 10 mg by mouth daily - glipizide 10 mg by mouth daily - hydralazine 10 mg by mouth three times a day - Protonix 40 mg by mouth daily - prednisone 10 mg to be taken as directed - sucralfate 1 gram by mouth as directed DISCHARGE INSTRUCTIONS: The patient was advised to followup with her primary care provider and photography teacher in the next 7 days. She has been advised to call to confirm scheduled appointments. She has been advised to remain compliant with treatment and medications and return to the emergency room if she experiences any problems. Time spent on discharge: [address] [facility]
== END 2016-08-21 13:07 | disposition home or self-care (01) | DRG 190 ==
LOC: M ED 13:09 → M ED INP 18:19 → M PCU 08-13 15:36 → M MSPAV 08-14 09:39 → OBSVTOIN 08-14 11:00 → M MSPAV 08-16 17:00
PROVIDERS: ADMIT Internal Medicine; ATTEND Internal Medicine
DX: J44.1 Chronic obstructive pulmonary disease with (acute) exacerbation (principal); J96.01 Acute respiratory failure with hypoxia; N17.9 Acute kidney failure, unspecified; E11.65 Type 2 diabetes mellitus with hyperglycemia; I10 Essential (primary) hypertension; E87.70 Fluid overload, unspecified; K31.7 Polyp of stomach and duodenum; K21.9 Gastro-esophageal reflux disease without esophagitis; K44.9 Diaphragmatic hernia without obstruction or gangrene; I45.10 Unspecified right bundle-branch block; M35.3 Polymyalgia rheumatica; Z79.899 Other long term (current) drug therapy; Z85.820 Personal history of malignant melanoma of skin; Z87.891 Personal history of nicotine dependence; Z83.6 Family history of other diseases of the respiratory system; Z88.0 Allergy status to penicillin; Z88.5 Allergy status to narcotic agent; Z79.84 Long term (current) use of oral hypoglycemic drugs

== ENCOUNTER 2018-04-08 12:13 | Inpatient (IN) | payer OTHER, MEDICARE ==
[2018-04-08 13:05] LABS: BASO % 0.1 % (0.0-1.0); HEMATOCRIT 37.7 % (36.0-47.0); HEMOGLOBIN 12.3 g/dl (12.0-15.5); IMMATURE GRANULOCYTE % 0.5 % (0-3.0); LYMPH # 0.9 10^3/uL (1.5-4.5); LYMPH % 9.5 % (24.0-44.0); MEAN CORPUSCULAR HEMOGLOBIN 30.9 pg (27.0-33.0); MEAN CORPUSCULAR HGB CONC 32.6 g/dl (32.0-36.5); MEAN CORPUSCULAR VOLUME 94.7 fl (80.0-96.0); MONO # 0.6 10^3/uL (0.0-0.8); MONO % 6.2 % (0.0-5.0); NEUTROPHILS # 8.3 10^3/uL (1.8-7.7); NEUTROPHILS % 83.7 % (36.0-66.0); PLATELET COUNT, AUTOMATED 220 10^3/uL (150-450); RED BLOOD COUNT 3.98 10^6/uL (4.00-5.40); RED CELL DISTRIBUTION WIDTH 13.2 % (11.5-14.5); WHITE BLOOD COUNT 9.9 10^3/uL (4.0-10.0)
[2018-04-08] MEDS: HumuLIN R (REGULAR) INSULIN (NovoLIN R) **100U/ML** PER UNIT IV (13:14)
[2018-04-08] MEDS: NS 1,000 ML IV ×5 (13:14→23:57)
[2018-04-08 13:19] LABS: VENOUS BASE EXCESS -1.4 (-2.0-2.0); VENOUS O2 SATURATION 86.9 % (60.0-80.0); VENOUS PARTIAL PRESSURE CO2 43.1 mmHg (38.0-50.0); VENOUS PARTIAL PRESSURE O2 53.5 mmHg (30.0-50.0); VENOUS PH 7.364 UNITS (7.330-7.430); VENOUS STANDARD HCO3 23.1 MEQ/L; VENOUS TOTAL CO2 25.3 MEQ/L (24.0-28.0)
[2018-04-08 13:22] LABS: INR 1.04; PROTHROMBIN TIME 13.7 SECONDS (12.1-14.4)
[2018-04-08 13:37] LABS: ACETONE/KETONE 4.98 MG/DL (<2.81); ALBUMIN 3.6 GM/DL (3.2-5.2); ALKALINE PHOSPHATASE 86 U/L (45-117); ALT/SGPT 27 U/L (12-78); ANION GAP 14 MEQ/L (8-16); AST/SGOT 17 U/L (7-37); BILIRUBIN,DIRECT 0.2 MG/DL (0.0-0.2); BILIRUBIN,TOTAL 0.5 MG/DL (0.2-1.0); BLOOD UREA NITROGEN 44 MG/DL (7-18); CALCIUM LEVEL 8.7 MG/DL (8.8-10.2); CARBON DIOXIDE LEVEL 23 MEQ/L (21-32); CHLORIDE LEVEL 83 MEQ/L (98-107); CPK CREATINE PHOSPHOKINASE 184 U/L (26-192); CREATININE FOR GFR 2.03 MG/DL (0.55-1.30); GLOMERULAR FILTRATION RATE 25.9 (>45); GLUCOSE, FASTING 973 MG/DL (70-100); LIPASE 143 U/L (73-393); MAGNESIUM LEVEL 2.3 MG/DL (1.8-2.4); MB/CK RELATIVE INDEX 0.76 (< OR =4); NT-PRO BNP 609 PG/ML (<125); PHOSPHORUS LEVEL 3.4 MG/DL (2.5-4.9); POTASSIUM SERUM 4.7 MEQ/L (3.5-5.1); SODIUM LEVEL 120 MEQ/L (136-145); TOTAL PROTEIN 7.6 GM/DL (6.4-8.2); TROPONIN I < 0.02 NG/ML (< 0.10)
[2018-04-08 13:59] LABS: ESTIMATED AVERAGE GLUCOSE 260 MG/DL (60-110); HEMOGLOBIN A1c 10.7 %
[2018-04-08] MEDS: INSULIN HUMAN REGULAR 100 UNITS in NS 99 ML IV ×3 (13:59→23:57)
[2018-04-08] MEDS ORDERED: INSULIN HUMAN REGULAR 100 UNITS in NS 99 ML IV (14:00)
[2018-04-08 14:30] LABS: OSMOLALITY SERUM 329 MOSM/KG (280-301)
[2018-04-08] MEDS ORDERED: ONDANSETRON 4MG/2ML VIAL (J2405) IV (14:30)
[2018-04-08] MEDS ORDERED: INSULIN IV RATE CHANGE DOCUMENTATION ML/HR XX ×2 (14:30→16:00)
[2018-04-08 14:59] LABS: KETONE, URINE AUTO RFX NEGATIVE (NEGATIVE); NITRITE, URINE AUTO RFX NEGATIVE (NEGATIVE); RBC, URINE AUTO RFX 5 /HPF (0-3); SPECIFIC GRAVITY UR AUTO RFX 1.015 (1.002-1.035); SQUAM EPITHELIAL CELL UR AURFX 1 /HPF (0-6)
[2018-04-08 15:03] LABS: LEUKOCYTE ESTERASE UR AUTO RFX 2+ (NEGATIVE); WBC, URINE AUTO RFX 11 /HPF (0-3)
[2018-04-08] MEDS ORDERED: IPRATROPIUM 0.5MG/ALBUTEROL 2.5MG INH SOL UD 3ML (DUONEB)(J7620) NEB (15:15)
[2018-04-08 15:31] LABS: BEDSIDE GLUCOSE > 600 MG/DL (80-115)
[2018-04-08 15:31] LABS: BEDSIDE GLUCOSE > 600 MG/DL (80-115)
[2018-04-08 15:31] LABS: BEDSIDE GLUCOSE > 600 MG/DL (80-115)
[2018-04-08 16:02] LABS: BEDSIDE GLUCOSE 503 MG/DL (80-115)
[2018-04-08] MEDS: predniSONE 20 MG TAB PO (16:12)
[2018-04-08] MEDS: LevoFLOXacin 500 MG TABLET PO (16:21)
[2018-04-08 16:44] LABS: ANION GAP 12 MEQ/L (8-16); BEDSIDE GLUCOSE CONFIRMATION 475 MG/DL (LESS THAN 200); BLOOD UREA NITROGEN 44 MG/DL (7-18); CALCIUM LEVEL 9.1 MG/DL (8.8-10.2); CARBON DIOXIDE LEVEL 27 MEQ/L (21-32); CHLORIDE LEVEL 93 MEQ/L (98-107); CREATININE FOR GFR 1.89 MG/DL (0.55-1.30); GLOMERULAR FILTRATION RATE 28.2 (>45); GLUCOSE, FASTING 475 MG/DL (70-100); POTASSIUM SERUM 3.5 MEQ/L (3.5-5.1); SODIUM LEVEL 132 MEQ/L (136-145)
[2018-04-08] MEDS: INSULIN IV RATE CHANGE DOCUMENTATION ML/HR XX ×5 (17:02→23:54)
[2018-04-08 17:04] LABS: BEDSIDE GLUCOSE 399 MG/DL (80-115)
[2018-04-08 18:06] LABS: BEDSIDE GLUCOSE 414 MG/DL (80-115)
[2018-04-08] MEDS: IPRATROPIUM 0.5MG/ALBUTEROL 2.5MG INH SOL UD 3ML (DUONEB)(J7620) NEB ×2 (19:56→23:49)
[2018-04-08 20:05] LABS: BEDSIDE GLUCOSE 387 MG/DL (80-115)
[2018-04-08 20:36] LABS: ANION GAP 9 MEQ/L (8-16); BLOOD UREA NITROGEN 40 MG/DL (7-18); CALCIUM LEVEL 8.8 MG/DL (8.8-10.2); CARBON DIOXIDE LEVEL 27 MEQ/L (21-32); CHLORIDE LEVEL 99 MEQ/L (98-107); CREATININE FOR GFR 1.58 MG/DL (0.55-1.30); GLOMERULAR FILTRATION RATE 34.6 (>45); GLUCOSE, FASTING 355 MG/DL (70-100); POTASSIUM SERUM 3.9 MEQ/L (3.5-5.1); SODIUM LEVEL 135 MEQ/L (136-145)
[2018-04-08] MEDS: VITAMIN B COMPLEX/VIT C CAP PO (21:11)
[2018-04-08] MEDS: VITAMIN D 1,000 INTERNATIONAL UNITS TABLET PO (21:11)
[2018-04-08] MEDS: VITAMIN E 400 INTERNATIONAL UNITS CAP PO (21:11)
[2018-04-08] MEDS: HEPARIN SOD (PORCINE) 5000 UNITS/ML VIAL SC (21:12)
[2018-04-08] MEDS: OMEGA-3 1000MG CAPSULE PO (21:12)
[2018-04-08] MEDS: PREGABALIN 100 MG CAP (LYRICA) PO (21:12)
[2018-04-08 22:05] LABS: BEDSIDE GLUCOSE 398 MG/DL (80-115)
[2018-04-08 23:52] LABS: BEDSIDE GLUCOSE 274 MG/DL (80-115)
[2018-04-09 00:39] LABS: ANION GAP 13 MEQ/L (8-16); BLOOD UREA NITROGEN 33 MG/DL (7-18); CALCIUM LEVEL 8.4 MG/DL (8.8-10.2); CARBON DIOXIDE LEVEL 23 MEQ/L (21-32); CHLORIDE LEVEL 101 MEQ/L (98-107); CREATININE FOR GFR 1.41 MG/DL (0.55-1.30); GLOMERULAR FILTRATION RATE 39.5 (>45); GLUCOSE, FASTING 272 MG/DL (70-100); POTASSIUM SERUM 3.7 MEQ/L (3.5-5.1); SODIUM LEVEL 137 MEQ/L (136-145)
[2018-04-09] MEDS: INSULIN IV RATE CHANGE DOCUMENTATION ML/HR XX ×3 (01:00→06:00)
[2018-04-09 01:08] LABS: BEDSIDE GLUCOSE 289 MG/DL (80-115)
[2018-04-09 03:05] LABS: BEDSIDE GLUCOSE 259 MG/DL (80-115)
[2018-04-09] MEDS: IPRATROPIUM 0.5MG/ALBUTEROL 2.5MG INH SOL UD 3ML (DUONEB)(J7620) NEB ×5 (04:25→20:26)
[2018-04-09 04:45] LABS: HEMATOCRIT 32.6 % (36.0-47.0); HEMOGLOBIN 10.8 g/dl (12.0-15.5); MEAN CORPUSCULAR HEMOGLOBIN 30.3 pg (27.0-33.0); MEAN CORPUSCULAR HGB CONC 33.1 g/dl (32.0-36.5); MEAN CORPUSCULAR VOLUME 91.3 fl (80.0-96.0); PLATELET COUNT, AUTOMATED 156 10^3/uL (150-450); RED BLOOD COUNT 3.57 10^6/uL (4.00-5.40); WHITE BLOOD COUNT 6.5 10^3/uL (4.0-10.0)
[2018-04-09 04:58] LABS: ANION GAP 7 MEQ/L (8-16); BLOOD UREA NITROGEN 33 MG/DL (7-18); CALCIUM LEVEL 8.2 MG/DL (8.8-10.2); CARBON DIOXIDE LEVEL 27 MEQ/L (21-32); CHLORIDE LEVEL 105 MEQ/L (98-107); CREATININE FOR GFR 1.31 MG/DL (0.55-1.30); GLUCOSE, FASTING 222 MG/DL (70-100); POTASSIUM SERUM 3.5 MEQ/L (3.5-5.1); SODIUM LEVEL 139 MEQ/L (136-145)
[2018-04-09] MEDS: D5W 1,000 ML IV (05:11)
[2018-04-09] MEDS: LevoFLOXacin 250 MG TABLET PO (05:11)
[2018-04-09] MEDS: HEPARIN SOD (PORCINE) 5000 UNITS/ML VIAL SC ×3 (05:11→20:54)
[2018-04-09 05:18] LABS: BEDSIDE GLUCOSE 184 MG/DL (80-115)
[2018-04-09 06:04] LABS: BEDSIDE GLUCOSE 185 MG/DL (80-115)
[2018-04-09 06:21] LABS: TROPONIN I < 0.02 NG/ML (< 0.10)
[2018-04-09] MEDS: HumaLOG INSULIN (NovoLOG) PER UNIT SC ×4 (07:30→20:54)
[2018-04-09] MEDS ORDERED: DEXTROSE 50% 50 ML SYRINGE IV (07:45)
[2018-04-09] MEDS ORDERED: GLUCAGON FOR INJ 1 MG VIAL (J1610) SC (07:45)
[2018-04-09] MEDS ORDERED: GLUCOSE 4 GM CHEW TABLET PO (07:45)
[2018-04-09] MEDS: LEVEMIR (INSULIN DETEMIR) 1 UNITS/0.01ML SC (08:04)
[2018-04-09 08:12] LABS: BEDSIDE GLUCOSE 164 MG/DL (80-115)
[2018-04-09] MEDS: PREGABALIN 100 MG CAP (LYRICA) PO ×2 (08:29→20:55)
[2018-04-09] MEDS: SITagliptin 50 MG TAB (JANUVIA) PO (08:29)
[2018-04-09] MEDS: FERROUS SULFATE 325MG TAB PO (08:29)
[2018-04-09] MEDS: NS 1,000 ML IV ×2 (08:29→20:56)
[2018-04-09] MEDS: CitaloPRAM (CeleXA) 20 MG TAB PO (08:30)
[2018-04-09] MEDS: FOLIC ACID 1 MG TAB PO (08:30)
[2018-04-09] MEDS: ATORVASTATIN 10 MG TAB PO (08:30)
[2018-04-09] MEDS: amLODIPine 10 MG TAB PO (08:30)
[2018-04-09 08:39] LABS: ANION GAP 10 MEQ/L (8-16); BLOOD UREA NITROGEN 30 MG/DL (7-18); CALCIUM LEVEL 8.3 MG/DL (8.8-10.2); CARBON DIOXIDE LEVEL 26 MEQ/L (21-32); CHLORIDE LEVEL 104 MEQ/L (98-107); GLOMERULAR FILTRATION RATE 47.6 (>45); GLUCOSE, FASTING 161 MG/DL (70-100); POTASSIUM SERUM 3.1 MEQ/L (3.5-5.1); SODIUM LEVEL 140 MEQ/L (136-145)
[2018-04-09 10:29] LABS: BEDSIDE GLUCOSE 243 MG/DL (80-115)
[2018-04-09] MEDS: POTASSIUM CHLORIDE 10 MEQ SR TABLET PO ×2 (10:29→14:25)
[2018-04-09 11:52] LABS: BEDSIDE GLUCOSE 275 MG/DL (80-115)
[2018-04-09 13:03] LABS: MAGNESIUM LEVEL 2.2 MG/DL (1.8-2.4)
[2018-04-09 17:11] LABS: BEDSIDE GLUCOSE 439 MG/DL (80-115)
[2018-04-09 20:43] LABS: BEDSIDE GLUCOSE 440 MG/DL (80-115)
[2018-04-09] MEDS: VITAMIN E 400 INTERNATIONAL UNITS CAP PO (20:54)
[2018-04-09] MEDS: VITAMIN D 1,000 INTERNATIONAL UNITS TABLET PO (20:54)
[2018-04-09] MEDS: OMEGA-3 1000MG CAPSULE PO (20:55)
[2018-04-09] MEDS: VITAMIN B COMPLEX/VIT C CAP PO (20:55)
[2018-04-10] MEDS: LevoFLOXacin 250 MG TABLET PO (06:14)
[2018-04-10] MEDS: HEPARIN SOD (PORCINE) 5000 UNITS/ML VIAL SC ×3 (06:14→20:43)
[2018-04-10] MEDS ORDERED: NYSTATIN 500,000 U/5 ML SUSP UDC PO (06:30)
[2018-04-10 06:47] LABS: HEMATOCRIT 34.4 % (36.0-47.0); HEMOGLOBIN 11.2 g/dl (12.0-15.5); MEAN CORPUSCULAR HEMOGLOBIN 30.8 pg (27.0-33.0); MEAN CORPUSCULAR HGB CONC 32.6 g/dl (32.0-36.5); MEAN CORPUSCULAR VOLUME 94.5 fl (80.0-96.0); PLATELET COUNT, AUTOMATED 132 10^3/uL (150-450); RED BLOOD COUNT 3.64 10^6/uL (4.00-5.40); RED CELL DISTRIBUTION WIDTH 13.6 % (11.5-14.5)
[2018-04-10] MEDS: NYSTATIN 500,000 U/5 ML SUSP UDC SSP ×3 (06:50→17:07)
[2018-04-10] MEDS: IPRATROPIUM 0.5MG/ALBUTEROL 2.5MG INH SOL UD 3ML (DUONEB)(J7620) NEB ×4 (07:13→21:27)
[2018-04-10 07:17] LABS: ANION GAP 6 MEQ/L (8-16); BLOOD UREA NITROGEN 20 MG/DL (7-18); CALCIUM LEVEL 8.4 MG/DL (8.8-10.2); CARBON DIOXIDE LEVEL 26 MEQ/L (21-32); CHLORIDE LEVEL 108 MEQ/L (98-107); CREATININE FOR GFR 1.17 MG/DL (0.55-1.30); GLUCOSE, FASTING 334 MG/DL (70-100); SODIUM LEVEL 140 MEQ/L (136-145)
[2018-04-10] MEDS: HumaLOG INSULIN (NovoLOG) PER UNIT SC ×4 (08:34→20:51)
[2018-04-10] MEDS: LEVEMIR (INSULIN DETEMIR) 1 UNITS/0.01ML SC (08:35)
[2018-04-10] MEDS: PREGABALIN 100 MG CAP (LYRICA) PO ×2 (08:49→20:44)
[2018-04-10] MEDS: SITagliptin 50 MG TAB (JANUVIA) PO (08:49)
[2018-04-10] MEDS: amLODIPine 10 MG TAB PO (08:49)
[2018-04-10] MEDS: CitaloPRAM (CeleXA) 20 MG TAB PO (08:50)
[2018-04-10] MEDS: FOLIC ACID 1 MG TAB PO (08:50)
[2018-04-10] MEDS: ATORVASTATIN 10 MG TAB PO (08:50)
[2018-04-10] MEDS: FERROUS SULFATE 325MG TAB PO (08:50)
[2018-04-10 12:31] LABS: BEDSIDE GLUCOSE 294 MG/DL (80-115)
[2018-04-10] MEDS: METHOCARBAMOL 750 MG TAB PO ×2 (16:13→20:44)
[2018-04-10 16:53] LABS: BEDSIDE GLUCOSE 281 MG/DL (80-115)
[2018-04-10] MEDS: ACETAMINOPHEN TAB 650MG DOSE (2X325MG) PO (18:13)
[2018-04-10] MEDS: OMEGA-3 1000MG CAPSULE PO (20:44)
[2018-04-10] MEDS: VITAMIN B COMPLEX/VIT C CAP PO (20:44)
[2018-04-10] MEDS: SLF 3 ML SYR IV (20:44)
[2018-04-10] MEDS: VITAMIN D 1,000 INTERNATIONAL UNITS TABLET PO (20:44)
[2018-04-10] MEDS: VITAMIN E 400 INTERNATIONAL UNITS CAP PO (20:44)
[2018-04-10 20:51] LABS: BEDSIDE GLUCOSE 258 MG/DL (80-115)
[2018-04-11] MEDS: HEPARIN SOD (PORCINE) 5000 UNITS/ML VIAL SC ×3 (06:24→21:43)
[2018-04-11] MEDS: LevoFLOXacin 250 MG TABLET PO (06:25)
[2018-04-11] MEDS: NYSTATIN 500,000 U/5 ML SUSP UDC SSP ×5 (06:25→23:24)
[2018-04-11] MEDS: SLF 3 ML SYR IV ×4 (06:25→21:43)
[2018-04-11 07:18] LABS: HEMATOCRIT 34.4 % (36.0-47.0); HEMOGLOBIN 11.1 g/dl (12.0-15.5); MEAN CORPUSCULAR HEMOGLOBIN 30.6 pg (27.0-33.0); MEAN CORPUSCULAR HGB CONC 32.3 g/dl (32.0-36.5); MEAN CORPUSCULAR VOLUME 94.8 fl (80.0-96.0); PLATELET COUNT, AUTOMATED 138 10^3/uL (150-450); RED BLOOD COUNT 3.63 10^6/uL (4.00-5.40); RED CELL DISTRIBUTION WIDTH 13.5 % (11.5-14.5); WHITE BLOOD COUNT 6.9 10^3/uL (4.0-10.0)
[2018-04-11 07:39] LABS: ANION GAP 7 MEQ/L (8-16); BLOOD UREA NITROGEN 14 MG/DL (7-18); CALCIUM LEVEL 8.1 MG/DL (8.8-10.2); CARBON DIOXIDE LEVEL 26 MEQ/L (21-32); CHLORIDE LEVEL 107 MEQ/L (98-107); CREATININE FOR GFR 1.06 MG/DL (0.55-1.30); GLOMERULAR FILTRATION RATE 54.9 (>45); GLUCOSE, FASTING 286 MG/DL (70-100); POTASSIUM SERUM 3.8 MEQ/L (3.5-5.1); SODIUM LEVEL 140 MEQ/L (136-145)
[2018-04-11] MEDS: IPRATROPIUM 0.5MG/ALBUTEROL 2.5MG INH SOL UD 3ML (DUONEB)(J7620) NEB ×6 (08:26→23:31)
[2018-04-11] MEDS: LEVEMIR (INSULIN DETEMIR) 1 UNITS/0.01ML SC (08:50)
[2018-04-11] MEDS: ATORVASTATIN 10 MG TAB PO (08:52)
[2018-04-11] MEDS: HumaLOG INSULIN (NovoLOG) PER UNIT SC ×4 (08:52→21:43)
[2018-04-11] MEDS: PREGABALIN 100 MG CAP (LYRICA) PO ×2 (08:52→21:40)
[2018-04-11] MEDS: CitaloPRAM (CeleXA) 20 MG TAB PO (08:52)
[2018-04-11] MEDS: METHOCARBAMOL 750 MG TAB PO ×3 (08:52→21:41)
[2018-04-11] MEDS: amLODIPine 10 MG TAB PO (08:53)
[2018-04-11] MEDS: FERROUS SULFATE 325MG TAB PO (08:53)
[2018-04-11] MEDS: FOLIC ACID 1 MG TAB PO (08:53)
[2018-04-11] MEDS: ACETAMINOPHEN TAB 650MG DOSE (2X325MG) PO ×2 (09:01→21:49)
[2018-04-11 12:05] LABS: BEDSIDE GLUCOSE 295 MG/DL (80-115)
[2018-04-11 16:52] LABS: BEDSIDE GLUCOSE 289 MG/DL (80-115)
[2018-04-11 21:14] LABS: BEDSIDE GLUCOSE 352 MG/DL (80-115)
[2018-04-11] MEDS: OMEGA-3 1000MG CAPSULE PO (21:41)
[2018-04-11] MEDS: VITAMIN D 1,000 INTERNATIONAL UNITS TABLET PO (21:41)
[2018-04-11] MEDS: VITAMIN B COMPLEX/VIT C CAP PO (21:41)
[2018-04-11] MEDS: VITAMIN E 400 INTERNATIONAL UNITS CAP PO (21:42)
[2018-04-12] MEDS: IPRATROPIUM 0.5MG/ALBUTEROL 2.5MG INH SOL UD 3ML (DUONEB)(J7620) NEB ×5 (03:34→19:45)
[2018-04-12] MEDS: HEPARIN SOD (PORCINE) 5000 UNITS/ML VIAL SC ×3 (05:57→22:00)
[2018-04-12] MEDS: SLF 3 ML SYR IV ×3 (05:57→22:00)
[2018-04-12] MEDS: NYSTATIN 500,000 U/5 ML SUSP UDC SSP ×3 (05:57→17:23)
[2018-04-12] MEDS: ACETAMINOPHEN TAB 650MG DOSE (2X325MG) PO ×2 (05:58→17:30)
[2018-04-12 07:10] LABS: HEMATOCRIT 33.5 % (36.0-47.0); HEMOGLOBIN 10.9 g/dl (12.0-15.5); MEAN CORPUSCULAR HGB CONC 32.5 g/dl (32.0-36.5); MEAN CORPUSCULAR VOLUME 95.2 fl (80.0-96.0); PLATELET COUNT, AUTOMATED 136 10^3/uL (150-450); RED BLOOD COUNT 3.52 10^6/uL (4.00-5.40); RED CELL DISTRIBUTION WIDTH 13.6 % (11.5-14.5); WHITE BLOOD COUNT 7.4 10^3/uL (4.0-10.0)
[2018-04-12 07:36] LABS: ANION GAP 7 MEQ/L (8-16); BLOOD UREA NITROGEN 12 MG/DL (7-18); CALCIUM LEVEL 8.1 MG/DL (8.8-10.2); CARBON DIOXIDE LEVEL 26 MEQ/L (21-32); CHLORIDE LEVEL 106 MEQ/L (98-107); CREATININE FOR GFR 0.99 MG/DL (0.55-1.30); GLOMERULAR FILTRATION RATE 59.4 (>45); GLUCOSE, FASTING 275 MG/DL (70-100); POTASSIUM SERUM 3.6 MEQ/L (3.5-5.1); SODIUM LEVEL 139 MEQ/L (136-145)
[2018-04-12] MEDS: LEVEMIR (INSULIN DETEMIR) 1 UNITS/0.01ML SC (08:46)
[2018-04-12] MEDS: amLODIPine 10 MG TAB PO (08:47)
[2018-04-12] MEDS: HumaLOG INSULIN (NovoLOG) PER UNIT SC ×4 (08:47→21:59)
[2018-04-12] MEDS: FOLIC ACID 1 MG TAB PO (08:47)
[2018-04-12] MEDS: ATORVASTATIN 10 MG TAB PO (08:47)
[2018-04-12] MEDS: METHOCARBAMOL 750 MG TAB PO ×3 (08:47→21:58)
[2018-04-12] MEDS: FERROUS SULFATE 325MG TAB PO (08:47)
[2018-04-12] MEDS: PREGABALIN 100 MG CAP (LYRICA) PO ×2 (08:47→21:58)
[2018-04-12] MEDS: CitaloPRAM (CeleXA) 20 MG TAB PO (08:48)
[2018-04-12] MEDS ORDERED: LEVEMIR (INSULIN DETEMIR) 1 UNITS/0.01ML SC (09:00)
[2018-04-12 11:55] LABS: BEDSIDE GLUCOSE 295 MG/DL (80-115)
[2018-04-12 16:50] LABS: BEDSIDE GLUCOSE 301 MG/DL (80-115)
[2018-04-12] MEDS: guaiFENesin ER 600 MG TAB PO (18:47)
[2018-04-12 21:10] LABS: BEDSIDE GLUCOSE 261 MG/DL (80-115)
[2018-04-12] MEDS: VITAMIN E 400 INTERNATIONAL UNITS CAP PO (21:58)
[2018-04-12] MEDS: VITAMIN B COMPLEX/VIT C CAP PO (21:58)
[2018-04-12] MEDS: VITAMIN D 1,000 INTERNATIONAL UNITS TABLET PO (21:58)
[2018-04-12] MEDS: OMEGA-3 1000MG CAPSULE PO (21:58)
[2018-04-13] MEDS: NYSTATIN 500,000 U/5 ML SUSP UDC SSP ×3 (00:26→12:37)
[2018-04-13] MEDS: IPRATROPIUM 0.5MG/ALBUTEROL 2.5MG INH SOL UD 3ML (DUONEB)(J7620) NEB ×5 (04:00→15:28)
[2018-04-13] MEDS: ACETAMINOPHEN TAB 650MG DOSE (2X325MG) PO (04:29)
[2018-04-13] MEDS: SLF 3 ML SYR IV ×2 (06:29→14:12)
[2018-04-13] MEDS: HEPARIN SOD (PORCINE) 5000 UNITS/ML VIAL SC ×2 (06:29→14:12)
[2018-04-13 07:52] LABS: HEMATOCRIT 34.2 % (36.0-47.0); MEAN CORPUSCULAR HEMOGLOBIN 30.7 pg (27.0-33.0); MEAN CORPUSCULAR HGB CONC 32.2 g/dl (32.0-36.5); MEAN CORPUSCULAR VOLUME 95.5 fl (80.0-96.0); PLATELET COUNT, AUTOMATED 139 10^3/uL (150-450); RED BLOOD COUNT 3.58 10^6/uL (4.00-5.40); RED CELL DISTRIBUTION WIDTH 13.5 % (11.5-14.5); WHITE BLOOD COUNT 7.4 10^3/uL (4.0-10.0)
[2018-04-13 07:56] LABS: ANION GAP 6 MEQ/L (8-16); BLOOD UREA NITROGEN 12 MG/DL (7-18); CARBON DIOXIDE LEVEL 26 MEQ/L (21-32); CHLORIDE LEVEL 108 MEQ/L (98-107); GLOMERULAR FILTRATION RATE > 60.0 (>45); GLUCOSE, FASTING 246 MG/DL (70-100); POTASSIUM SERUM 3.8 MEQ/L (3.5-5.1); SODIUM LEVEL 140 MEQ/L (136-145)
[2018-04-13] MEDS: FOLIC ACID 1 MG TAB PO (08:50)
[2018-04-13] MEDS: CitaloPRAM (CeleXA) 20 MG TAB PO (08:50)
[2018-04-13] MEDS: METHOCARBAMOL 750 MG TAB PO ×2 (08:50→15:51)
[2018-04-13] MEDS: amLODIPine 10 MG TAB PO (08:51)
[2018-04-13] MEDS: LEVEMIR (INSULIN DETEMIR) 1 UNITS/0.01ML SC (08:51)
[2018-04-13] MEDS: PREGABALIN 100 MG CAP (LYRICA) PO (08:51)
[2018-04-13] MEDS: FERROUS SULFATE 325MG TAB PO (08:51)
[2018-04-13] MEDS: ATORVASTATIN 10 MG TAB PO (08:51)
[2018-04-13] MEDS: HumaLOG INSULIN (NovoLOG) PER UNIT SC ×2 (08:52→12:38)
[2018-04-13 12:24] LABS: BEDSIDE GLUCOSE 310 MG/DL (80-115)
== END 2018-04-13 17:15 | disposition home health service (06) | DRG 638 ==
LOC: M PED 04-09 17:51 → M ED 12:13 → M ED INP 14:22 → M ICU 15:45
PROVIDERS: General Practice
DX: E11.00 Type 2 diabetes mellitus with hyperosmolarity without nonketotic hyperglycemic-hyperosmolar coma (NKHHC) (principal); Z68.41 Body mass index [BMI] 40.0-44.9, adult; N17.9 Acute kidney failure, unspecified; B37.0 Candidal stomatitis; E66.01 Morbid (severe) obesity due to excess calories; I10 Essential (primary) hypertension; J44.9 Chronic obstructive pulmonary disease, unspecified; M35.3 Polymyalgia rheumatica; K44.9 Diaphragmatic hernia without obstruction or gangrene; K21.9 Gastro-esophageal reflux disease without esophagitis; M54.41 Lumbago with sciatica, right side; E11.65 Type 2 diabetes mellitus with hyperglycemia; M54.42 Lumbago with sciatica, left side; Z85.820 Personal history of malignant melanoma of skin; Z87.891 Personal history of nicotine dependence; I95.1 Orthostatic hypotension; E86.0 Dehydration; E87.6 Hypokalemia; D50.9 Iron deficiency anemia, unspecified; Z91.14 Patient's other noncompliance with medication regimen; Z79.84 Long term (current) use of oral hypoglycemic drugs; Z79.899 Other long term (current) drug therapy; Z88.0 Allergy status to penicillin; Z88.5 Allergy status to narcotic agent; Z88.6 Allergy status to analgesic agent; Z88.8 Allergy status to other drugs, medicaments and biological substances

== ENCOUNTER → 2018-05-23 | Outpatient (CLI) | payer OTHER, MEDICARE | LOC: M WUC 17:39 | DX: M17.12 Unilateral primary osteoarthritis, left knee (principal) | CPT/HCPCS: 73564 ==

== ENCOUNTER 2018-09-06 12:50 | Inpatient (IN) | payer MEDICARE, OTHER ==
[~2018-09-06] VITALS: Ht 162.6 cm; Wt 113.6 kg
[~2018-09-06 12:50] MED LIST: ALCOPAD17 TOP; AMLO10TA5 PO; AMLO5TAB6 PO; ATOR1TAB19 PO; BIOT10008 PO; BLOOKIT21 XX; CITA20TA4 PO; CITA40TA4 PO; DOXY100C37 PO; DOXY100T2 PO; FARX1TAB3 PO; FERR1TAB8 PO; FISH1000 PO; FISH7.5C PO; FOLI1TAB11 PO; GLIM4TAB PO; GLIP10TA6 PO; GLUC1TES2 XX; HYDR10TAB PO; HYDR12.55 PO; IPRA0.00 IN; JANU100T PO; LANC30MI XX; LEVE1INJ5 SC; LOSA100T50 PO; LOSA100T8 PO; MAGN500T2 PO; MUCI600T31 PO; MUCI600T37 PO; NOVOINJ3 SC; PANT40TA3 PO; PEN1MIS21 SC; PIOG1TAB37 PO; PRED10PA PO; PRED10TA2 PO; PRED20TA PO; PREG100CA PO; PREG50CA PO; RABE1TAB PO; RIZA10TA2 PO; SUCR1TA PO; TORS10TA3 PO; VITA100066 PO; VITA200T2 PO; VITA400C7 PO; VITA500T88 PO; VITATAB11 PO
[2018-09-06] MEDS ORDERED: IPRATROPIUM 0.5MG/ALBUTEROL 2.5MG INH SOL UD 3ML (DUONEB)(J7620) NEB ONE ×3 (13:15→16:45)
[2018-09-06 13:20] LABS: BASO % 0.5 % (0.0-1.0); EOS % 0.2 % (0.0-3.0); HEMATOCRIT 39.8 % (36.0-47.0); HEMOGLOBIN 13.4 g/dl (12.0-15.5); LYMPH # 1.5 10^3/uL (1.5-4.5); LYMPH % 36.4 % (24.0-44.0); MEAN CORPUSCULAR HEMOGLOBIN 30.3 pg (27.0-33.0); MEAN CORPUSCULAR HGB CONC 33.7 g/dl (32.0-36.5); MONO # 0.4 10^3/uL (0.0-0.8); MONO % 8.9 % (0.0-5.0); NEUTROPHILS # 2.2 10^3/uL (1.8-7.7); NEUTROPHILS % 53.5 % (36.0-66.0); PLATELET COUNT, AUTOMATED 143 10^3/uL (150-450); RED BLOOD COUNT 4.42 10^6/uL (4.00-5.40)
[2018-09-06 13:56] LABS: INFLUENZA A AMPLIFICATION POSITIVE (NEGATIVE); INFLUENZA B AMPLIFICATION NEGATIVE (NEGATIVE)
[2018-09-06 14:01] LABS: ALBUMIN 3.3 GM/DL (3.2-5.2); ALT/SGPT 38 U/L (12-78); BILIRUBIN,DIRECT 0.2 MG/DL (0.0-0.2); BILIRUBIN,TOTAL 0.5 MG/DL (0.2-1.0); BLOOD UREA NITROGEN 19 MG/DL (7-18); CALCIUM LEVEL 8.5 MG/DL (8.8-10.2); CARBON DIOXIDE LEVEL 25 MEQ/L (21-32); CHLORIDE LEVEL 96 MEQ/L (98-107); CK-MB VALUE MASS < 1.0 NG/ML (<3.6); CPK CREATINE PHOSPHOKINASE 43 U/L (26-192); CREATININE FOR GFR 1.19 MG/DL (0.55-1.30); FREE T4 1.27 NG/DL (0.76-1.46); GLOMERULAR FILTRATION RATE 47.9 (>45); GLUCOSE, FASTING 387 MG/DL (70-100); LIPASE 92 U/L (73-393); MB/CK RELATIVE INDEX 2.33 (< OR =4); POTASSIUM SERUM 3.2 MEQ/L (3.5-5.1); SODIUM LEVEL 134 MEQ/L (136-145); TOTAL PROTEIN 6.8 GM/DL (6.4-8.2); TROPONIN I < 0.02 NG/ML (< 0.10)
[2018-09-06] MEDS ORDERED: HumuLIN R (REGULAR) INSULIN (NovoLIN R) **100U/ML** PER UNIT IV STA (14:23)
[2018-09-06] MEDS ORDERED: POTASSIUM CHLORIDE 10 MEQ SR TABLET PO ONE (14:30)
--- NOTE | 2018-09-06 14:36 | REP ---
CHEST, TWO VIEWS: Two views of the chest are performed and compared to prior study of 10/07/2017. There is mild interstitial prominence, which is stable, in both lung bases. No acute infiltrate is seen. The heart is normal in size. Mediastinal silhouette is unchanged. Left shoulder prosthesis is noted. There are mild degenerative changes of the spine. IMPRESSION: No acute pulmonary disease, stable chronic findings. Electronically Signed by Evan Kern MD 09/07/2018 09:54 A
[2018-09-06] MEDS ORDERED: methylPREDNISolone INJ 125 MG/2 ML VIAL (J2930) IV ONE (15:45)
[2018-09-06] MEDS ORDERED: PREGABALIN 100 MG CAP (LYRICA) PO ONE (17:00)
[2018-09-06] MEDS ORDERED: METAL LOCK LOOP XX ONE (17:02)
[2018-09-06] MEDS ORDERED: VITA500055 PO (18:36)
[2018-09-06] MEDS ORDERED: MELO15TA28 PO (18:36)
[2018-09-06] MEDS ORDERED: IPRA0.00 INH (18:37)
[2018-09-06] MEDS ORDERED: LEVE1INJ5 SC (18:39)
[2018-09-06] MEDS ORDERED: INSUHUMDS SC (18:39)
[2018-09-06] MEDS ORDERED: DEXTROSE 50% 50 ML SYRINGE IV PRN (20:15)
[2018-09-06] MEDS ORDERED: GLUCOSE 4 GM CHEW TABLET PO PRN (20:15)
[2018-09-06] MEDS ORDERED: GLUCAGON FOR INJ 1 MG VIAL (J1610) SC PRN (20:15)
--- NOTE | 2018-09-06 20:49 | HPE ---
DATE OF ADMISSION: 09/06/2018 CHIEF COMPLAINT: General malaise, decreased appetite, weakness for about a week. HISTORY OF THE PRESENT ILLNESS: This is a 68-year-old female with a past medical history of chronic obstructive pulmonary disease (COPD), polymyalgia rheumatica, diabetes, who presents with a chief complaint of over a week of feeling general malaise, total body pain, decreased oral (p.o.) intake. Patient reports for the last week or so, she has generally felt unwell, and she has had total body pain. She has had difficulty tolerating a diet and has had significantly decreased appetite. She has also felt short of breath. She does have a history of COPD from heavy smoking but is not on home oxygen. He has been compliant with her home medications. No sick contacts. REVIEW OF SYSTEMS: Negative in 14 out of 14 systems except as noted above. PAST MEDICAL HISTORY: As noted above in history of the present illness. PAST SURGICAL HISTORY: The patient has a history of left shoulder surgery. MEDICATIONS: Patient's home medications are: - DuoNebs every 4 hours as needed for shortness of breath - vitamin B complex one tablet daily - citalopram 40 mg at bedtime - fish oil one capsule daily - rizatriptan 10 mg by mouth as needed for migraines - vitamin C 500 mg daily - biotin 1000 mcg daily - vitamin D 5000 units daily - detemir 55 units subcu daily - losartan one tablet daily - pyridoxine 200 mg daily - rabeprazole 20 mg at bedtime - ferrous sulfate 325 mg daily - folic acid 1 mg daily - Mucinex 600 mg twice a day as needed for congestion - meloxicam 15 mg by mouth nightly - Lyrica 1000 mg by mouth twice a day - torsemide 10 mg daily - vitamin E 400 units by mouth daily ALLERGIES: The patient is allergic to CODEINE, CYCLOBENZAPRINE, IBUPROFEN, PENICILLINS. FAMILY HISTORY: No significant family history. SOCIAL HISTORY: The patient is . She lives with her son and two daughters. She used to smoke heavily with three packs a day for 40 years but quit 17 years ago. 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 PHYSICAL EXAMINATION: On exam, currently in the ER, she is afebrile to 97.0, blood pressure is currently 135/60, heart rate of 108, saturating 92% on room air, respirations 24. In general, she appears unwell and fatigued. HEENT Exam: Oropharynx clear. Neck: Supple. Cardiovascular: Slightly tachycardic. No murmurs, rubs, or gallops. Lungs: The patient has some coarse breath sounds bilaterally with expiratory wheezing. No rales. Abdomen: Soft, nontender, nondistended. Positive bowel sounds. Extremities: No clubbing, cyanosis, edema. Neurologic: She is alert and oriented times three. Follows simple commands. No focal neurologic deficits. Musculoskeletal: She moves all extremities equally. Skin: Intact. Psych: Mood stable. LABORATORY: Reveals a creatinine of 1.19, potassium 3.2, sodium 134. CBC shows a white count of 4, hemoglobin 13.4, platelets of 143. She is flu A positive. IMAGING: The patient does have a chest x-ray that shows no acute pulmonary disease, stable chronic findings. ASSESSMENT AND PLAN: This is a 68-year-old female with a past medical history of chronic obstructive pulmonary disease, not on home oxygen, diabetes, who presents with a chief complaint of general malaise, weakness, found to have flu positive and COPD exacerbation. PROBLEMS: 1. Influenza A. The patient is positive for flu A. Will provide the patient with supportive care with oxygen supplementation as needed, nebulizers and IV fluids. We will encourage oral intake. 2. COPD exacerbation. Patient has mild COPD exacerbation with some expiratory wheezing, likely secondary to a trigger by the influenza A. We will put her on nebulizers (nebs) around the clock. I will put her on prednisone 60 mg daily with a sliding scale. She is currently maintaining her saturations and improved with DuoNeb and Solu-Medrol treatment in the ER. 3. History of diabetes. I am going to put her on Levemir 25 units daily. At home, she is on 55 units but given the decreased oral intake, I am going to give her a reduced dose for now, and she can likely have this up titrated as she tolerates more oral intake. We will also put her on a sliding scale. 4. History of hypertension. For now, I am going to hold her home antihypertensives given active infection, and these can be resumed as tolerated. 5. The patient is on subcu heparin for deep vein thrombosis (DVT) prophylaxis.
[2018-09-06] MEDS: HumaLOG INSULIN (NovoLOG) PER UNIT SC SCH (21:00)
[2018-09-06] MEDS: PREGABALIN 100 MG CAP (LYRICA) PO SCH (22:08)
[2018-09-06] MEDS: MELOXICAM (MOBIC) 7.5 MG TAB PO SCH (22:08)
[2018-09-06 22:25] VITALS: BP 145/66
[2018-09-06] MEDS: NS 1,000 ML IV SCH (22:37)
[2018-09-06] MEDS: ACETAMINOPHEN TAB 650MG DOSE (2X325MG) PO PRN (22:38)
[2018-09-06] MEDS ORDERED: HumaLOG INSULIN (NovoLOG) PER UNIT SC ONE (23:30)
[2018-09-07] MEDS ORDERED: HumaLOG INSULIN (NovoLOG) PER UNIT SC ONE (01:30)
[2018-09-07 02:00] VITALS: BP 153/66
[2018-09-07] MEDS: IPRATROPIUM 0.5MG/ALBUTEROL 2.5MG INH SOL UD 3ML (DUONEB)(J7620) NEB SCH ×2 (02:00→07:20)
[2018-09-07 05:54] LABS: HEMATOCRIT 36.7 % (36.0-47.0); HEMOGLOBIN 12.3 g/dl (12.0-15.5); MEAN CORPUSCULAR HEMOGLOBIN 29.6 pg (27.0-33.0); MEAN CORPUSCULAR HGB CONC 33.5 g/dl (32.0-36.5); MEAN CORPUSCULAR VOLUME 88.2 fl (80.0-96.0); PLATELET COUNT, AUTOMATED 155 10^3/uL (150-450); RED BLOOD COUNT 4.16 10^6/uL (4.00-5.40); WHITE BLOOD COUNT 5.1 10^3/uL (4.0-10.0)
[2018-09-07 06:00] VITALS: BP 134/77
[2018-09-07 06:21] LABS: CALCIUM LEVEL 8.1 MG/DL (8.8-10.2); CREATININE FOR GFR 1.33 MG/DL (0.55-1.30); GLOMERULAR FILTRATION RATE 42.1 (>45); POTASSIUM SERUM 4.4 MEQ/L (3.5-5.1)
[2018-09-07] MEDS: BUDESONIDE 0.5 MG/2 ML INHALATION SUSPENSION INH SCH ×2 (08:00→20:50)
[2018-09-07] MEDS: TIOTROPIUM INHALER/CAPSULE (SPIRIVA) INH SCH (08:00)
[2018-09-07] MEDS: PREGABALIN 100 MG CAP (LYRICA) PO SCH ×2 (08:37→21:45)
[2018-09-07] MEDS: VITAMIN E 400 INTERNATIONAL UNITS CAP PO SCH (08:37)
[2018-09-07] MEDS: FERROUS SULFATE 325MG TAB PO SCH (08:38)
[2018-09-07] MEDS: HumaLOG INSULIN (NovoLOG) PER UNIT SC SCH ×4 (08:38→22:31)
[2018-09-07] MEDS: FOLIC ACID 1 MG TAB PO SCH (08:38)
--- NOTE | 2018-09-07 08:53 | ECGEPIP ---
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
[2018-09-07] MEDS ORDERED: predniSONE 20 MG TAB PO SCH (09:00)
[2018-09-07] MEDS ORDERED: LEVEMIR (INSULIN DETEMIR) 1 UNITS/0.01ML SC SCH (09:00)
[2018-09-07] MEDS ORDERED: TORSEMIDE 10 MG TABLET PO SCH (09:00)
[2018-09-07] MEDS: HEPARIN SOD (PORCINE) 5000 UNITS/ML VIAL SC SCH ×2 (09:41→21:45)
[2018-09-07 10:00] VITALS: BP 162/73
[2018-09-07] MEDS: NS 1,000 ML IV SCH ×2 (11:33→22:55)
[2018-09-07] MEDS ORDERED: LEVEMIR (INSULIN DETEMIR) 1 UNITS/0.01ML SC ONE (11:45)
[2018-09-07] MEDS: ALBUTEROL SULFATE 2.5 MG/0.5 ML INH NEB SOLN NEB SCH ×4 (12:00→23:14)
[2018-09-07] MEDS: OMEPRAZOLE 20 MG CAP PO SCH (12:08)
[2018-09-07] MEDS: amLODIPine 10 MG TAB PO SCH (12:08)
[2018-09-07] MEDS: IPRATROPIUM 0.5MG/ALBUTEROL 2.5MG INH SOL UD 3ML (DUONEB)(J7620) NEB PRN (13:10)
[2018-09-07 14:00] VITALS: BP 136/63
[2018-09-07 18:00] VITALS: BP 158/82
[2018-09-07] MEDS: MELOXICAM (MOBIC) 7.5 MG TAB PO SCH (21:45)
[2018-09-07 22:00] VITALS: BP 139/62
[2018-09-08] VITALS (7 sets, daily range): BP systolic 129–168; BP diastolic 55–79
--- NOTE | 2018-09-08 00:43 | IPNPDOC ---
Text Note Date of Service The patient was seen on 09/07/18. NOTE SUBJECTIVE: Pateint continues to feel unwell with generalized body aches and m alaise, however she is not having any diarrhea. She said that she ate some breakfast after several days. Continues to have wheezing and SOB , No fevers or chills. No abdominal pain. No vomitng this morning. PHYSICAL EXAMINATION: Vitals: As below General, she appears unwell and fatigued. HEENT Exam: Oropharynx clear. normo cephalic, atraumatic Neck: Supple. Cardiovascular: Slightly tachycardic. No murmurs, rubs, or gallops. Lungs: The patient has some coarse breath sounds bilaterally with expiratory wheezing. No rales. Abdomen: Soft, nontender, nondistended. Positive bowel sounds. Extremities: No clubbing, cyanosis, edema. Neurologic: She is alert and oriented times three. Follows simple commands. No focal neurologic deficits. Musculoskeletal: She moves all extremities equally. Skin: Intact. Psych: Mood stable. Labs and Radiology : reviewed Assessment and plan: This is a 68-year-old female with a past medical history of chronic obstructive pulmonary disease (COPD), DALILA on CPAP with oxygen ,polymyalgia rheumatica, diabetes, hyperlipidemia, hypertension, GERD, obesity, migraine who presents with a chief complaint of over a week of feeling general malaise total body pain, decreased oral (p.o.) intake and diarrhea. Patient reports for the last week or so, she has generally felt unwell, and she has had total body pain. She has had difficulty tolerating a diet and has had significantly decreased appetite. She has also felt short of breath. In the ED she was found to have influenza and COPD exacerbation. Influenza A. The patient is positive for flu A. Will provide the patient with supportive care with oxygen supplementation as needed, nebulizers and IV fluids. We will encourage oral intake. COPD exacerbation due to influenza will continue with nebs, steroids, budesonide and spiriva. oxygen supplementation DALILA on CPAP with oxygen bleed through asked to bring own machine May use it when available. Diabetes uncontrolled at presennt due to steroids will give levemir 55 units daily; lispro sliding scale. Hypertension. will give amlodipine for now. Polymyagia rheumatica will continue lyrica. GERD omeprazole. Morbid obesity complicating care. The patient is on subcu heparin for deep vein thrombosis (DVT) prophylaxis. VS,Fishbone, I+O VS, Fishbone, I+O Laboratory Tests 09/07/18 05:33 Red Blood Count 4.16, Mean Corpuscular Volume 88.2, Mean Corpuscular Hemoglobin 29.6, Mean Corpuscular Hemoglobin Concent 33.5, Red Cell Distribution Width 13.1, Calcium Level 8.1 L Vital Signs Date Time Temp Pulse Resp B/P (MAP) Pulse Ox O2 Delivery O2 Flow Rate FiO2 09/07/18 22:00 97.8 85 18 139/62 (87) 96 09/07/18 18:00 2.0 09/06/18 21:42 Room Air I&O- Last 24 Hours up to 6 AM 09/08/18 06:00 Intake Total 1590 ml Output Total 500 ml Balance 1090 ml DELMI REINOSO MD Sep 08, 2018 00:42
[2018-09-08] MEDS: ALBUTEROL SULFATE 2.5 MG/0.5 ML INH NEB SOLN NEB SCH ×6 (04:00→23:31)
[2018-09-08 06:43] LABS: CALCIUM LEVEL 7.9 MG/DL (8.8-10.2); CREATININE FOR GFR 1.25 MG/DL (0.55-1.30); GLOMERULAR FILTRATION RATE 45.2 (>45); POTASSIUM SERUM 3.4 MEQ/L (3.5-5.1)
[2018-09-08] MEDS: TIOTROPIUM INHALER/CAPSULE (SPIRIVA) INH SCH (07:39)
[2018-09-08] MEDS: BUDESONIDE 0.5 MG/2 ML INHALATION SUSPENSION INH SCH ×2 (07:39→21:02)
[2018-09-08] MEDS: HumaLOG INSULIN (NovoLOG) PER UNIT SC SCH ×4 (08:51→21:29)
[2018-09-08] MEDS ORDERED: predniSONE 20 MG TAB PO SCH (09:00)
[2018-09-08] MEDS ORDERED: POTASSIUM CHLORIDE 10 MEQ SR TABLET PO ONE (09:00)
[2018-09-08] MEDS ORDERED: LEVEMIR (INSULIN DETEMIR) 1 UNITS/0.01ML SC SCH (09:00)
[2018-09-08] MEDS: HEPARIN SOD (PORCINE) 5000 UNITS/ML VIAL SC SCH ×2 (09:36→21:13)
[2018-09-08] MEDS: FERROUS SULFATE 325MG TAB PO SCH (09:37)
[2018-09-08] MEDS: amLODIPine 10 MG TAB PO SCH (09:37)
[2018-09-08] MEDS: ACETAMINOPHEN TAB 650MG DOSE (2X325MG) PO PRN ×2 (09:38→14:32)
[2018-09-08] MEDS: FOLIC ACID 1 MG TAB PO SCH (09:38)
[2018-09-08] MEDS: VITAMIN E 400 INTERNATIONAL UNITS CAP PO SCH (09:38)
[2018-09-08] MEDS: OMEPRAZOLE 20 MG CAP PO SCH (09:38)
[2018-09-08] MEDS: methylPREDNISolone INJ 125 MG/2 ML VIAL (J2930) IV SCH (10:14)
[2018-09-08] MEDS: PREGABALIN 100 MG CAP (LYRICA) PO SCH ×2 (10:19→21:13)
--- NOTE | 2018-09-08 12:29 | IPNPDOC ---
Text Note Date of Service The patient was seen on 09/08/18. NOTE SUBJECTIVE: Patient continues to feel unwell with generalized body aches and m alaise, however she is not having any diarrhea. She said that she ate some breakfast after several days. Continues to have wheezing and SOB and bouts of dry hacking cough. No fevers or chills. No abdominal pain. No vomiting this morning. She is very emotional this am and crying as she said she lost her last winter and it has been a difficult winter. And now she is feeling so sick that it is making her depressed and sad. I talked to her at length and alleviated her fears did explain her medical issues and that it may take 3 to 5 days to start feeling better. SHe was feeling a lot better after talking. She did say that she has 2 grown grand daughters who live with her and she has a dog so she does not feel alone. now that she is so sick and unable to do anything thats making her very sad. PHYSICAL EXAMINATION: Vitals: As below General, she appears unwell and fatigued. HEENT Exam: Oropharynx clear. normo cephalic, atraumatic Neck: Supple. Cardiovascular: Slightly tachycardic. No murmurs, rubs, or gallops. Lungs: The patient has some coarse breath sounds bilaterally with expiratory wheezing. Basal crackles. Abdomen: Soft, nontender, nondistended. Positive bowel sounds. Extremities: No clubbing, cyanosis, edema. Neurologic: She is alert and oriented times three. Follows simple commands. No focal neurologic deficits. Musculoskeletal: She moves all extremities equally. Skin: Intact. Psych: Mood stable. Labs and Radiology : reviewed Assessment and plan: This is a 68-year-old female with a past medical history of chronic obstructive pulmonary disease (COPD), DALILA on CPAP with oxygen ,polymyalgia rheumatica, diabetes, hyperlipidemia, hypertension, GERD, obesity, migraine who presents with a chief complaint of over a week of feeling general malaise total body pain, decreased oral (p.o.) intake and diarrhea. Patient reports for the last week or so, she has generally felt unwell, and she has had total body pain. She has had difficulty tolerating a diet and has had significantly decreased appetite. She has also felt short of breath. In the ED she was found to have influenza and COPD exacerbation. Influenza A. The patient is positive for flu A. Will provide the patient with supportive care with oxygen supplementation as needed, nebulizers and IV fluids. We will encourage oral intake. COPD exacerbation due to influenza will continue with nebs, steroids, budesonide and spiriva. cannot tolerate prednisone so will keep on solumedrol then give po solumedrol taper on discharge. oxygen supplementation DALILA on CPAP with oxygen bleed through asked to bring own machine May use it when available. Diabetes uncontrolled at present due to steroids will give levemir 55 units daily; lispro sliding scale. Hypertension. will give amlodipine for now. Polymyagia rheumatica will continue lyrica. GERD omeprazole. Morbid obesity complicating care. The patient is on subcu heparin for deep vein thrombosis (DVT) prophylaxis. VS,Fishbone, I+O VS, Fishbone, I+O Laboratory Tests 09/08/18 05:46 Calcium Level 7.9 L Vital Signs Date Time Temp Pulse Resp B/P (MAP) Pulse Ox O2 Delivery O2 Flow Rate FiO2 09/08/18 10:00 2.0 09/08/18 10:00 98.1 92 18 168/74 (105) 97 09/06/18 21:42 Room Air I&O- Last 24 Hours up to 6 AM 09/08/18 06:00 Intake Total 2640 ml Output Total 800 ml Balance 1840 ml DELMI REINOSO MD Sep 08, 2018 12:29
[2018-09-08] MEDS: DEXTROMETHORPHAN 60MG/10ML SUSP 90ML BTL(DELSYM) PO PRN (14:32)
[2018-09-08] MEDS ORDERED: KETOROLAC 30 MG/ML VIAL (J1885) IV ONE (16:00)
[2018-09-08] MEDS ORDERED: diphenhydrAMINE INJ 50MG/ML VIAL (J1200) IV ONE (16:00)
[2018-09-08] MEDS ORDERED: METOCLOPRAMIDE INJ 10MG/2ML VIAL (J2765) IV ONE (16:00)
[2018-09-08] MEDS: ONDANSETRON 4MG/2ML VIAL (J2405) IV PRN (20:21)
[2018-09-08] MEDS: MELOXICAM (MOBIC) 7.5 MG TAB PO SCH (21:13)
[2018-09-08] MEDS ORDERED: HumaLOG INSULIN (NovoLOG) PER UNIT SC ONE (21:25)
[2018-09-09] VITALS (8 sets, daily range): BP systolic 126–143; BP diastolic 55–78
[2018-09-09] MEDS: ALBUTEROL SULFATE 2.5 MG/0.5 ML INH NEB SOLN NEB SCH ×6 (03:51→23:55)
[2018-09-09 05:50] LABS: BASO % 0.3 % (0.0-1.0); HEMATOCRIT 35.7 % (36.0-47.0); HEMOGLOBIN 11.9 g/dl (12.0-15.5); LYMPH # 0.7 10^3/uL (1.5-4.5); LYMPH % 8.5 % (24.0-44.0); MEAN CORPUSCULAR HEMOGLOBIN 30.1 pg (27.0-33.0); MEAN CORPUSCULAR HGB CONC 33.3 g/dl (32.0-36.5); MEAN CORPUSCULAR VOLUME 90.4 fl (80.0-96.0); MONO # 0.4 10^3/uL (0.0-0.8); MONO % 4.9 % (0.0-5.0); NEUTROPHILS # 7.4 10^3/uL (1.8-7.7); NEUTROPHILS % 84.8 % (36.0-66.0); PLATELET COUNT, AUTOMATED 144 10^3/uL (150-450); RED BLOOD COUNT 3.95 10^6/uL (4.00-5.40); WHITE BLOOD COUNT 8.7 10^3/uL (4.0-10.0)
[2018-09-09 06:18] LABS: CALCIUM LEVEL 8.3 MG/DL (8.8-10.2); CREATININE FOR GFR 1.15 MG/DL (0.55-1.30); GLOMERULAR FILTRATION RATE 49.8 (>45); POTASSIUM SERUM 3.7 MEQ/L (3.5-5.1)
[2018-09-09] MEDS: TIOTROPIUM INHALER/CAPSULE (SPIRIVA) INH SCH (07:09)
[2018-09-09] MEDS: BUDESONIDE 0.5 MG/2 ML INHALATION SUSPENSION INH SCH ×2 (07:09→20:54)
[2018-09-09] MEDS: ACETAMINOPHEN 500 MG TAB PO PRN (08:07)
[2018-09-09] MEDS: HumaLOG INSULIN (NovoLOG) PER UNIT SC SCH ×4 (08:09→21:28)
[2018-09-09] MEDS: HEPARIN SOD (PORCINE) 5000 UNITS/ML VIAL SC SCH ×2 (10:59→21:27)
[2018-09-09] MEDS: methylPREDNISolone INJ 125 MG/2 ML VIAL (J2930) IV SCH (11:00)
[2018-09-09] MEDS: ONDANSETRON 4MG/2ML VIAL (J2405) IV PRN (11:00)
[2018-09-09] MEDS: LEVEMIR (INSULIN DETEMIR) 1 UNITS/0.01ML SC SCH (11:01)
[2018-09-09] MEDS: VITAMIN E 400 INTERNATIONAL UNITS CAP PO SCH (11:02)
[2018-09-09] MEDS: DEXTROMETHORPHAN 60MG/10ML SUSP 90ML BTL(DELSYM) PO PRN (11:02)
[2018-09-09] MEDS: FERROUS SULFATE 325MG TAB PO SCH (11:03)
[2018-09-09] MEDS: OMEPRAZOLE 20 MG CAP PO SCH (11:03)
[2018-09-09] MEDS: guaiFENesin ER 600 MG TAB PO PRN ×2 (11:03→21:28)
[2018-09-09] MEDS: PREGABALIN 100 MG CAP (LYRICA) PO SCH ×2 (11:03→21:27)
[2018-09-09] MEDS: FOLIC ACID 1 MG TAB PO SCH (11:04)
[2018-09-09] MEDS: amLODIPine 10 MG TAB PO SCH (11:05)
--- NOTE | 2018-09-09 14:10 | IPNPDOC ---
Text Note Date of Service The patient was seen on 09/09/18. NOTE SUBJECTIVE: Complains of severe headache which started yesterday and feels its a migraine attack, continues to be SOB and has dry hacking cough. Still feels very weak and tired. No fever or chills, continues to have diarrhea. No abdominal pain , nausea or vomiting PHYSICAL EXAMINATION: Vitals: As below General, she appears unwell and fatigued. HEENT Exam: Oropharynx clear. normo cephalic, atraumatic Neck: Supple. Cardiovascular: Slightly tachycardic. No murmurs, rubs, or gallops. Lungs: The patient has some coarse breath sounds bilaterally with expiratory wheezing. Basal crackles. Abdomen: Soft, nontender, nondistended. Positive bowel sounds. Extremities: No clubbing, cyanosis, edema. Neurologic: She is alert and oriented times three. Follows simple commands. No focal neurologic deficits. Musculoskeletal: She moves all extremities equally. Skin: Intact. Psych: Mood stable. Labs and Radiology : reviewed Assessment and plan: This is a 68-year-old female with a past medical history of chronic obstructive pulmonary disease (COPD), DALILA on CPAP with oxygen ,polymyalgia rheumatica, diabetes, hyperlipidemia, hypertension, GERD, obesity, migraine who presents with a chief complaint of over a week of feeling general malaise total body pain, decreased oral (p.o.) intake and diarrhea. Patient reports for the last week or so, she has generally felt unwell, and she has had total body pain. She has had difficulty tolerating a diet and has had significantly decreased appetite. She has also felt short of breath. In the ED she was found to have influenza and COPD exacerbation. Influenza A. The patient is positive for flu A. Will provide the patient with supportive care with oxygen supplementation as needed, nebulizers and IV fluids. We will encourage oral intake. COPD exacerbation due to influenza will continue with nebs, steroids, budesonide and spiriva. cannot tolerate prednisone so will keep on solumedrol then give po solumedrol taper on discharge. oxygen supplementation DALILA on CPAP with oxygen bleed through asked to bring own machine May use it when available. Diabetes uncontrolled at present due to steroids will give levemir 55 units daily; lispro sliding scale. Hypertension. will give amlodipine for now. Polymyagia rheumatica will continue lyrica. GERD omeprazole. Morbid obesity complicating care. Migraine may be having an acute attack will give rizotriptan. The patient is on subcu heparin for deep vein thrombosis (DVT) prophylaxis. VS,Fishbone, I+O VS, Fishbone, I+O Laboratory Tests 09/09/18 05:15 Red Blood Count 3.95 L, Mean Corpuscular Volume 90.4, Mean Corpuscular Hemoglobin 30.1, Mean Corpuscular Hemoglobin Concent 33.3, Red Cell Distribution Width 13.3, Neutrophils (%) (Auto) 84.8 H, Lymphocytes (%) (Auto) 8.5 L, Monocytes (%) (Auto) 4.9, Eosinophils (%) (Auto) 0.0, Basophils (%) (Auto) 0.3, Neutrophils # (Auto) 7.4, Lymphocytes # (Auto) 0.7 L, Monocytes # (Auto) 0.4, Eosinophils # (Auto) 0.0, Basophils # (Auto) 0.0, Calcium Level 8.3 L Vital Signs Date Time Temp Pulse Resp B/P (MAP) Pulse Ox O2 Delivery O2 Flow Rate FiO2 09/09/18 12:00 98.6 106 20 130/62 (84) 95 1.0 09/06/18 21:42 Room Air I&O- Last 24 Hours up to 6 AM 09/09/18 06:00 Intake Total 2045 ml Output Total 1000 ml Balance 1045 ml DELMI REINOSO MD Sep 09, 2018 14:10
[2018-09-09] MEDS: RIZATRIPTAN BENZOATE 10 MG TAB PO PRN (18:40)
[2018-09-09] MEDS: MELOXICAM (MOBIC) 7.5 MG TAB PO SCH (21:26)
[2018-09-10 02:00] VITALS: BP 146/78
[2018-09-10] MEDS: ALBUTEROL SULFATE 2.5 MG/0.5 ML INH NEB SOLN NEB SCH ×5 (03:35→22:48)
[2018-09-10 05:29] LABS: BASO % 0.3 % (0.0-1.0); EOS % 0.1 % (0.0-3.0); HEMATOCRIT 34.8 % (36.0-47.0); HEMOGLOBIN 11.8 g/dl (12.0-15.5); LYMPH # 0.9 10^3/uL (1.5-4.5); LYMPH % 12.8 % (24.0-44.0); MEAN CORPUSCULAR HEMOGLOBIN 30.2 pg (27.0-33.0); MEAN CORPUSCULAR HGB CONC 33.9 g/dl (32.0-36.5); MONO # 0.4 10^3/uL (0.0-0.8); MONO % 6.4 % (0.0-5.0); NEUTROPHILS # 5.2 10^3/uL (1.8-7.7); NEUTROPHILS % 77.6 % (36.0-66.0); PLATELET COUNT, AUTOMATED 143 10^3/uL (150-450); RED BLOOD COUNT 3.91 10^6/uL (4.00-5.40); WHITE BLOOD COUNT 6.7 10^3/uL (4.0-10.0)
[2018-09-10 05:55] LABS: GLOMERULAR FILTRATION RATE 58.5 (>45); POTASSIUM SERUM 3.9 MEQ/L (3.5-5.1)
[2018-09-10 06:00] VITALS: BP 159/89
[2018-09-10] MEDS: BUDESONIDE 0.5 MG/2 ML INHALATION SUSPENSION INH SCH ×2 (07:39→20:00)
[2018-09-10] MEDS: TIOTROPIUM INHALER/CAPSULE (SPIRIVA) INH SCH (07:39)
[2018-09-10] MEDS: PREGABALIN 100 MG CAP (LYRICA) PO SCH ×2 (08:04→20:39)
[2018-09-10] MEDS: LEVEMIR (INSULIN DETEMIR) 1 UNITS/0.01ML SC SCH (08:04)
[2018-09-10] MEDS: FERROUS SULFATE 325MG TAB PO SCH (08:04)
[2018-09-10] MEDS: HumaLOG INSULIN (NovoLOG) PER UNIT SC SCH ×4 (08:04→20:40)
[2018-09-10] MEDS: VITAMIN E 400 INTERNATIONAL UNITS CAP PO SCH (08:04)
[2018-09-10] MEDS: OMEPRAZOLE 20 MG CAP PO SCH (08:05)
[2018-09-10] MEDS: amLODIPine 10 MG TAB PO SCH (08:05)
[2018-09-10] MEDS: methylPREDNISolone INJ 125 MG/2 ML VIAL (J2930) IV SCH (08:05)
[2018-09-10] MEDS: HEPARIN SOD (PORCINE) 5000 UNITS/ML VIAL SC SCH ×2 (08:05→20:39)
[2018-09-10] MEDS: FOLIC ACID 1 MG TAB PO SCH (08:05)
[2018-09-10 09:30] VITALS: BP 150/68
[2018-09-10] MEDS: DEXTROMETHORPHAN 60MG/10ML SUSP 90ML BTL(DELSYM) PO PRN ×2 (10:05→23:53)
[2018-09-10] MEDS: guaiFENesin ER 600 MG TAB PO PRN ×2 (10:06→20:38)
[2018-09-10] MEDS: RIZATRIPTAN BENZOATE 10 MG TAB PO PRN ×2 (10:07→23:54)
--- NOTE | 2018-09-10 10:36 | IPN ---
DATE OF SERVICE: 09/10/2018 ATTENDING PHYSICIAN: Dr. Suzi Villa. Qiana Veloz was seen [facility]. I am rounding for the hospitalist. She is frustrated about her cough. She says that she has a cough "in her throat". It is keeping her awake. Does not feel anywhere ready for discharge. She has influenza A which at this point has not been treated with antivirals. PHYSICAL EXAMINATION: Afebrile. Vital signs stable. Saturation 97% on 1 liter. General appearance: Resting comfortably in bed, not coughing. Lungs: Wheezes in all gerber. Heart: Regular rate and rhythm. Abdomen: Soft, nontender. Trace peripheral edema. LABS: Electrolytes unremarkable. CBC stable. IMPRESSION: 1. Influenza A. This is her fifth day of hospitalization. While antiviral therapy is unlikely to provide significant benefit, she really has not improved as much as she feels she should and at this point, I am going to start some Tamiflu. She does not have any allergy to it. Order some Tessalon for her cough. 2. Diabetes on Levemir sliding scale. Blood sugar has been high from her steroids. 3. Hypertension, well controlled on current regimen. 4. Polymyalgia rheumatica. She is on steroids and Lyrica. 5. Migraine headache. She required triptan yesterday and headache has resolved. She will be in the hospital for a few more days at least.
[2018-09-10] MEDS: OSELTAMIVIR PHOSPHATE 75 MG CAP (TAMIFLU) PO SCH ×2 (11:12→20:38)
[2018-09-10 12:00] VITALS: BP 148/80
[2018-09-10 14:00] VITALS: BP 150/58
[2018-09-10] MEDS: MELOXICAM (MOBIC) 7.5 MG TAB PO SCH (20:38)
[2018-09-10 22:00] VITALS: BP 142/87
[2018-09-11] MEDS: ALBUTEROL SULFATE 2.5 MG/0.5 ML INH NEB SOLN NEB SCH ×6 (03:12→23:37)
[2018-09-11 06:00] VITALS: BP 151/89
[2018-09-11 06:07] LABS: HEMATOCRIT 34.9 % (36.0-47.0); HEMOGLOBIN 11.6 g/dl (12.0-15.5); MEAN CORPUSCULAR HEMOGLOBIN 29.9 pg (27.0-33.0); MEAN CORPUSCULAR HGB CONC 33.2 g/dl (32.0-36.5); MEAN CORPUSCULAR VOLUME 89.9 fl (80.0-96.0); PLATELET COUNT, AUTOMATED 154 10^3/uL (150-450); RED BLOOD COUNT 3.88 10^6/uL (4.00-5.40); WHITE BLOOD COUNT 7.9 10^3/uL (4.0-10.0)
[2018-09-11 06:30] LABS: CALCIUM LEVEL 8.4 MG/DL (8.8-10.2); CREATININE FOR GFR 1.1 MG/DL (0.55-1.30); GLOMERULAR FILTRATION RATE 52.4 (>45); POTASSIUM SERUM 3.4 MEQ/L (3.5-5.1)
[2018-09-11] MEDS: TIOTROPIUM INHALER/CAPSULE (SPIRIVA) INH SCH (07:16)
[2018-09-11] MEDS: BUDESONIDE 0.5 MG/2 ML INHALATION SUSPENSION INH SCH ×2 (07:16→19:50)
[2018-09-11] MEDS: HumaLOG INSULIN (NovoLOG) PER UNIT SC SCH ×4 (07:51→20:29)
[2018-09-11] MEDS: LEVEMIR (INSULIN DETEMIR) 1 UNITS/0.01ML SC SCH (07:51)
[2018-09-11] MEDS: FOLIC ACID 1 MG TAB PO SCH (07:52)
[2018-09-11] MEDS: VITAMIN E 400 INTERNATIONAL UNITS CAP PO SCH (07:52)
[2018-09-11] MEDS: amLODIPine 10 MG TAB PO SCH (07:52)
[2018-09-11] MEDS: OMEPRAZOLE 20 MG CAP PO SCH (07:52)
[2018-09-11] MEDS: OSELTAMIVIR PHOSPHATE 75 MG CAP (TAMIFLU) PO SCH ×2 (07:52→20:28)
[2018-09-11] MEDS: FERROUS SULFATE 325MG TAB PO SCH (07:52)
[2018-09-11] MEDS: PREGABALIN 100 MG CAP (LYRICA) PO SCH ×2 (07:53→20:28)
[2018-09-11] MEDS: methylPREDNISolone INJ 125 MG/2 ML VIAL (J2930) IV SCH (07:53)
[2018-09-11] MEDS: HEPARIN SOD (PORCINE) 5000 UNITS/ML VIAL SC SCH ×2 (07:53→20:29)
[2018-09-11 07:56] LABS: ATYPICAL LYMPH 3 % (0-5); EOSINOPHILS 1 % (0-5); LYMPHOCYTES 18 % (16-52); MONOCYTES 5 % (0-8); MYELOCYTES 2 % (0-0); NEUTROPHILS 69 % (35-75); PLATELET ESTIMATE NORMAL (NORMAL)
[2018-09-11 07:57] LABS: ANISOCYTOSIS 1+; MICROCYTOSIS 1+
[2018-09-11] MEDS: CEPACOL LOZENGE PO PRN ×3 (12:29→21:13)
[2018-09-11] MEDS: RIZATRIPTAN BENZOATE 10 MG TAB PO PRN ×2 (12:30→16:41)
[2018-09-11 14:00] VITALS: BP 158/72
[2018-09-11] MEDS: IPRATROPIUM 0.5MG/ALBUTEROL 2.5MG INH SOL UD 3ML (DUONEB)(J7620) NEB PRN (15:42)
[2018-09-11] MEDS: guaiFENesin ER 600 MG TAB PO PRN (20:28)
[2018-09-11] MEDS: MELOXICAM (MOBIC) 7.5 MG TAB PO SCH (20:28)
[2018-09-11 22:00] VITALS: BP_SYST 130; BP_DIAS 50; BP_DIAS 52
[2018-09-11] MEDS ORDERED: POTASSIUM CHLORIDE 10 MEQ SR TABLET PO ONE (23:00)
[2018-09-12] MEDS: ALBUTEROL SULFATE 2.5 MG/0.5 ML INH NEB SOLN NEB SCH ×6 (02:55→23:48)
[2018-09-12 06:16] LABS: MEAN CORPUSCULAR HEMOGLOBIN 29.1 pg (27.0-33.0); MEAN CORPUSCULAR HGB CONC 32.5 g/dl (32.0-36.5); MEAN CORPUSCULAR VOLUME 89.5 fl (80.0-96.0); PLATELET COUNT, AUTOMATED 209 10^3/uL (150-450); RED BLOOD COUNT 4.47 10^6/uL (4.00-5.40); WHITE BLOOD COUNT 11.4 10^3/uL (4.0-10.0)
[2018-09-12 06:40] LABS: CALCIUM LEVEL 8.9 MG/DL (8.8-10.2); CREATININE FOR GFR 1.1 MG/DL (0.55-1.30); GLOMERULAR FILTRATION RATE 52.4 (>45); POTASSIUM SERUM 3.5 MEQ/L (3.5-5.1)
[2018-09-12 06:51] LABS: ATYPICAL LYMPH 2 % (0-5); EOSINOPHILS 1 % (0-5); LYMPHOCYTES 17 % (16-52); METAMYELOCYTES 1 % (0-0); MONOCYTES 4 % (0-8); MYELOCYTES 3 % (0-0); NEUTROPHILS 72 % (35-75); PLATELET ESTIMATE NORMAL (NORMAL)
[2018-09-12] MEDS: BUDESONIDE 0.5 MG/2 ML INHALATION SUSPENSION INH SCH ×2 (07:13→19:35)
[2018-09-12] MEDS: TIOTROPIUM INHALER/CAPSULE (SPIRIVA) INH SCH (07:13)
[2018-09-12 08:13] VITALS: BP 145/63
[2018-09-12] MEDS: methylPREDNISolone INJ 125 MG/2 ML VIAL (J2930) IV SCH (08:35)
[2018-09-12] MEDS: HumaLOG INSULIN (NovoLOG) PER UNIT SC SCH ×4 (08:35→21:35)
[2018-09-12] MEDS: HEPARIN SOD (PORCINE) 5000 UNITS/ML VIAL SC SCH ×2 (08:35→21:34)
--- NOTE | 2018-09-12 08:35 | IPN ---
DATE: 09/11/2018 She was admitted with acute exacerbation from chronic obstructive pulmonary disease (COPD). She has influenza A. She still gets quite short of breath with dyspnea on exertion. She was started on antivirals, Tamiflu. She states Tessalon Perles have helped slightly with the cough. She was complaining of a dry scratchy throat. She feels weak bed a lot. Will get a physical therapy (PT), occupation therapy (OT), respiratory physical therapy (RPT) evaluation. PHYSICAL EXAMINATION: Blood pressure 115/72, pulse 72, respirations 20, temperature 97.5, oxygen saturation 96% on 1 liter. Patient is alert and oriented times three. Pharynx, tongue, gums pink and moist. Tongue is midline. Neck is supple, without lymphadenopathy. No thyromegaly. No goiter. Chest has a few scattered expiratory wheeze. No retraction. Heart is regular. Abdomen benign. Bowel sounds positive. Extremities show trace bilateral extremity edema. Peripheral pulses equal and palpable bilaterally. LABORATORY STUDIES: White count 7.9, hemoglobin 11.6, hematocrit 34.9, platelets improved to 154. Sodium 140, potassium 3.4. Dose of KCL was given. Chloride 104, CO2 29, BUN 18, creatinine 1.1, glucose improving 193. IMPRESSION AND PLAN: 1. Influenza A: Continue the antiviral. 2. Acute exacerbation COPD: Continue Solu-Medrol. Continue DuoNeb treatments and budesonide. 3. Cepacol lozenges for dry scratchy throat. 4. Diabetes: Continue Levemir and sliding scale. 5. Hypertension, blood pressure remaining . Will increase . 6. Myalgia rheumatica: Continued steroids and Lyrica. 7. Migraine headaches. None today. 8. Deconditioning: Get physical therapy evaluation.
[2018-09-12] MEDS: amLODIPine 10 MG TAB PO SCH (08:36)
[2018-09-12] MEDS: OSELTAMIVIR PHOSPHATE 75 MG CAP (TAMIFLU) PO SCH ×2 (08:36→21:33)
[2018-09-12] MEDS: LEVEMIR (INSULIN DETEMIR) 1 UNITS/0.01ML SC SCH (08:36)
[2018-09-12] MEDS: VITAMIN E 400 INTERNATIONAL UNITS CAP PO SCH (08:36)
[2018-09-12] MEDS: PREGABALIN 100 MG CAP (LYRICA) PO SCH ×2 (08:36→21:33)
[2018-09-12] MEDS: FERROUS SULFATE 325MG TAB PO SCH (08:37)
[2018-09-12] MEDS: OMEPRAZOLE 20 MG CAP PO SCH (08:37)
[2018-09-12] MEDS: FOLIC ACID 1 MG TAB PO SCH (08:37)
[2018-09-12] MEDS: LOSARTAN 50 MG TAB PO SCH (08:37)
[2018-09-12 10:00] VITALS: BP 152/70
--- NOTE | 2018-09-12 10:41 | IPN ---
DATE: 09/12/2018 Qiana is seen for her chronic obstructive pulmonary disease (COPD). She is still wheezy. She does not feel dramatically better than when she was admitted. She had a late start to her Tamiflu for her influenza A. She complains a lot about sore throat and generalized weakness. PHYSICAL EXAMINATION: Afebrile. No fevers since admission. 143/63. Oxygen saturation 98% on 1 liter. General Appearance: She looks mildly ill, lying in bed. HEENT: Unremarkable. Pharynx erythematous. Lungs: Expiratory wheezes all gerber. No real change from two days ago. Heart: Regular rhythm. Abdomen: Soft. Nontender. No peripheral edema. LABS: CBC unremarkable. Electrolytes unremarkable. Potassium 3.5. IMPRESSION: 1. Influenza A. She had been here five days before her Tamiflu was started. I am not sure it is going to do her much good this far into her course. 2. COPD exacerbation secondary to influenza. Continue current bronchodilator regimen as well as her Tamiflu as well as her steroids. 3. Diabetes. Sliding scale plus Levemir. Blood sugars are quite elevated. Detemir dose was adjusted today. 4. Polymyalgia rheumatica. Continue steroids and Lyrica. I expect her hospitalization to extend at least into the end of the week.
[2018-09-12] MEDS: ACETAMINOPHEN 500 MG TAB PO PRN ×2 (12:14→21:33)
[2018-09-12 14:00] VITALS: BP 143/74
[2018-09-12 18:00] VITALS: BP 160/71
[2018-09-12] MEDS: MELOXICAM (MOBIC) 7.5 MG TAB PO SCH (21:33)
[2018-09-12 22:00] VITALS: BP 160/73
[2018-09-13 02:00] VITALS: BP 163/75
[2018-09-13] MEDS: ALBUTEROL SULFATE 2.5 MG/0.5 ML INH NEB SOLN NEB SCH ×6 (04:00→23:41)
[2018-09-13 06:00] VITALS: BP 146/75
[2018-09-13 06:03] LABS: HEMOGLOBIN 11.5 g/dl (12.0-15.5); MEAN CORPUSCULAR HEMOGLOBIN 29.4 pg (27.0-33.0); MEAN CORPUSCULAR HGB CONC 32.9 g/dl (32.0-36.5); MEAN CORPUSCULAR VOLUME 89.5 fl (80.0-96.0); PLATELET COUNT, AUTOMATED 166 10^3/uL (150-450); RED BLOOD COUNT 3.91 10^6/uL (4.00-5.40); WHITE BLOOD COUNT 8.8 10^3/uL (4.0-10.0)
[2018-09-13] MEDS: CEPACOL LOZENGE PO PRN (06:13)
[2018-09-13 06:25] LABS: CALCIUM LEVEL 8.2 MG/DL (8.8-10.2); CREATININE FOR GFR 0.99 MG/DL (0.55-1.30); GLOMERULAR FILTRATION RATE 59.2 (>45); POTASSIUM SERUM 3.1 MEQ/L (3.5-5.1)
[2018-09-13 06:36] LABS: BASOPHILS 1 % (0-4); LYMPHOCYTES 17 % (16-52); METAMYELOCYTES 4 % (0-0); MONOCYTES 9 % (0-8); MYELOCYTES 1 % (0-0); NEUTROPHILS 68 % (35-75)
[2018-09-13 06:37] LABS: PLATELET ESTIMATE NORMAL (NORMAL)
[2018-09-13] MEDS: BUDESONIDE 0.5 MG/2 ML INHALATION SUSPENSION INH SCH ×2 (07:41→20:08)
[2018-09-13] MEDS: TIOTROPIUM INHALER/CAPSULE (SPIRIVA) INH SCH (07:41)
[2018-09-13] MEDS: HEPARIN SOD (PORCINE) 5000 UNITS/ML VIAL SC SCH ×2 (08:35→20:42)
[2018-09-13] MEDS: methylPREDNISolone INJ 125 MG/2 ML VIAL (J2930) IV SCH (08:35)
[2018-09-13] MEDS: HumaLOG INSULIN (NovoLOG) PER UNIT SC SCH ×4 (08:36→20:43)
[2018-09-13] MEDS: LEVEMIR (INSULIN DETEMIR) 1 UNITS/0.01ML SC SCH (08:37)
[2018-09-13] MEDS: VITAMIN E 400 INTERNATIONAL UNITS CAP PO SCH (08:37)
[2018-09-13] MEDS: FERROUS SULFATE 325MG TAB PO SCH (08:37)
[2018-09-13] MEDS: amLODIPine 10 MG TAB PO SCH (08:37)
[2018-09-13] MEDS: ACETAMINOPHEN 500 MG TAB PO PRN ×2 (08:38→17:26)
[2018-09-13] MEDS: OSELTAMIVIR PHOSPHATE 75 MG CAP (TAMIFLU) PO SCH ×2 (08:38→20:41)
[2018-09-13] MEDS: FOLIC ACID 1 MG TAB PO SCH (08:38)
[2018-09-13] MEDS: PREGABALIN 100 MG CAP (LYRICA) PO SCH ×2 (08:38→20:41)
[2018-09-13] MEDS: OMEPRAZOLE 20 MG CAP PO SCH (08:39)
[2018-09-13] MEDS: LOSARTAN 50 MG TAB PO SCH (08:39)
[2018-09-13] MEDS ORDERED: POTASSIUM CHLORIDE 10 MEQ SR TABLET PO ONE (09:00)
[2018-09-13 10:00] VITALS: BP 146/74
[2018-09-13 14:00] VITALS: BP 148/75
--- NOTE | 2018-09-13 15:11 | IPN ---
DATE: 09/13/2018 SUBJECTIVE: Patient is seen and examined. Patient complains about intolerance to activities. Denies any worsening of her breathing. Denies any fevers or chills. OBJECTIVE: VITAL SIGNS: Temperature 98.2, pulse 78, respirations 18, blood pressure 146/75, pulse oximetry 96% in room air. GENERAL: No sign of acute distress, patient alert and awake, comfortable. HEENT: Normocephalic, atraumatic. Extraocular motors grossly intact. CARDIOVASCULAR: Positive S1, S2, regular rate. LUNGS: Clear to auscultation bilaterally. ABDOMEN: Soft, nontender, bowel sounds present. EXTREMITIES: No edema. LABORATORY DATA: WBC 8.8, hemoglobin 11.5, hematocrit 35, platelet count 166, sodium 141, potassium 3.1, chloride 102, carbon dioxide 33, BUN 20, creatinine 0.99, GFR 59.2, fasting glucose 165, calcium 8.2. ASSESSMENT AND PLAN: 1. Chronic obstructive pulmonary disease (COPD) exacerbation secondary to influenza. Patient is currently on Tamiflu. Nebulizer treatment as needed. 2. Influenza infection, on Tamiflu. 3. Diabetes, on insulin sliding scale. 4. Polymyalgia rheumatica, on steroids, on Lyrica. 5. Deep venous thrombosis (DVT) prophylaxis, on heparin.
[2018-09-13 18:00] VITALS: BP 144/73
[2018-09-13] MEDS: MELOXICAM (MOBIC) 7.5 MG TAB PO SCH (20:41)
[2018-09-13 22:00] VITALS: BP 138/73
[2018-09-14 02:00] VITALS: BP 140/63
[2018-09-14] MEDS: ALBUTEROL SULFATE 2.5 MG/0.5 ML INH NEB SOLN NEB SCH ×3 (04:00→11:15)
[2018-09-14] MEDS: ACETAMINOPHEN 500 MG TAB PO PRN (04:11)
[2018-09-14] MEDS: CEPACOL LOZENGE PO PRN (04:15)
[2018-09-14 05:59] LABS: HEMATOCRIT 34.9 % (36.0-47.0); HEMOGLOBIN 11.5 g/dl (12.0-15.5); MEAN CORPUSCULAR HEMOGLOBIN 29.4 pg (27.0-33.0); MEAN CORPUSCULAR VOLUME 89.3 fl (80.0-96.0); PLATELET COUNT, AUTOMATED 188 10^3/uL (150-450); RED BLOOD COUNT 3.91 10^6/uL (4.00-5.40); WHITE BLOOD COUNT 10.6 10^3/uL (4.0-10.0)
[2018-09-14 06:00] VITALS: BP 131/75
[2018-09-14 06:28] LABS: CALCIUM LEVEL 8.3 MG/DL (8.8-10.2); CREATININE FOR GFR 1.05 MG/DL (0.55-1.30); GLOMERULAR FILTRATION RATE 55.3 (>45); POTASSIUM SERUM 3.1 MEQ/L (3.5-5.1)
[2018-09-14 06:52] LABS: ATYPICAL LYMPH 1 % (0-5); LYMPHOCYTES 16 % (16-52); METAMYELOCYTES 1 % (0-0); MONOCYTES 7 % (0-8); MYELOCYTES 1 % (0-0); NEUTROPHILS 74 % (35-75); PLATELET ESTIMATE NORMAL (NORMAL)
[2018-09-14] MEDS: TIOTROPIUM INHALER/CAPSULE (SPIRIVA) INH SCH (07:10)
[2018-09-14] MEDS: BUDESONIDE 0.5 MG/2 ML INHALATION SUSPENSION INH SCH (07:10)
[2018-09-14] MEDS: methylPREDNISolone INJ 125 MG/2 ML VIAL (J2930) IV SCH (08:44)
[2018-09-14] MEDS: HumaLOG INSULIN (NovoLOG) PER UNIT SC SCH ×2 (08:45→13:14)
[2018-09-14] MEDS: HEPARIN SOD (PORCINE) 5000 UNITS/ML VIAL SC SCH (08:45)
[2018-09-14] MEDS: LEVEMIR (INSULIN DETEMIR) 1 UNITS/0.01ML SC SCH (08:46)
[2018-09-14] MEDS: amLODIPine 10 MG TAB PO SCH (08:46)
[2018-09-14] MEDS: OMEPRAZOLE 20 MG CAP PO SCH (08:46)
[2018-09-14] MEDS: VITAMIN E 400 INTERNATIONAL UNITS CAP PO SCH (08:47)
[2018-09-14] MEDS: OSELTAMIVIR PHOSPHATE 75 MG CAP (TAMIFLU) PO SCH (08:47)
[2018-09-14] MEDS: PREGABALIN 100 MG CAP (LYRICA) PO SCH (08:47)
[2018-09-14 08:48] VITALS: BP 130/60
[2018-09-14] MEDS: FERROUS SULFATE 325MG TAB PO SCH (08:48)
[2018-09-14] MEDS: FOLIC ACID 1 MG TAB PO SCH (08:48)
[2018-09-14] MEDS: LOSARTAN 50 MG TAB PO SCH (08:48)
[2018-09-14] MEDS: RIZATRIPTAN BENZOATE 10 MG TAB PO PRN (09:01)
[2018-09-14] MEDS ORDERED: K-TA1TAB PO (11:57)
[2018-09-14] MEDS ORDERED: COZA50TA PO (11:57)
[2018-09-14] MEDS ORDERED: TESS100C PO (11:57)
[2018-09-14] MEDS ORDERED: OSEL75CA PO (11:57)
[2018-09-14] MEDS ORDERED: PRED10TA2 PO (11:57)
[2018-09-14] MEDS ORDERED: AMLO10TA5 PO (11:57)
[2018-09-14] MEDS ORDERED: BENZONATATE 100 MG CAP PO ONE (12:00)
[2018-09-14] MEDS ORDERED: MEDR8TAB PO (12:46)
[2018-09-14] MEDS: KCL 10MEQ/100ML SWI (KRUN) 10 MEQ in APPROPRIATE DILUENT 1 EA IV SCH ×2 (13:00→13:14)
[2018-09-14] MEDS ORDERED: POTASSIUM CHLORIDE 10 MEQ SR TABLET PO ONE (14:30)
== END 2018-09-14 15:21 | disposition home or self-care (01) | DRG 194 ==
LOC: M ED 12:50 → M ED INP 19:56 → M MSPAV 22:18
PROVIDERS: ADMIT Internal Medicine; ATTEND Internal Medicine Nephrology
DX: J10.1 Influenza due to other identified influenza virus with other respiratory manifestations (principal); J44.1 Chronic obstructive pulmonary disease with (acute) exacerbation; J44.0 Chronic obstructive pulmonary disease with (acute) lower respiratory infection; Z68.41 Body mass index [BMI] 40.0-44.9, adult; E11.65 Type 2 diabetes mellitus with hyperglycemia; T38.0X5A Adverse effect of glucocorticoids and synthetic analogues, initial encounter; I10 Essential (primary) hypertension; M35.3 Polymyalgia rheumatica; G43.909 Migraine, unspecified, not intractable, without status migrainosus; E66.01 Morbid (severe) obesity due to excess calories; G47.33 Obstructive sleep apnea (adult) (pediatric); K21.9 Gastro-esophageal reflux disease without esophagitis; Z79.1 Long term (current) use of non-steroidal anti-inflammatories (NSAID); Z79.899 Other long term (current) drug therapy; Z88.5 Allergy status to narcotic agent; Z88.6 Allergy status to analgesic agent; Z88.8 Allergy status to other drugs, medicaments and biological substances; Z87.891 Personal history of nicotine dependence

== ENCOUNTER → 2020-01-19 | Outpatient (CLI) | payer OTHER ==
[~2020-01-19] MED LIST changes: -AMLO10TA5 PO; +AMLO1TAB24 PO; +AMLO1TAB25 PO; -AMLO5TAB6 PO; +ATOR1TAB21 PO; -CITA20TA4 PO; +CITA20TA6 PO; +COZA50TA PO; -GLIM4TAB PO; +GLIM4TAB5 PO; +INSUHUMDS SC; +IPRA0.00 INH; +K-TA1TAB PO; +LISI-538 PO; +LOSA100T5 PO; +MEDR4PAK PO; +MEDR8TAB PO; +MELO15TA28 PO; +ONDA-83 PO; +OSEL75CA PO; +PANT40TA29 PO; -PANT40TA3 PO; +PIOG1TAB36 PO; +PRED5PAK PO; +TESS100C PO; +TRUL0.5I SC; +VITA500055 PO
[2020-01-19 12:27] LABS: BLOOD UREA NITROGEN 14 MG/DL (7-18); CREATININE FOR GFR 0.92 MG/DL (0.55-1.30); GLOMERULAR FILTRATION RATE > 60.0 (>39)
== END ==
LOC: M WUC 09:52
PROVIDERS: ATTEND Physician Assistant Medical
DX: R63.4 Abnormal weight loss (principal)

== ENCOUNTER → 2020-02-06 | Outpatient (REF) | payer OTHER ==
[2020-03-04 13:28] LABS: INR 1.03; PARTIAL THROMBOPLASTIN TIME 28.1 SECONDS (25.0-38.4); PROTHROMBIN TIME 13.7 SECONDS (11.8-14.0)
[2020-03-04 13:29] LABS: HEMATOCRIT 39.6 % (36.0-47.0); MEAN CORPUSCULAR HGB CONC 32.8 g/dl (32.0-36.5); MEAN CORPUSCULAR VOLUME 94.5 fl (80.0-96.0); PLATELET COUNT, AUTOMATED 206 10^3/uL (150-450); RED BLOOD COUNT 4.19 10^6/uL (4.00-5.40); WHITE BLOOD COUNT 10.4 10^3/uL (4.0-10.0)
[2020-03-22 13:22] LABS: ALBUMIN 3.4 GM/DL (3.2-5.2); BILIRUBIN,DIRECT 0.2 MG/DL (0.0-0.2); BILIRUBIN,TOTAL 0.3 MG/DL (0.2-1.0)
== END ==
LOC: M WUC 13:35
PROVIDERS: ATTEND Physician Assistant Medical
DX: R93.3 Abnormal findings on diagnostic imaging of other parts of digestive tract (principal)

== ENCOUNTER → 2020-02-07 | Outpatient (REF) | payer OTHER | LOC: M LAB REF 11:12 | PROVIDERS: ATTEND Physician Assistant | DX: D48.9 Neoplasm of uncertain behavior, unspecified (principal) ==

== ENCOUNTER → 2020-02-25 | Outpatient (CLI) | payer OTHER | LOC: M LABSMTC 08:06 | PROVIDERS: ATTEND Anesthesiology | DX: Z01.812 Encounter for preprocedural laboratory examination (principal); Z11.59 Encounter for screening for other viral diseases ==

== ENCOUNTER 2020-03-01 10:23 | Day surgery (SDC) | payer OTHER ==
[~2020-03-01] VITALS: Ht 165.1 cm; Wt 108.4 kg
[~2020-03-01 10:23] MED LIST changes: -ATOR1TAB21 PO; -ONDA-83 PO; -PRED5PAK PO
[2020-03-01] MEDS ORDERED: RABE1TAB PO (11:08)
[2020-03-01] MEDS ORDERED: PRED5PAK PO (11:08)
[2020-03-01] MEDS ORDERED: ONDA-83 PO (11:08)
[2020-03-01] MEDS ORDERED: propofoL 200 MG/20 ML VIAL As Ordered ONE (11:55)
[2020-03-01] MEDS ORDERED: fentaNYL 100 MCG/2 ML INJECTION (J3010) As Ordered ONE (11:55)
[2020-03-01] MEDS ORDERED: LIDOCAINE 2% 100MG/5ML SDV (FOR ANES.) As Ordered ONE (11:55)
[2020-03-01 12:43] VITALS: BP 143/82
--- NOTE | 2020-03-13 11:36 | ROOR ---
Patient Name: Qiana Veloz Procedure Date: 03/01/2020 8:34 AM Date of : 1950 Age: 69 Room: [facility] Gender: Female Note Status: Finalized Procedure: Upper GI endoscopy Indications: Dysphagia, Abnormal cine-esophagram, Weight loss Providers: Rbeel ESPARZA MD Referring MD: GRACIE FAUST Requesting Provider: Medicines: Monitored Anesthesia Care Complications: No immediate complications. Procedure: Pre-Anesthesia Assessment: - The heart rate, respiratory rate, oxygen saturations, blood pressure, adequacy of pulmonary ventilation, and response to care were monitored throughout the procedure. The Endoscope was introduced through the mouth, and advanced to the second part of duodenum. The upper GI endoscopy was accomplished without difficulty. The patient tolerated the procedure well. Findings: The Z-line was variable and was found 40 cm from the incisors. This was biopsied with a cold forceps for histology. No endoscopic abnormality was evident in the esophagus to explain the patient's complaint of dysphagia. It was decided, however, to proceed with dilation at the cricopharyngeus and of the entire esophagus. The scope was withdrawn. Dilation was performed with a Vicente dilator with no resistance at 54 Fr. The dilation site was examined and showed no change. The entire examined stomach was normal. (large volume) The examined duodenum was normal. Biopsies for histology were taken with a cold forceps for evaluation of celiac disease. Impression: - Z-line variable, 40 cm from the incisors. Biopsied. - No endoscopic esophageal abnormality to explain patient's dysphagia. Esophagus dilated. Dilated. - Normal stomach. - Normal examined duodenum. Biopsied. Recommendation: - Await pathology results. - Observe patient's clinical course. - Telephone endoscopist for pathology results in 2 weeks. Rebel Esparza MD Rebel ESPARZA MD 03/01/2020 12:03:02 PM Number of Addenda: 0 Note Initiated On: 03/01/2020 8:34 AM Estimated Blood Loss: Estimated blood loss: none.
--- NOTE | 2020-03-13 11:36 | ROOR ---
Patient Name: Qiana Veloz Procedure Date: 03/01/2020 8:34 AM Date of : 1950 Age: 69 Room: [facility] Gender: Female Note Status: Finalized Procedure: Colonoscopy Indications: Weight loss Providers: Rebel SINGER MD Referring MD: GRACIE FAUST Requesting Provider: Medicines: Monitored Anesthesia Care Complications: No immediate complications. Procedure: Pre-Anesthesia Assessment: - The heart rate, respiratory rate, oxygen saturations, blood pressure, adequacy of pulmonary ventilation, and response to care were monitored throughout the procedure. The Colonoscope was introduced through the anus with the intention of advancing to the cecum. The scope was advanced to the sigmoid colon before the procedure was aborted. Medications were given. The colonoscopy was performed with difficulty due to poor bowel prep with stool present. Findings: The perianal and digital rectal examinations were normal. A large amount of semi-solid stool was found in the rectum and in the sigmoid colon, precluding visualization. Impression: - Stool in the rectum and in the sigmoid colon. Procedure aborted. - No specimens collected. Recommendation: - Repeat colonoscopy at the next available appointment because the bowel preparation was poor. - My office will call you to reschedule the procedure. Rebel SINGER MD 03/01/2020 12:10:08 PM Number of Addenda: 0 Note Initiated On: 03/01/2020 8:34 AM Estimated Blood Loss: Estimated blood loss: none.
[2020-03-22] MEDS ORDERED: TORS10TA3 PO (10:30)
[2020-03-22] MEDS ORDERED: AMLO1TAB25 PO (10:30)
[2020-03-22] MEDS ORDERED: ATOR1TAB21 PO (10:30)
== END 2020-03-01 13:27 | disposition home or self-care (01) ==
LOC: M OPP 10:23
PROVIDERS: ATTEND Internal Medicine Gastroenterology
DX: K22.8 Other specified diseases of esophagus (principal); R13.10 Dysphagia, unspecified; R63.4 Abnormal weight loss; R93.3 Abnormal findings on diagnostic imaging of other parts of digestive tract; I10 Essential (primary) hypertension; E78.5 Hyperlipidemia, unspecified; G47.30 Sleep apnea, unspecified; Z79.899 Other long term (current) drug therapy; Z79.4 Long term (current) use of insulin; Z88.0 Allergy status to penicillin; Z88.5 Allergy status to narcotic agent; Z88.8 Allergy status to other drugs, medicaments and biological substances; Z91.040 Latex allergy status
CPT/HCPCS: 43239; 43450; 88305; J3010

== ENCOUNTER → 2020-03-24 | Outpatient (CLI) | payer OTHER ==
[~2020-03-24] MED LIST changes: +ATOR1TAB21 PO; +ONDA-83 PO; +PRED5PAK PO
== END ==
LOC: M LABSMTC 08:07
PROVIDERS: ATTEND Anesthesiology
DX: Z01.812 Encounter for preprocedural laboratory examination (principal); Z20.828 Contact with and (suspected) exposure to other viral communicable diseases
CPT/HCPCS: C9803; U0003

== ENCOUNTER → 2020-03-25 | Outpatient (CLI) | payer OTHER | LOC: M WUC 16:47 | PROVIDERS: ATTEND Physician Assistant Medical | DX: R63.4 Abnormal weight loss (principal) ==

== ENCOUNTER 2020-03-29 07:44 | Day surgery (SDC) | payer OTHER ==
[~2020-03-29] VITALS: Ht 165.1 cm; Wt 104.7 kg
[~2020-03-29 07:44] MED LIST changes: +NS 1,000 ML IV ONE
[2020-03-29] MEDS ORDERED: LIDOCAINE 2% 100MG/5ML SDV (FOR ANES.) As Ordered ONE (09:11)
[2020-03-29] MEDS ORDERED: propofoL 200 MG/20 ML VIAL As Ordered ONE (09:12)
--- NOTE | 2020-03-29 09:12 | ROOR ---
Patient Name: Qiana Veloz Procedure Date: 03/29/2020 8:40 AM Date of : 1950 Age: 69 Room: [facility] Gender: Female Note Status: Finalized Procedure: Colonoscopy Indications: Weight loss Providers: Rebel ESPARZA MD Referring MD: GRACIE FAUST Requesting Provider: Medicines: Monitored Anesthesia Care Complications: No immediate complications. Procedure: Pre-Anesthesia Assessment: - The heart rate, respiratory rate, oxygen saturations, blood pressure, adequacy of pulmonary ventilation, and response to care were monitored throughout the procedure. The Colonoscope was introduced through the anus and advanced to 5 cm into the ileum. The colonoscopy was performed without difficulty. The patient tolerated the procedure well. The quality of the bowel preparation was adequate. Findings: The perianal and digital rectal examinations were normal. Two sessile polyps were found in the sigmoid colon and ileocecal valve. The polyps were 5 to 6 mm in size. These polyps were removed with a cold snare. Resection and retrieval were complete. Multiple small and large-mouthed diverticula were found in the sigmoid colon. Small Internal Hemorrhoids. The exam was otherwise without abnormality on direct and retroflexion views. Impression: - Two 5 to 6 mm polyps in the sigmoid colon and at the ileocecal valve, removed with a cold snare. Resected and retrieved. - Diverticulosis in the sigmoid colon. - Small Internal Hemorrhoids. - The examination was otherwise normal on direct and retroflexion views. Recommendation: - Repeat colonoscopy in 5 years for surveillance. Rebel Esparza MD Rebel ESPARZA MD 03/29/2020 9:11:56 AM Electronically signed by Rebel ESPARZA MD Number of Addenda: 0 Note Initiated On: 03/29/2020 8:40 AM Estimated Blood Loss: Estimated blood loss: none.
[2020-03-29 09:37] VITALS: BP 127/70
== END 2020-03-29 09:51 | disposition home or self-care (01) ==
LOC: M OPP 07:44
PROVIDERS: ATTEND Internal Medicine Gastroenterology
DX: K63.5 Polyp of colon (principal); K64.8 Other hemorrhoids; K57.30 Diverticulosis of large intestine without perforation or abscess without bleeding; R63.4 Abnormal weight loss; E11.40 Type 2 diabetes mellitus with diabetic neuropathy, unspecified; J44.9 Chronic obstructive pulmonary disease, unspecified; G47.30 Sleep apnea, unspecified; Z79.4 Long term (current) use of insulin; Z79.899 Other long term (current) drug therapy; Z88.0 Allergy status to penicillin; Z88.5 Allergy status to narcotic agent; Z88.8 Allergy status to other drugs, medicaments and biological substances; Z91.040 Latex allergy status

== ENCOUNTER → 2020-04-01 | Outpatient (CLI) | payer OTHER ==
[~2020-04-01] MED LIST changes: -NS 1,000 ML IV ONE
[2020-04-01 20:15] LABS: CREATININE FOR GFR 1.6 MG/DL (0.55-1.30); GLOMERULAR FILTRATION RATE 33.9 (>39)
== END ==
LOC: M WUC 16:56
PROVIDERS: ATTEND Physician Assistant Medical
DX: R63.4 Abnormal weight loss (principal)

== ENCOUNTER → 2020-04-03 | Outpatient (CLI) | payer OTHER ==
[~2020-04-03] MED LIST changes: +PROHANCE 279.3MG/ML 5ML VIAL As Ordered ONE
--- NOTE | 2020-04-09 15:26 | REP ---
MRI ABDOMEN WITH AND WITHOUT CONTRAST HISTORY: Abnormal weight loss. Abnormal CT. COMPARISON: CT 02/13/2020, [facility]. TECHNIQUE: Multiple sequences are obtained in the axial and coronal planes prior to and following the intravenous administration of 10 mL ProHance. FINDINGS: The liver is upper limits normal in size measuring about 16.5 cm in length. There are ill-defined scattered areas of abnormal signal seen throughout both the right and left lobes of the liver as seen on the prior CT. These areas of abnormal signal follow the signal of fat on all sequences, and there is no suspicious enhancement. The findings are consistent with diffuse moderate degree of geographic fatty infiltration of the liver. There is no suspicious enhancing mass. The gallbladder appears unremarkable with no definite filling defect and no evidence of gallbladder wall edema. There is no biliary dilatation. The spleen is normal in size with no intrinsic abnormality. The adrenal glands are normal. No pancreatic mass is seen, and there is no pancreatic duct dilatation. There is a moderate degree of fatty infiltration of the pancreatic parenchyma. The kidneys demonstrate mild cortical thinning with no hydronephrosis or mass. There is a small hiatal hernia. There is no periaortic adenopathy. There is no free fluid. IMPRESSION: Moderate degree of diffuse heterogeneous fatty infiltration of the liver. No suspicious mass or adenopathy identified in the abdomen. Small hiatal hernia. MTDD
== END ==
LOC: M RAD 11:01
PROVIDERS: ATTEND Physician Assistant Medical
DX: R63.4 Abnormal weight loss (principal); R93.3 Abnormal findings on diagnostic imaging of other parts of digestive tract; K76.0 Fatty (change of) liver, not elsewhere classified; K44.9 Diaphragmatic hernia without obstruction or gangrene
CPT/HCPCS: 74183; A9576

== ENCOUNTER → 2020-04-22 | Outpatient (CLI) | payer OTHER ==
[~2020-04-22] MED LIST changes: -PROHANCE 279.3MG/ML 5ML VIAL As Ordered ONE
[2020-04-22 20:24] LABS: CALCIUM LEVEL 8.5 MG/DL (8.8-10.2); CREATININE FOR GFR 1.97 MG/DL (0.55-1.30); GLOMERULAR FILTRATION RATE 26.7 (>39); POTASSIUM SERUM 3.6 MEQ/L (3.5-5.1)
== END ==
LOC: M WUC 16:53
PROVIDERS: ATTEND Physician Assistant Medical
DX: R94.4 Abnormal results of kidney function studies (principal)

== ENCOUNTER → 2020-11-18 | Outpatient (CLI) | payer MEDICARE ==
[~2020-11-18] MED LIST changes: -LISI-538 PO; +LISI20TA33 PO; -RABE1TAB PO; +RABE1TAB4 PO
[2020-11-18 16:55] LABS: BLOOD UREA NITROGEN 10 MG/DL (7-18); CALCIUM LEVEL 9.2 MG/DL (8.8-10.2); CARBON DIOXIDE LEVEL 31 MEQ/L (21-32); CHLORIDE LEVEL 104 MEQ/L (98-107); CREATININE FOR GFR 0.78 MG/DL (0.55-1.30); GLOMERULAR FILTRATION RATE > 60.0 (>39); GLUCOSE, FASTING 108 MG/DL (70-100); POTASSIUM SERUM 3.1 MEQ/L (3.5-5.1); SODIUM LEVEL 140 MEQ/L (136-145)
== END ==
LOC: M WUC 14:22
PROVIDERS: ATTEND Internal Medicine Endocrinology, Diabetes & Metabolism
DX: E11.65 Type 2 diabetes mellitus with hyperglycemia (principal)

== ENCOUNTER → 2021-07-03 | Outpatient (REF) | payer MEDICARE ==
[~2021-07-03] MED LIST changes: +DOXY-443 PO; -DOXY100C37 PO
[2021-07-03 18:00] LABS: MAU/CREAT RATIO 14.1 MCG/MG (0.0-30.0)
== END ==
LOC: M LAB REF 16:53
PROVIDERS: ATTEND Nurse Practitioner Family
DX: E11.65 Type 2 diabetes mellitus with hyperglycemia (principal)

== ENCOUNTER → 2022-08-20 | Outpatient (CLI) | payer MEDICARE ==
[~2022-08-20] MED LIST changes: -CITA40TA4 PO; +CITA40TA7 PO; +FISH10005 PO; -FISH7.5C PO; +LOSA100T45 PO; -LOSA100T50 PO
[2022-08-20 17:00] LABS: HEMATOCRIT 38.2 % (36.0-47.0); HEMOGLOBIN 12.3 g/dl (12.0-15.5); MEAN CORPUSCULAR HEMOGLOBIN 31.1 pg (27.0-33.0); MEAN CORPUSCULAR HGB CONC 32.2 g/dl (32.0-36.5); MEAN CORPUSCULAR VOLUME 96.5 fl (80.0-96.0); PLATELET COUNT, AUTOMATED 251 10^3/uL (150-450); RED BLOOD COUNT 3.96 10^6/uL (4.00-5.40); WHITE BLOOD COUNT 11.6 10^3/uL (4.0-10.0)
[2022-08-20 17:02] LABS: ALBUMIN 3.3 G/DL (3.2-5.2); BILIRUBIN,TOTAL 0.4 MG/DL (0.3-1.2); CHOLESTEROL RISK RATIO 4.44 (<5); CREATININE FOR GFR 1.04 MG/DL (0.55-1.30); GLOMERULAR FILTRATION RATE 55.3 (>39); HDL CHOLESTEROL 50.9 MG/DL (>40); LDL CHOLESTEROL 142.3 MG/DL (<100); POTASSIUM SERUM 3.5 MMOL/L (3.5-5.1); TOTAL PROTEIN 6.7 G/DL (5.7-8.2)
[2022-08-20 17:04] LABS: THYROID STIMULATING HORMONE 5.298 uIU/ML (0.55-4.78)
[2022-08-20 17:18] LABS: ERYTHROCYTE SEDIMENTATION RATE 34 mm/hr (0-30)
[2022-08-20 18:04] LABS: HEMOGLOBIN A1c 7.6 % (4.0-6.0)
== END ==
LOC: M WUC 14:02
PROVIDERS: ATTEND Physician Assistant
DX: J44.1 Chronic obstructive pulmonary disease with (acute) exacerbation (principal); E78.5 Hyperlipidemia, unspecified; M35.3 Polymyalgia rheumatica; E11.9 Type 2 diabetes mellitus without complications

== ENCOUNTER → 2022-11-05 | Outpatient (CLI) | payer MEDICARE ==
[~2022-11-05] MED LIST changes: -COZA50TA PO; +INSU100I6 SC; -LEVE1INJ5 SC; +LOSA-528 PO; -LOSA100T45 PO; +LOSA100T46 PO
[2022-11-05 19:08] LABS: HEMATOCRIT 37.8 % (36.0-47.0); HEMOGLOBIN 12.1 g/dl (12.0-15.5); MEAN CORPUSCULAR HEMOGLOBIN 30.6 pg (27.0-33.0); MEAN CORPUSCULAR VOLUME 95.5 fl (80.0-96.0); PLATELET COUNT, AUTOMATED 363 10^3/uL (150-450); RED BLOOD COUNT 3.96 10^6/uL (4.00-5.40); WHITE BLOOD COUNT 9.3 10^3/uL (4.0-10.0)
[2022-11-05 19:26] LABS: HEMOGLOBIN A1c 7.1 % (4.0-6.0)
[2022-11-05 19:37] LABS: THYROID STIMULATING HORMONE 4.119 uIU/ML (0.55-4.78)
[2022-11-05 19:56] LABS: ALBUMIN 3.1 G/DL (3.2-5.2); BILIRUBIN,TOTAL 0.6 MG/DL (0.3-1.2); CALCIUM LEVEL 9.2 MG/DL (8.3-10.6); CREATININE FOR GFR 1.08 MG/DL (0.55-1.30); GLOMERULAR FILTRATION RATE 52.9 (>39); TOTAL PROTEIN 6.6 G/DL (5.7-8.2)
== END ==
LOC: M WUC 15:11
PROVIDERS: ATTEND Physician Assistant
DX: R11.2 Nausea with vomiting, unspecified (principal); E03.9 Hypothyroidism, unspecified; E11.9 Type 2 diabetes mellitus without complications

== ENCOUNTER → 2023-01-15 | Outpatient (REF) | payer MEDICARE ==
[2023-01-15 18:18] LABS: CREATININE, URINE 250.1 MG/DL; MAU/CREAT RATIO 8.7 MCG/MG (0.0-30.0)
== END ==
LOC: M LAB REF 17:03
PROVIDERS: ATTEND Nurse Practitioner Family
DX: E11.65 Type 2 diabetes mellitus with hyperglycemia (principal)

== ENCOUNTER → 2023-05-24 | Outpatient (CLI) | payer MEDICARE ==
[~2023-05-24] MED LIST changes: +PEN-308 SC; -PEN1MIS21 SC
== END ==
LOC: M WUC 15:27
PROVIDERS: ATTEND Physician Assistant
DX: M16.11 Unilateral primary osteoarthritis, right hip (principal); M19.011 Primary osteoarthritis, right shoulder

== ENCOUNTER → 2023-09-10 | Outpatient (CLI) | payer MEDICARE ==
[~2023-09-10] MED LIST changes: +HYDR-161 PO; -HYDR10TAB PO
[2023-09-10 19:07] LABS: HEMATOCRIT 39.5 % (36.0-47.0); HEMOGLOBIN 12.6 g/dl (12.0-15.5); MEAN CORPUSCULAR HEMOGLOBIN 30.3 pg (27.0-33.0); MEAN CORPUSCULAR HGB CONC 31.9 g/dl (32.0-36.5); PLATELET COUNT, AUTOMATED 256 10^3/uL (150-450); RED BLOOD COUNT 4.16 10^6/uL (4.00-5.40)
[2023-09-10 19:55] LABS: ALBUMIN 3.2 G/DL (3.2-5.2); BILIRUBIN,TOTAL 0.4 MG/DL (0.3-1.2); CALCIUM LEVEL 8.2 MG/DL (8.3-10.6); CHOLESTEROL RISK RATIO 4.47 (<5); CREATININE FOR GFR 1.06 MG/DL (0.55-1.30); GLOMERULAR FILTRATION RATE 53.9 (>39); HDL CHOLESTEROL 41.8 MG/DL (>40); NON-HDL-C 145.2 MG/DL; THYROID STIMULATING HORMONE 4.089 uIU/ML (0.55-4.78); TOTAL PROTEIN 6.5 G/DL (5.7-8.2)
[2023-09-10 20:05] LABS: POTASSIUM SERUM 2.6 MMOL/L (3.5-5.1)
[2023-09-13 15:50] LABS: WHITE BLOOD COUNT 11.7 10^3/uL (4.0-10.0)
== END ==
LOC: M WUC 15:23
PROVIDERS: ATTEND Physician Assistant
DX: E78.5 Hyperlipidemia, unspecified (principal); I10 Essential (primary) hypertension; M35.3 Polymyalgia rheumatica

== ENCOUNTER → 2024-03-21 | Outpatient (CLI) | payer MEDICARE ==
[~2024-03-21] MED LIST changes: +DOXY-323 PO; -DOXY-443 PO
[2024-03-21 19:43] LABS: HEMATOCRIT 40.7 % (36.0-47.0); MEAN CORPUSCULAR HEMOGLOBIN 31.3 pg (27.0-33.0); MEAN CORPUSCULAR HGB CONC 31.9 g/dl (32.0-36.5); MEAN CORPUSCULAR VOLUME 97.8 fl (80.0-96.0); PLATELET COUNT, AUTOMATED 200 10^3/uL (150-450); RED BLOOD COUNT 4.16 10^6/uL (4.00-5.40)
[2024-03-21 20:10] LABS: ALBUMIN 3.2 G/DL (3.2-5.2); BILIRUBIN,TOTAL 0.4 MG/DL (0.3-1.2); CALCIUM LEVEL 9.4 MG/DL (8.3-10.6); CHOLESTEROL RISK RATIO 4.17 (<5); CREATININE FOR GFR 1.15 MG/DL (0.55-1.30); GLOMERULAR FILTRATION RATE 49.1 (>39); POTASSIUM SERUM 3.8 MMOL/L (3.5-5.1); TOTAL PROTEIN 6.7 G/DL (5.7-8.2)
[2024-03-21 20:13] LABS: THYROID STIMULATING HORMONE 4.349 uIU/ML (0.55-4.78)
== END ==
LOC: M WUC 14:39
PROVIDERS: ATTEND Physician Assistant
DX: I10 Essential (primary) hypertension (principal); E78.5 Hyperlipidemia, unspecified

== ENCOUNTER → 2025-03-08 | Outpatient (CLI) | payer MEDICARE ==
[~2025-03-08] MED LIST changes: +ATOR40TA75 PO; -DOXY-323 PO; +DOXY-441 PO; +GLIP10TA15 PO; -GLIP10TA6 PO; +POTA540T5 PO; +PRED5TA PO; +PREG-35 PO; -PREG100CA PO; -PREG50CA PO; +PREG50CA87 PO; -RABE1TAB4 PO; +RABE1TAB5 PO; +THERTAB52 PO; +TRES1INJ SC; +VITA100093 PO; +VITATAB73 PO
== END ==
LOC: M WUC 15:31
PROVIDERS: ATTEND Physician Assistant
DX: M54.50 Low back pain, unspecified (principal)

== ENCOUNTER → 2025-03-08 | Outpatient (CLI) | payer MEDICARE ==
[2025-03-08 19:12] LABS: VITAMIN B12 LEVEL 820 PG/ML (211-911)
[2025-03-14 04:48] LABS: VITAMIN E(ALPHA TOCOPHEROL) 31.3 mg/L (5.7-19.9); VITAMIN E(GAMMA TOCOPHEROL) 1.4 mg/L (<=4.3)
== END ==
LOC: M WUC 15:29
PROVIDERS: ATTEND Psychiatry & Neurology Neurology
DX: R42 Dizziness and giddiness (principal)

== ENCOUNTER 2025-04-23 06:00 | Day surgery (SDC) | payer MEDICARE ==
[~2025-04-23] VITALS: Ht 162.6 cm; Wt 97.5 kg
[2025-04-23] MEDS: PHENYLEPHRINE 2.5% OPHTH SOL 2ML OD SCH (06:44)
[2025-04-23] MEDS: CYCLOPENTOLATE 1% OPHTH SOLN 2 ML BTL OD SCH (06:44)
[2025-04-23] MEDS: FLURBIPROFEN 0.03% OPHTH SOLN 2.5 ML OD SCH (06:44)
[2025-04-23] MEDS: TETRACAINE 0.5% OPHTH SOLN 4ML OD SCH (06:44)
[2025-04-23] MEDS ORDERED: LR 1,000 ML IV SCH (07:00)
[2025-04-23] MEDS ORDERED: MIDAZOLAM INJ 2 MG/2 ML VIAL As Ordered ONE (07:05)
[2025-04-23] MEDS: LIDOCAINE 1% SDV 5 ML VIAL As Ordered ONE (07:38)
[2025-04-23] MEDS: CEFUROXIME 1 MG/0.1 ML INTRACAMERAL INJ As Ordered ONE (07:38)
[2025-04-23 07:57] VITALS: BP 111/54; TEMP 99; O2SAT 95
== END 2025-04-23 08:21 | disposition home or self-care (01) ==
LOC: M SDC 06:00
PROVIDERS: ATTEND Ophthalmology
DX: E11.36 Type 2 diabetes mellitus with diabetic cataract (principal); H25.11 Age-related nuclear cataract, right eye; I10 Essential (primary) hypertension; E78.00 Pure hypercholesterolemia, unspecified; Z79.4 Long term (current) use of insulin; D64.9 Anemia, unspecified; Z79.899 Other long term (current) drug therapy; G47.30 Sleep apnea, unspecified; M35.3 Polymyalgia rheumatica; Z85.828 Personal history of other malignant neoplasm of skin; Z98.42 Cataract extraction status, left eye; K58.9 Irritable bowel syndrome, unspecified; Z88.0 Allergy status to penicillin; Z88.5 Allergy status to narcotic agent; Z88.8 Allergy status to other drugs, medicaments and biological substances; Z91.040 Latex allergy status
CPT/HCPCS: 66984; J0697; J2250; J3010; V2632

== ENCOUNTER → 2025-06-14 | Outpatient (CLI) | payer MEDICARE ==
[~2025-06-14] MED LIST changes: -FISH10005 PO; +FISH1CAP38 PO
[2025-06-14 18:18] LABS: BASO # 0.1 10^3/uL (0.0-0.2); BASO % 0.9 % (0.0-1.0); EOS # 0.2 10^3/uL (0.0-0.5); EOS % 2.2 % (0.0-3.0); LYMPH # 2.5 10^3/uL (1.5-5.0); LYMPH % 25.9 % (24.0-44.0); MONO # 0.7 10^3/uL (0.0-0.8); MONO % 6.9 % (2.0-8.0); NEUTROPHILS # 6.2 10^3/uL (1.5-8.5); NEUTROPHILS % 63.5 % (36.0-66.0); PLATELET COUNT, AUTOMATED 242 10^3/uL (150-450)
[2025-06-14 18:21] LABS: ALT/SGPT 14.0 U/L (7.0-40); AST/SGOT 18.0 U/L (<34); CALCIUM LEVEL 8.9 MG/DL (8.3-10.6); CARBON DIOXIDE LEVEL 28.0 MMOL/L (20-31); CHLORIDE LEVEL 103.0 MMOL/L (98-107); CREATININE FOR GFR 1.04 MG/DL (0.55-1.30); GLOMERULAR FILTRATION RATE 55.7 (>39); POTASSIUM SERUM 3.8 MMOL/L (3.5-5.1); SODIUM LEVEL 139.0 MMOL/L (136-145)
[2025-06-14 18:23] LABS: FREE T4 0.99 NG/DL (0.89-1.76)
[2025-06-14 18:25] LABS: TOTAL 25(OH) VITAMIN D 28.8 NG/ML (20.0-100.0)
== END ==
LOC: M WUC 14:51
PROVIDERS: ATTEND Nurse Practitioner Family
DX: E11.65 Type 2 diabetes mellitus with hyperglycemia (principal)